=== PATIENT | female | born 1950 | race Caucasian/White ===

== ENCOUNTER → 2016-04-15 | Outpatient (CLI) | payer MEDICARE, MEDICAID | LOC: OD 12:16 | PROVIDERS: ATTEND Family Medicine | DX: M25.552 Pain in left hip (principal); M25.512 Pain in left shoulder ==

== ENCOUNTER → 2016-05-23 | Outpatient (CLI) | payer MEDICARE, MEDICAID | LOC: WI 09:36 | PROVIDERS: ATTEND Physician Assistant | DX: M81.0 Age-related osteoporosis without current pathological fracture (principal) | CPT/HCPCS: 77080 ==

== ENCOUNTER 2016-12-17 17:33 | Emergency (ER) | payer MEDICARE, MEDICAID ==
--- NOTE | 2016-12-17 18:33 | ER Document Report ---
ED General - General Mode of Arrival: Medic Information source: Patient TRAVEL OUTSIDE OF THE U.S. IN LAST 30 DAYS: No - HPI Similar symptoms previously: Yes Recently seen / treated by doctor: No <MAGGIE MURRELL - Last Filed: 12/17/16 19:29> <DANIEL PETERSON - Last Filed: 12/17/16 22:18> - General Chief Complaint: Facial Injury Stated Complaint: FALL Time Seen by Provider: 12/17/16 18:12 Notes: Patient is a 66-year-old female presenting to the emergency department via EMS for fall. Patient states that 1 of her neighbors contacted EMS and told them that she had fallen again. Patient states she does not know which neighbor contacted EMS. Patient states that the facial bruising was caused from her fall on Monday. Patient states that she has had hypotension and was 88/68 with EMS. Increased falls and weakness due to her hypotension. Patient states that she is being worked up for this at Dr. Lopez's office. Patient did have a history of hypertension and she has been taken off all of her medications for such. Patient also complains of some pain to her knees and ribs. Patient requests to get a shingles vaccination. PCP Dr. Lopez. (MAGGIE MURRELL) Review of the [place] control substance reporting system shows the patient used to be on oxycodone 10 mg 4 times daily. She has not filled a prescription for this medication now in the past 3-4 months. She is asking for a shingles vaccine because she has recently had an outbreak of shingles on her left upper back. Examination shows this to be a fairly new outbreak, she reports just noticing it yesterday. (DANIEL PETERSON) - Related Data Allergies/Adverse Reactions: Beta-Blockers (Beta-Adrenergic Bloc Allergy (Verified 07/25/13 12:39) Iodinated Contrast- Oral and IV Dye [IV Dye, Iodine Containing] Allergy ( Verified 07/25/13 12:39) Past Medical History - General Information source: Patient - Social History Smoking Status: Never Smoker Cigarette use (# per day): No Chew tobacco use (# tins/day): No Smoking Education Provided: No Frequency of alcohol use: None Drug Abuse: None Family History: None Patient has suicidal ideation: No Patient has homicidal ideation: No - Past Medical History Cardiac Medical History: Reports: Hx Coronary Artery Disease, Hx Hypercholesterolemia, Hx Hypertension Endocrine Medical History: Reports: Hx Diabetes Mellitus Type 2 Musculoskeltal Medical History: Reports Hx Gout Psychiatric Medical History: Reports: Hx Depression Past Surgical History: Reports: Hx Cardiac Catheterization, Hx Cardiac Surgery - stents - Immunizations Hx Diphtheria, Pertussis, Tetanus Vaccination: Yes <MAGGIE MURRELL - Last Filed: 12/17/16 19:29> Review of Systems - Review of Systems Constitutional: See HPI, Weakness EENT: No symptoms reported Cardiovascular: See HPI Respiratory: No symptoms reported Gastrointestinal: No symptoms reported Genitourinary: No symptoms reported Female Genitourinary: No symptoms reported Musculoskeletal: See HPI Skin: See HPI Hematologic/Lymphatic: No symptoms reported Neurological/Psychological: See HPI, Weakness -: Yes All other systems reviewed and negative <HANDYMAGGIE - Last Filed: 12/17/16 19:29> Physical Exam - Vital signs Interpretation: Hypotensive <MAGGIE MURRELL - Last Filed: 12/17/16 19:29> <DANIEL PETERSON - Last Filed: 12/17/16 22:18> - Vital signs Vitals: Temp Pulse Resp BP Pulse Ox 98.5 F 68 16 91/62 L 20 L 12/17/16 18:00 12/17/16 18:00 12/17/16 18:00 12/17/16 18:00 12/17/16 18:00 - Notes Notes: GENERAL: Alert, interacts well. No acute distress. HEAD: Normocephalic, old bruising to the right forehead and right jaw. Abrasions to the right zygomatic face. EYES: Appear normal. Pupils equal, round, and reactive to light. ENT: Moist mucus membranes, tongue midline. NECK: Full range of motion. Supple. Trachea midline. LUNGS: Clear to auscultation bilaterally, no wheezes, rales, or rhonchi. No respiratory distress. Tenderness to palpate over the right inferior-lateral ribs. HEART: Regular rate and rhythm. No murmurs, gallops, or rubs. ABDOMEN: Soft, non-tender. Non-distended. Normal bowel sounds. EXTREMITIES: Moves all 4 extremities spontaneously. Normal strength. Abrasions and contusions to the anterior knees bilaterally. No edema. NEUROLOGICAL: Alert and oriented x3. Normal speech. No focal neurological deficits. GCS 15. PSYCH: Normal affect, normal mood. SKIN: Warm, dry, normal turgor. Shingle-like vesicles and erythematous patches around the left T2 region. (MAGGIE MURRELL) Course - Laboratory Result Diagrams: 12/17/16 18:22 12/17/16 18:22 <MAGGIE MURRELL - Last Filed: 12/17/16 19:29> - Laboratory Result Diagrams: 12/17/16 18:22 12/17/16 18:22 - Diagnostic Test Radiology reviewed: Image reviewed, Reports reviewed - X-ray shows a mildly displaced transverse fracture of the right eighth rib anteriorly. CT scan of the head does not show any acute abnormality. <DANIEL PETERSON - Last Filed: 12/17/16 22:18> - Re-evaluation Re-evalutation: 12/17/16 22:18 Orthostatic vital signs show the patient's systolic pressure stays in the 90s the entire time and she does not get symptomatic. She was then allowed to walk around the department and remained quite steady on her feet, denied any symptoms at all and did not have a drop in blood pressure. Her son was called and he will come pick her up. (DANIEL PETERSON) - Vital Signs Vital signs: Temp Pulse Resp BP Pulse Ox 98.5 F 68 20 92/56 L 98 12/17/16 18:00 12/17/16 18:00 12/17/16 20:07 12/17/16 21:37 12/17/16 21:37 - Laboratory Laboratory results interpreted by me: 12/17/16 12/17/16 18:22 18:22 RBC 2.87 L Hgb 9.3 L Hct 27.4 L RDW 14.6 H Plt Count 113 L Monocytes % 13.4 H Chloride 110 H Creatinine 1.46 H Est GFR ( Amer) 43 L Est GFR (Non-Af Amer) 36 L Glucose 129 H Calcium 8.3 L Total Protein 5.5 L Albumin 3.3 L Discharge <MAGGIE MURRELL - Last Filed: 12/17/16 19:29> <DANIEL PETERSON - Last Filed: 12/17/16 22:18> - Discharge Clinical Impression: Fall Qualifiers: Encounter type: initial encounter Qualified Code(s): W19.XXXA - Unspecified fall, initial encounter Facial contusion Qualifiers: Encounter type: initial encounter Qualified Code(s): S00.83XA - Contusion of other part of head, initial encounter Closed rib fracture Qualifiers: Encounter type: initial encounter Rib fracture type: single rib Laterality: right Qualified Code(s): S22.31XA - Fracture of one rib, right side, initial encounter for closed fracture Shingles outbreak Qualifiers: Herpes zoster complications: without complications Qualified Code(s): B02.9 - Zoster without complications Hypotension Qualifiers: Hypotension type: unspecified hypotension type Qualified Code(s): I95.9 - Hypotension, unspecified Condition: Stable Disposition: HOME, SELF-CARE Additional Instructions: Your blood pressure has come up with IV fluids. Your examination shows that you have a recent outbreak of shingles on your left upper back. X-rays show you have a mildly displaced fracture of the right eighth rib. The CT scan of your head did not show any facial fractures or abnormalities of your brain. With rib fractures it is important to take big deep breath and cough regularly to keep the lungs inflated. Take the acyclovir(Zovirax) as prescribed for the shingles. Take the pain medications as needed. Drink plenty of fluids. Take fall precautions. Follow-up with your doctor Monday to review your problems with continued low blood pressure. Prescriptions: Acyclovir 800 mg PO Q6 #28 tablet Oxycodone HCl/Acetaminophen [Percocet 5-325 mg Tablet] 1 - 2 tab PO ASDIR PRN # 15 tablet PRN Reason: Referrals: TENISHA LOPEZ MD [Primary Care Provider] - 12/19/16 Scribe Attestation: 12/17/16 22:12 I personally performed the services described in the documentation, reviewed and edited the documentation which was dictated to the scribe in my presence, and it accurately records my words and actions. (DANIEL PETERSON) [employer] Documentation - Scribe Written by Dana:: Dana Kirkpatrick, 12/17/2016 1900 acting as scribe for :: Tam <MAGGIE MURRELL - Last Filed: 12/17/16 19:29>
[2016-12-17 18:44] LABS: ALANINE AMINOTRANSFERASE 39 U/L (9-52); ALBUMIN 3.3 g/dL (3.5-5.0); ALKALINE PHOSPHATASE 68 U/L (38-126); ANION GAP 7 (5-19); ASPARTATE AMINO TRANSFERASE 36 U/L (14-36); BILIRUBIN,DIRECT 0.4 mg/dL (0.0-0.4); BILIRUBIN,TOTAL 0.5 mg/dL (0.2-1.3); BLOOD UREA NITROGEN 19 mg/dL (7-20); CALCIUM 8.3 mg/dL (8.4-10.2); CARBON DIOXIDE 23 mmol/L (22-30); CHLORIDE 110 mmol/L (98-107); CREATININE RESULT 1.46 mg/dL (0.52-1.25); GLUCOSE 129 mg/dL (75-110); POTASSIUM 4.3 mmol/L (3.6-5.0); SODIUM 139.8 mmol/L (137-145); TOTAL PROTEIN 5.5 g/dL (6.3-8.2)
[2016-12-17 18:50] LABS: ABSOLUTE EOSINOPHILS # (AUTO) 0.1 10^3/uL (0.0-0.6); ABSOLUTE LYMPHOCYTES (AUTO) 0.8 10^3/uL (0.5-4.7); ABSOLUTE MONOCYTES (AUTO) 0.8 10^3/uL (0.1-1.4); BASOPHILS % (AUTO) 0.4 % (0-2); HEMATOCRIT 27.4 % (36.0-47.0); HEMOGLOBIN 9.3 g/dL (12.0-15.5); HGB HCT DIFFERENCE 0.5; LYMPHOCYTES % (AUTO) 14.2 % (13-45); MEAN CORPUSCULAR HEMOGLOBIN 32.4 pg (27.0-33.4); MEAN CORPUSCULAR HGB CONC 33.9 g/dL (32.0-36.0); MEAN CORPUSCULAR VOLUME 96 fl (80-97); MONOCYTES % (AUTO) 13.4 % (3-13); RED BLOOD COUNT 2.87 10^6/uL (3.72-5.28); RED CELL DISTRIBUTION WIDTH 14.6 % (11.5-14.0); WHITE BLOOD COUNT 5.7 10^3/uL (4.0-10.5)
--- NOTE | 2016-12-17 18:57 | RADIOLOGY REPORT (SQ) ---
EXAM DESCRIPTION: CT HEAD WITHOUT COMPLETED DATE/TIME: 12/17/2016 6:43 pm REASON FOR STUDY: Plavix, fall, hit Right face and forehead COMPARISON: None. TECHNIQUE: Axial images acquired through the brain without intravenous contrast. Images reviewed wi th bone, brain and subdural windows. Images stored on PACS. All CT scanners at this facility use dose modulation, iterative reconstruction, and/or weight based d osing when appropriate to reduce radiation dose to as low as reasonably achievable (ALARA). [facility]: Dose Right [facility]: CareDose [facility]: Dose Right [facility]: Teradose 4D [facility]: QXL [employer] RADIATION DOSE: Up-to-date CT equipment and radiation dose reduction techniques were employed. CTDIv ol: 64.6 mGy. DLP: 1163 mGy-cm. mGy. LIMITATIONS: None. FINDINGS: VENTRICLES: Normal size and contour. CEREBRUM: No masses. No hemorrhage. No midline shift. No evidence for acute infarction. Normal gra y/white matter differentiation. No areas of low density in the white matter. CEREBELLUM: No masses. No hemorrhage. No alteration of density. No evidence for acute infarction. EXTRAAXIAL SPACES: No fluid collections. No masses. ORBITS AND GLOBE: No intra- or extraconal masses. Normal contour of globe without masses. CALVARIUM: No fracture. PARANASAL SINUSES: No fluid or mucosal thickening. SOFT TISSUES: No mass or hematoma. OTHER: No other significant finding. IMPRESSION: NORMAL BRAIN CT WITHOUT CONTRAST. EVIDENCE OF ACUTE STROKE: NO. COMMENT: Quality ID # 436: Final reports with documentation of one or more dose reduction techniques (e.g., Automated exposure control, adjustment of the mA and/or kV according to patient size, use of iterative reconstruction technique) TECHNICAL DOCUMENTATION: JOB ID: [id number]- All Rights Reserved
--- NOTE | 2016-12-17 19:03 | RADIOLOGY REPORT (SQ) ---
EXAM DESCRIPTION: RIBS RIGHT W/PA CHEST COMPLETED DATE/TIME: 12/17/2016 6:50 pm REASON FOR STUDY: fall, right rib pain COMPARISON: None. TECHNIQUE: Frontal view of the chest and additional views of the right ribs acquired. NUMBER OF VIEWS: Three view. LIMITATIONS: None. FINDINGS: FRONTAL CXR: No pneumothorax. No pleural effusion. No atelectasis or infiltrates. RIBS: There is a mildly displaced transverse fracture of the right 8th rib anteriorly. OTHER: No other significant finding. IMPRESSION: Mildly displaced transverse fracture of the right 8th rib anteriorly. No pneumothorax. COMMENT: SITE OF TRAUMA/COMPLAINT MARKED/STAMP COMPLETED: YES. TECHNICAL DOCUMENTATION: JOB ID: [id number] [employer]- All Rights Reserved
[2016-12-17] MEDS ORDERED: HYDROCODONE/ACETAMINOPHEN 5-325 MG 6 TAB/DSPK PO PRN ×2 (19:24→22:13)
[2016-12-17] MEDS ORDERED: ACYCLOVIR 800 MG TABLET PO ONE (19:24)
[2016-12-17] MEDS ORDERED: OXYCODONE-ACETAMINOPHEN 5-325 MG TABLET PO ONE (19:24)
[2016-12-17] MEDS ORDERED: NORMAL SALINE 1000 ML 1,000 ML IV ONE (19:34)
[2016-12-17] MEDS ORDERED: ACYCLOVIR 800 MG TABLET ONE (20:59)
[2016-12-17 23:13] VITALS: BP 101/57
[2016-12-17 23:18] LABS: AMORPHOUS SEDIMENT,URINE TRACE /HPF; APPEARANCE,URINE SLIGHTLY-CLOUDY; BILIRUBIN,URINE NEGATIVE (NEGATIVE); GLUCOSE, URINE NEGATIVE (NEGATIVE); KETONES,URINE NEGATIVE (NEGATIVE); LEUKOCYTE ESTERASE,URINE MODERATE (NEGATIVE); NITRITE,URINE NEGATIVE (NEGATIVE); PROTEIN,URINE 30 mg/dL (NEGATIVE); URINE SPECIFIC GRAVITY 1.015; UROBILINOGEN,URINE NEGATIVE mg/dL (<2.0)
== END 2016-12-17 23:05 | disposition home or self-care (01) ==
LOC: ER 17:33
DX: S00.83XA Contusion of other part of head, initial encounter (principal); S22.31XA Fracture of one rib, right side, initial encounter for closed fracture; I10 Essential (primary) hypertension; B02.9 Zoster without complications; I95.9 Hypotension, unspecified; W19.XXXA Unspecified fall, initial encounter
CPT/HCPCS: 99284; 96360; 36415; 85025; 80053; 81001; 71101; 70450; A9270 ×3; J7030; J3490

== ENCOUNTER → 2017-02-27 | Outpatient (CLI) | payer MEDICARE, MEDICAID ==
[2017-02-27 09:40] LABS: APPEARANCE,URINE CLEAR; BILIRUBIN,URINE NEGATIVE (NEGATIVE); GLUCOSE, URINE NEGATIVE (NEGATIVE); KETONES,URINE NEGATIVE (NEGATIVE); LEUKOCYTE ESTERASE,URINE SMALL (NEGATIVE); NITRITE,URINE NEGATIVE (NEGATIVE); PROTEIN,URINE NEGATIVE (NEGATIVE); URINE SPECIFIC GRAVITY 1.008; UROBILINOGEN,URINE NEGATIVE mg/dL (<2.0)
[2017-02-27 09:48] LABS: ABSOLUTE EOSINOPHILS # (AUTO) 0.1 10^3/uL (0.0-0.6); ABSOLUTE LYMPHOCYTES (AUTO) 1.4 10^3/uL (0.5-4.7); ABSOLUTE MONOCYTES (AUTO) 0.5 10^3/uL (0.1-1.4); ABSOLUTE NEUT (AUTO) 6.8 10^3/uL (1.7-8.2); BASOPHILS % (AUTO) 0.4 % (0-2); EOSINOPHILS % (AUTO) 0.7 % (0-6); HEMOGLOBIN 8.3 g/dL (12.0-15.5); HGB HCT DIFFERENCE -0.1; LYMPHOCYTES % (AUTO) 15.5 % (13-45); MEAN CORPUSCULAR HEMOGLOBIN 32.1 pg (27.0-33.4); MEAN CORPUSCULAR HGB CONC 33.3 g/dL (32.0-36.0); MEAN CORPUSCULAR VOLUME 96 fl (80-97); MONOCYTES % (AUTO) 5.8 % (3-13); RED BLOOD COUNT 2.59 10^6/uL (3.72-5.28); RED CELL DISTRIBUTION WIDTH 14.4 % (11.5-14.0); SEGMENTED NEUTROPHILS % (AUTO) 77.6 % (42-78); WHITE BLOOD COUNT 8.8 10^3/uL (4.0-10.5)
[2017-02-27 10:15] LABS: ANION GAP 15 (5-19); BLOOD UREA NITROGEN 36 mg/dL (7-20); CALCIUM 8.3 mg/dL (8.4-10.2); CARBON DIOXIDE 17 mmol/L (22-30); CHLORIDE 110 mmol/L (98-107); GLUCOSE 167 mg/dL (75-110); PHOSPHORUS 3.2 mg/dL (2.5-4.5); POTASSIUM 4.5 mmol/L (3.6-5.0); SODIUM 142.4 mmol/L (137-145)
[2017-02-28 11:40] LABS: CREATININE URINE 33.9 mg/dL (Not Estab.); MICROALBUMIN URINE 9.9 ug/mL (Not Estab.)
== END ==
LOC: LAB 09:29
PROVIDERS: ATTEND Internal Medicine Nephrology
DX: N18.3 Chronic kidney disease, stage 3 (moderate) (principal); E11.9 Type 2 diabetes mellitus without complications; D64.9 Anemia, unspecified; N17.9 Acute kidney failure, unspecified
CPT/HCPCS: 36415; 80048; 81001; 82043; 82570; 82728; 83540; 83550; 83735; 83970; 84100; 85025

== ENCOUNTER → 2017-03-22 | Outpatient (CLI) | payer MEDICARE, MEDICAID ==
[2017-03-22 10:47] LABS: ABSOLUTE EOSINOPHILS # (AUTO) 0.2 10^3/uL (0.0-0.6); ABSOLUTE LYMPHOCYTES (AUTO) 1.2 10^3/uL (0.5-4.7); ABSOLUTE MONOCYTES (AUTO) 0.7 10^3/uL (0.1-1.4); ABSOLUTE NEUT (AUTO) 6.1 10^3/uL (1.7-8.2); BASOPHILS % (AUTO) 0.3 % (0-2); EOSINOPHILS % (AUTO) 2.1 % (0-6); HEMATOCRIT 24.7 % (36.0-47.0); HEMOGLOBIN 8.2 g/dL (12.0-15.5); LYMPHOCYTES % (AUTO) 14.7 % (13-45); MEAN CORPUSCULAR HEMOGLOBIN 32.7 pg (27.0-33.4); MEAN CORPUSCULAR HGB CONC 33.2 g/dL (32.0-36.0); MEAN CORPUSCULAR VOLUME 99 fl (80-97); MONOCYTES % (AUTO) 8.9 % (3-13); PLATELET COUNT 189 10^3/uL (150-450); RED CELL DISTRIBUTION WIDTH 14.8 % (11.5-14.0); TOTAL CELLS COUNTED % (AUTO) 100 %; WHITE BLOOD COUNT 8.3 10^3/uL (4.0-10.5)
[2017-03-22 11:05] LABS: ANION GAP 13 (5-19); BLOOD UREA NITROGEN 25 mg/dL (7-20); CALCIUM 9.4 mg/dL (8.4-10.2); CARBON DIOXIDE 22 mmol/L (22-30); CHLORIDE 108 mmol/L (98-107); GLUCOSE 93 mg/dL (75-110); MAGNESIUM 2.3 mg/dL (1.6-2.3); POTASSIUM 4.3 mmol/L (3.6-5.0)
== END ==
LOC: LAB 10:32
PROVIDERS: ATTEND Internal Medicine Nephrology
DX: N17.9 Acute kidney failure, unspecified (principal); D63.8 Anemia in other chronic diseases classified elsewhere; E21.3 Hyperparathyroidism, unspecified
CPT/HCPCS: 36415; 80048; 83735; 83970; 85025

== ENCOUNTER → 2017-07-17 | Outpatient (CLI) | payer MEDICARE, MEDICAID ==
[2017-07-17 14:31] LABS: ABSOLUTE BASOPHILS # (AUTO) 0.1 10^3/uL (0.0-0.2); ABSOLUTE EOSINOPHILS # (AUTO) 0.2 10^3/uL (0.0-0.6); ABSOLUTE LYMPHOCYTES (AUTO) 1.3 10^3/uL (0.5-4.7); ABSOLUTE MONOCYTES (AUTO) 0.5 10^3/uL (0.1-1.4); BASOPHILS % (AUTO) 0.9 % (0-2); EOSINOPHILS % (AUTO) 2.7 % (0-6); LYMPHOCYTES % (AUTO) 18.6 % (13-45); MEAN CORPUSCULAR HEMOGLOBIN 31.1 pg (27.0-33.4); MEAN CORPUSCULAR HGB CONC 33.2 g/dL (32.0-36.0); MEAN CORPUSCULAR VOLUME 94 fl (80-97); MONOCYTES % (AUTO) 6.9 % (3-13); PLATELET COUNT 205 10^3/uL (150-450); RED BLOOD COUNT 3.52 10^6/uL (3.72-5.28); RED CELL DISTRIBUTION WIDTH 15.2 % (11.5-14.0); SEGMENTED NEUTROPHILS % (AUTO) 70.9 % (42-78); TOTAL CELLS COUNTED % (AUTO) 100 %
[2017-07-17 14:49] LABS: ALBUMIN 4.2 g/dL (3.5-5.0); ANION GAP 15 (5-19); BLOOD UREA NITROGEN 35 mg/dL (7-20); CALCIUM 9.4 mg/dL (8.4-10.2); CARBON DIOXIDE 18 mmol/L (22-30); CHLORIDE 109 mmol/L (98-107); IRON(TIBC) 95.8 ug/dL (37-170); POTASSIUM 4.6 mmol/L (3.6-5.0); SODIUM 142.4 mmol/L (137-145)
[2017-07-17 15:29] LABS: GLUCOSE 37 mg/dL (75-110)
== END ==
LOC: OD 13:22
PROVIDERS: ATTEND Internal Medicine Nephrology
DX: N18.4 Chronic kidney disease, stage 4 (severe) (principal); E21.3 Hyperparathyroidism, unspecified; D63.8 Anemia in other chronic diseases classified elsewhere; E83.42 Hypomagnesemia
CPT/HCPCS: 36415; 80048; 82040; 82306; 82728; 83540; 83550; 83735; 83970; 84100; 85025

== ENCOUNTER → 2017-10-16 | Outpatient (CLI) | payer MEDICARE, MEDICAID ==
[2017-10-16 10:59] LABS: ABSOLUTE EOSINOPHILS # (AUTO) 0.2 10^3/uL (0.0-0.6); ABSOLUTE LYMPHOCYTES (AUTO) 1.5 10^3/uL (0.5-4.7); ABSOLUTE MONOCYTES (AUTO) 0.6 10^3/uL (0.1-1.4); ABSOLUTE NEUT (AUTO) 5.2 10^3/uL (1.7-8.2); BASOPHILS % (AUTO) 0.7 % (0-2); EOSINOPHILS % (AUTO) 2.3 % (0-6); HEMATOCRIT 31.3 % (36.0-47.0); HEMOGLOBIN 10.7 g/dL (12.0-15.5); MEAN CORPUSCULAR HEMOGLOBIN 32.2 pg (27.0-33.4); MEAN CORPUSCULAR HGB CONC 34.1 g/dL (32.0-36.0); MEAN CORPUSCULAR VOLUME 95 fl (80-97); MONOCYTES % (AUTO) 8.2 % (3-13); PLATELET COUNT 196 10^3/uL (150-450); RED BLOOD COUNT 3.31 10^6/uL (3.72-5.28); RED CELL DISTRIBUTION WIDTH 14.7 % (11.5-14.0); SEGMENTED NEUTROPHILS % (AUTO) 68.8 % (42-78); TOTAL CELLS COUNTED % (AUTO) 100 %; WHITE BLOOD COUNT 7.6 10^3/uL (4.0-10.5)
[2017-10-16 11:25] LABS: ANION GAP 10 (5-19); BLOOD UREA NITROGEN 24 mg/dL (7-20); CALCIUM 8.8 mg/dL (8.4-10.2); CARBON DIOXIDE 20 mmol/L (22-30); CHLORIDE 111 mmol/L (98-107); GLUCOSE 135 mg/dL (75-110); IRON(TIBC) 68.3 ug/dL (37-170); POTASSIUM 4.4 mmol/L (3.6-5.0); SODIUM 141.1 mmol/L (137-145)
== END ==
LOC: LAB 09:42
PROVIDERS: ATTEND Internal Medicine Nephrology
DX: E11.22 Type 2 diabetes mellitus with diabetic chronic kidney disease (principal); N18.4 Chronic kidney disease, stage 4 (severe); N25.81 Secondary hyperparathyroidism of renal origin; D63.8 Anemia in other chronic diseases classified elsewhere
CPT/HCPCS: 36415; 80048; 82728; 83540; 83550; 83970; 85025

== ENCOUNTER 2017-10-17 11:22 | Emergency (ER) | payer MEDICARE, OTHER, MEDICAID ==
[2017-10-17 11:56] LABS: ABSOLUTE BASOPHILS # (AUTO) 0.1 10^3/uL (0.0-0.2); ABSOLUTE EOSINOPHILS # (AUTO) 0.1 10^3/uL (0.0-0.6); ABSOLUTE LYMPHOCYTES (AUTO) 1.2 10^3/uL (0.5-4.7); ABSOLUTE MONOCYTES (AUTO) 0.5 10^3/uL (0.1-1.4); ABSOLUTE NEUT (AUTO) 5.5 10^3/uL (1.7-8.2); BASOPHILS % (AUTO) 0.7 % (0-2); EOSINOPHILS % (AUTO) 1.9 % (0-6); HEMOGLOBIN 10.5 g/dL (12.0-15.5); LYMPHOCYTES % (AUTO) 16.3 % (13-45); MEAN CORPUSCULAR HEMOGLOBIN 32.3 pg (27.0-33.4); MEAN CORPUSCULAR VOLUME 95 fl (80-97); MONOCYTES % (AUTO) 6.9 % (3-13); PLATELET COUNT 174 10^3/uL (150-450); RED BLOOD COUNT 3.26 10^6/uL (3.72-5.28); RED CELL DISTRIBUTION WIDTH 15.1 % (11.5-14.0); SEGMENTED NEUTROPHILS % (AUTO) 74.2 % (42-78); TOTAL CELLS COUNTED % (AUTO) 100 %; WHITE BLOOD COUNT 7.4 10^3/uL (4.0-10.5)
[2017-10-17 12:07] LABS: INTERNATIONAL RATION (INR) 0.96; PROTHROMBIN TIME 13.2 SEC (11.4-15.4)
--- NOTE | 2017-10-17 12:15 | RADIOLOGY REPORT (SQ) ---
EXAM DESCRIPTION: CT HEAD WITHOUT COMPLETED DATE/TIME: 10/17/2017 12:05 pm REASON FOR STUDY: fall COMPARISON: 12/17/2016. TECHNIQUE: Axial images acquired through the brain without intravenous contrast. Images reviewed wi th bone, brain and subdural windows. Additional sagittal and coronal reconstructions were generated. Images stored on PACS. All CT scanners at this facility use dose modulation, iterative reconstruction, and/or weight based d osing when appropriate to reduce radiation dose to as low as reasonably achievable (ALARA). [facility]: Dose Right [facility]: CareDose [facility]: Dose Right [facility]: Teradose 4D [facility]: [employer] RADIATION DOSE: CT Rad equipment meets quality standard of care and radiation dose reduction techniq ues were employed. CTDIvol: 53.2 mGy. DLP: 991 mGy-cm. mGy. LIMITATIONS: None. FINDINGS: VENTRICLES: Normal size and contour. CEREBRUM: No masses. No hemorrhage. No midline shift. No evidence for acute infarction. Normal gra y/white matter differentiation. No areas of low density in the white matter. CEREBELLUM: No masses. No hemorrhage. No alteration of density. No evidence for acute infarction. EXTRAAXIAL SPACES: No fluid collections. No masses. ORBITS AND GLOBE: No intra- or extraconal masses. Normal contour of globe without masses. CALVARIUM: No fracture. PARANASAL SINUSES: No fluid or mucosal thickening. SOFT TISSUES: No mass or hematoma. OTHER: No other significant finding. IMPRESSION: NORMAL BRAIN CT WITHOUT CONTRAST. EVIDENCE OF ACUTE STROKE: NO. COMMENT: Quality ID # 436: Final reports with documentation of one or more dose reduction techniques (e.g., Automated exposure control, adjustment of the mA and/or kV according to patient size, use of iterative reconstruction technique) TECHNICAL DOCUMENTATION: JOB ID: [id number] [employer]- All Rights Reserved Reading location - IP/workstation name: [email or web address]
--- NOTE | 2017-10-17 12:19 | RADIOLOGY REPORT (SQ) ---
EXAM DESCRIPTION: CT FACIAL AREA WITHOUT COMPLETED DATE/TIME: 10/17/2017 12:10 pm REASON FOR STUDY: fall COMPARISON: 12/24/2015. TECHNIQUE: Noncontrasted images through the facial bones and orbits windowed for bone and soft tissu e. Additional coronal and sagittal reconstructed images reviewed. All images stored on PACS. All CT scanners at this facility use dose modulation, iterative reconstruction, and/or weight based d osing when appropriate to reduce radiation dose to as low as reasonably achievable (ALARA). [facility]: Dose Right [facility]: CareDose [facility]: Dose Right [facility]: Teradose 4D [facility]: [employer] RADIATION DOSE: CT Rad equipment meets quality standard of care and radiation dose reduction techniq ues were employed. CTDIvol: 30.4 mGy. DLP: 557 mGy-cm. mGy. LIMITATIONS: None. FINDINGS: FACIAL BONES: No acute fracture or bone lesion. There is deformity of the nasal bone, sim ilar to the prior study. ORBITS: Intact. No fracture. Symmetric intact globes and retroorbital soft tissues. PARANASAL SINUSES: Clear. No significant mucosal thickening, mass or fluid. No nasal polyps. Maxill scott sinus outlets are patent. SOFT TISSUES: No mass or edema. INFERIOR BRAIN: Limited view. No acute findings. OTHER: No other significant finding. IMPRESSION: NO ACUTE FINDINGS. DEFORMITY OF THE NASAL BONE RELATED TO OLD FRACTURE. TECHNICAL DOCUMENTATION: JOB ID: [id number] Quality ID # [id number]: Final reports with documentation of one or more dose reduction techniques (e.g., Au tomated exposure control, adjustment of the mA and/or kV according to patient size, use of iterative reconstruction technique) 2010 [employer]- All Rights Reserved Reading location - IP/workstation name: [email or web address]
[2017-10-17 12:25] LABS: CREATINE KINASE MB 0.53 ng/mL (<4.55)
[2017-10-17 12:30] LABS: TROPONIN I < 0.012 ng/mL
--- NOTE | 2017-10-17 12:52 | ER Document Report ---
ED General - General Chief Complaint: Fall Stated Complaint: FALL, NO PAIN Time Seen by Provider: 10/17/17 11:27 Mode of Arrival: Medic Information source: Patient Notes: 67-year-old female resents after mechanical fall. Patient notes that she has multiple falls denies any weakness currently but states when she ambulates her legs get heavy intermittently. Patient states this is been having burning over the past 8 months. She denies any chest pain shortness breath difficulty breathing. Patient is on Plavix and aspirin therefore striking her face TRAVEL OUTSIDE OF THE [place] IN LAST 30 DAYS: No - HPI Onset: Just prior to arrival Onset/Duration: Sudden Quality of pain: Achy Severity: Mild Pain Level: 1 Associated symptoms: Other Exacerbated by: Movement, Walking Relieved by: Denies Similar symptoms previously: Yes Recently seen / treated by doctor: Yes - Related Data Allergies/Adverse Reactions: Beta-Blockers (Beta-Adrenergic Bloc Allergy (Verified 12/17/16 23:23) Iodinated Contrast- Oral and IV Dye [IV Dye, Iodine Containing] Allergy ( Verified 12/17/16 23:23) Past Medical History - Social History Smoking Status: Never Smoker Cigarette use (# per day): No Chew tobacco use (# tins/day): No Smoking Education Provided: No Family History: None Patient has suicidal ideation: No Patient has homicidal ideation: No - Past Medical History Cardiac Medical History: Reports: Hx Coronary Artery Disease, Hx Hypercholesterolemia, Hx Hypertension Endocrine Medical History: Reports: Hx Diabetes Mellitus Type 2 Renal/ Medical History: Denies: Hx Peritoneal Dialysis Musculoskeletal Medical History: Reports Hx Gout Psychiatric Medical History: Reports: Hx Depression Past Surgical History: Reports: Hx Cardiac Catheterization, Hx Cardiac Surgery - stents - Immunizations Hx Diphtheria, Pertussis, Tetanus Vaccination: Yes Review of Systems - Review of Systems Notes: REVIEW OF SYSTEMS: CONSTITUTIONAL : Denies fever, chills, or sweats. Denies recent illness. EENT: Denies eye, ear, throat, or mouth pain or symptoms. Denies nasal or sinus congestion or discharge. Denies throat, tongue, or mouth swelling or difficulty swallowing. CARDIOVASCULAR: Denies chest pain. Denies palpitations or racing or irregular heart beat. Denies ankle edema. RESPIRATORY: Denies cough, cold, or chest congestion. Denies shortness of breath, difficulty breathing, or wheezing. GASTROINTESTINAL: Denies abdominal pain or distention. Denies nausea, vomiting , or diarrhea. Denies blood in vomitus, stools, or per rectum. Denies black, tarry stools. Denies constipation. GENITOURINARY: Denies difficulty urinating, painful urination, burning, frequency, blood in urine, or discharge. FEMALE GENITOURINARY: Denies vaginal bleeding, heavy or abnormal periods, irregular periods. Denies vaginal discharge or odor. MUSCULOSKELETAL: Denies back or neck pain or stiffness. Denies joint pain or swelling. SKIN: Abrasions HEMATOLOGIC : Denies easy bruising or bleeding. LYMPHATIC: Denies swollen, enlarged glands. NEUROLOGICAL: Admits to fall PSYCHIATRIC: Denies anxiety or stress. Denies depression, suicidal ideation, or homicidal ideation. ALL OTHER SYSTEMS REVIEWED AND NEGATIVE. PHYSICAL EXAMINATION: GENERAL: Well-appearing, well-nourished and in no acute distress. HEAD: Left frontal hematoma EYES: Pupils equal round and reactive to light, extraocular movements intact, conjunctiva are normal. ENT: Nares patent, oropharynx clear without exudates. Moist mucous membranes. NECK: Normal range of motion, supple without lymphadenopathy LUNGS: Breath sounds clear to auscultation bilaterally and equal. No wheezes rales or rhonchi. HEART: Regular rate and rhythm without murmurs ABDOMEN: Soft, nontender, nondistended abdomen. No guarding, no rebound. No masses appreciated. Female : deferred Musculoskeletal: Normal range of motion, no pitting or edema. No cyanosis. NEUROLOGICAL: Cranial nerves grossly intact. Normal speech, normal gait. Normal sensory, motor exams PSYCH: Normal mood, normal affect. SKIN: Abrasion to nose abrasion to cheek left frontal hematoma Dictation was performed using [employer] voice recognition software Course - Re-evaluation Re-evalutation: 10/17/17 13:20 CT imaging notes no significant abnormality, patient overall looks well, she is in no significant distress she does have chronic kidney disease Patient stable for discharge After performing a Medical Screening Examination, I estimate there is LOW risk for INTRACRANIAL HEMORRHAGE, UNSTABLE SPINE FRACTURE, CENTRAL CORD SYNDROME, CAUDA EQUINA, THORACIC AORTIC DISSECTION, PNEUMOTHORAX, PERFORATED BOWEL, RUPTURED ABDOMINAL AORTIC ANEURYSM, ACUTE TENDON RUPTURE, COMPARTMENT SYNDROME, or OPEN FRACTURE, thus I consider the discharge disposition reasonable. Also, there is no evidence or peritonitis, sepsis, or toxicity. I have reevaluated this patient multiple times and no significant life threatening changes are noted. The patient and I have discussed the diagnosis and risks, and we agree with discharging home to follow-up with their primary doctor with the understanding that symptoms and presentations can change. We also discussed returning to the Emergency Department immediately if new or worsening symptoms occur. We have discussed the symptoms which are most concerning (e.g., bloody stool, fever, changing or worsening pain, vomiting) that necessitate immediate return. - Laboratory Result Diagrams: 10/17/17 11:42 10/17/17 11:42 Laboratory results interpreted by me: 10/17/17 10/17/17 11:42 11:42 RBC 3.26 L Hgb 10.5 L Hct 31.0 L RDW 15.1 H Chloride 113 H BUN 21 H Creatinine 1.66 H Est GFR ( Amer) 37 L Est GFR (Non-Af Amer) 31 L Glucose 140 H AST 100 H Total Protein 6.1 L Discharge - Discharge Clinical Impression: Fall Qualifiers: Encounter type: initial encounter Qualified Code(s): W19.XXXA - Unspecified fall, initial encounter Hematoma of frontal scalp Qualifiers: Encounter type: initial encounter Qualified Code(s): S00.03XA - Contusion of scalp, initial encounter Condition: Stable Disposition: HOME, SELF-CARE Instructions: Head Injury Precautions ([facility]) Referrals: TENISHA RIVAS MD [Primary Care Provider] - Follow up as needed
[2017-10-17 13:12] LABS: ALANINE AMINOTRANSFERASE 41 U/L (9-52); ALBUMIN 3.6 g/dL (3.5-5.0); ALKALINE PHOSPHATASE 65 U/L (38-126); ANION GAP 7 (5-19); ASPARTATE AMINO TRANSFERASE 100 U/L (14-36); BILIRUBIN,DIRECT 0.3 mg/dL (0.0-0.4); BILIRUBIN,TOTAL 0.4 mg/dL (0.2-1.3); BLOOD UREA NITROGEN 21 mg/dL (7-20); CALCIUM 8.7 mg/dL (8.4-10.2); CARBON DIOXIDE 23 mmol/L (22-30); CHLORIDE 113 mmol/L (98-107); GLUCOSE 140 mg/dL (75-110); POTASSIUM 4.4 mmol/L (3.6-5.0); SODIUM 143.3 mmol/L (137-145); TOTAL PROTEIN 6.1 g/dL (6.3-8.2)
[2017-10-17 13:31] VITALS: BP 107/71
--- NOTE | 2017-10-17 22:13 | EKG REPORT ---
SEVERITY:- OTHERWISE NORMAL ECG - SINUS RHYTHM BORDERLINE LEFT AXIS DEVIATION : Confirmed by: Rufina Wade 17-Oct-2017 22:12:34
== END 2017-10-17 13:46 | disposition home or self-care (01) ==
LOC: ER 11:22
DX: S00.31XA Abrasion of nose, initial encounter (principal); S00.81XA Abrasion of other part of head, initial encounter; S00.03XA Contusion of scalp, initial encounter; W19.XXXA Unspecified fall, initial encounter; Z91.81 History of falling; I25.10 Atherosclerotic heart disease of native coronary artery without angina pectoris; E78.00 Pure hypercholesterolemia, unspecified; I10 Essential (primary) hypertension; E11.9 Type 2 diabetes mellitus without complications
CPT/HCPCS: 36415; 70450; 70486; 80053; 82550; 82553; 84484; 85025; 85610; 93005; 93010; 99284

== ENCOUNTER → 2017-12-20 | Outpatient (CLI) | payer MEDICARE, MEDICAID ==
[2017-12-20 11:56] LABS: ABSOLUTE BASOPHILS # (AUTO) 0.1 10^3/uL (0.0-0.2); ABSOLUTE EOSINOPHILS # (AUTO) 0.2 10^3/uL (0.0-0.6); ABSOLUTE LYMPHOCYTES (AUTO) 1.4 10^3/uL (0.5-4.7); ABSOLUTE MONOCYTES (AUTO) 0.6 10^3/uL (0.1-1.4); ABSOLUTE NEUT (AUTO) 8.6 10^3/uL (1.7-8.2); BASOPHILS % (AUTO) 0.5 % (0-2); HEMATOCRIT 31.2 % (36.0-47.0); HEMOGLOBIN 10.4 g/dL (12.0-15.5); LYMPHOCYTES % (AUTO) 13.1 % (13-45); MEAN CORPUSCULAR HEMOGLOBIN 31.6 pg (27.0-33.4); MEAN CORPUSCULAR HGB CONC 33.5 g/dL (32.0-36.0); MEAN CORPUSCULAR VOLUME 94 fl (80-97); MONOCYTES % (AUTO) 5.4 % (3-13); PLATELET COUNT 267 10^3/uL (150-450); RED BLOOD COUNT 3.31 10^6/uL (3.72-5.28); RED CELL DISTRIBUTION WIDTH 15.7 % (11.5-14.0); TOTAL CELLS COUNTED % (AUTO) 100 %; WHITE BLOOD COUNT 10.9 10^3/uL (4.0-10.5)
[2017-12-20 12:18] LABS: ANION GAP 9 (5-19); BLOOD UREA NITROGEN 30 mg/dL (7-20); CALCIUM 9.1 mg/dL (8.4-10.2); CARBON DIOXIDE 26 mmol/L (22-30); CHLORIDE 107 mmol/L (98-107); GLUCOSE 105 mg/dL (75-110); IRON(TIBC) 72.5 ug/dL (37-170); POTASSIUM 3.6 mmol/L (3.6-5.0); SODIUM 141.7 mmol/L (137-145)
== END ==
LOC: LAB 11:19
PROVIDERS: ATTEND Internal Medicine Nephrology
DX: N18.4 Chronic kidney disease, stage 4 (severe) (principal); D63.8 Anemia in other chronic diseases classified elsewhere; N25.81 Secondary hyperparathyroidism of renal origin; E11.9 Type 2 diabetes mellitus without complications
CPT/HCPCS: 36415; 80048; 82728; 83540; 83550; 83970; 85025

== ENCOUNTER → 2018-03-28 | Outpatient (CLI) | payer MEDICARE, MEDICAID ==
[2018-03-28 11:24] LABS: ABSOLUTE BASOPHILS # (AUTO) 0.1 10^3/uL (0.0-0.2); ABSOLUTE EOSINOPHILS # (AUTO) 0.3 10^3/uL (0.0-0.6); ABSOLUTE LYMPHOCYTES (AUTO) 2.3 10^3/uL (0.5-4.7); ABSOLUTE MONOCYTES (AUTO) 0.6 10^3/uL (0.1-1.4); BASOPHILS % (AUTO) 0.7 % (0-2); EOSINOPHILS % (AUTO) 3.3 % (0-6); HEMATOCRIT 33.4 % (36.0-47.0); HEMOGLOBIN 11.4 g/dL (12.0-15.5); LYMPHOCYTES % (AUTO) 24.7 % (13-45); MEAN CORPUSCULAR HEMOGLOBIN 32.2 pg (27.0-33.4); MEAN CORPUSCULAR HGB CONC 34.2 g/dL (32.0-36.0); MEAN CORPUSCULAR VOLUME 94 fl (80-97); PLATELET COUNT 179 10^3/uL (150-450); RED BLOOD COUNT 3.55 10^6/uL (3.72-5.28); SEGMENTED NEUTROPHILS % (AUTO) 64.3 % (42-78); TOTAL CELLS COUNTED % (AUTO) 100 %; WHITE BLOOD COUNT 9.3 10^3/uL (4.0-10.5)
[2018-03-28 11:36] LABS: ANION GAP 12 (5-19); BLOOD UREA NITROGEN 30 mg/dL (7-20); CALCIUM 8.9 mg/dL (8.4-10.2); CARBON DIOXIDE 23 mmol/L (22-30); CHLORIDE 106 mmol/L (98-107); GLUCOSE 110 mg/dL (75-110); POTASSIUM 3.6 mmol/L (3.6-5.0); SODIUM 140.9 mmol/L (137-145)
== END ==
LOC: OD 10:53
PROVIDERS: ATTEND Internal Medicine Nephrology
DX: N18.4 Chronic kidney disease, stage 4 (severe) (principal); N25.81 Secondary hyperparathyroidism of renal origin; D63.8 Anemia in other chronic diseases classified elsewhere; E11.9 Type 2 diabetes mellitus without complications
CPT/HCPCS: 36415; 80048; 82728; 83540; 83550; 83970; 85025

== ENCOUNTER 2018-07-25 09:44 | Day surgery (SDC) | payer MEDICARE, MEDICAID ==
[~2018-07-25 09:44] MED LIST: KETOROLAC TROMETHAMINE 0.45% 4 DROP/0.4 ML DROPERETTE OS PRN
[2018-07-25] MEDS ORDERED: MIDAZOLAM 2 MG/2 ML INJ ONE ×2 (09:49→11:17)
[2018-07-25] MEDS: BESIFLOXACIN HCL 0.6% OPH SUSP 5 ML BOTTLE OS PRN ×4 (10:50→11:35)
[2018-07-25] MEDS: TROPICAMIDE 1% OPH SOLN 3 ML OS PRN ×3 (10:50→11:11)
[2018-07-25] MEDS: TETRACAINE HCL 0.5% OPH SOLN 0.6 ML DROPERETTE OS PRN ×5 (10:50→11:19)
[2018-07-25] MEDS: CYCLOPENTOLATE 0.2%/PHENYLEPHRINE 1% OPH SOLN 2 ML OS PRN ×3 (10:50→11:11)
[2018-07-25] MEDS ORDERED: FENTANYL CITRATE INJ/PF 100 MCG/2 ML AMPUL ONE (11:17)
[2018-07-25] MEDS: LIDOCAINE 1% INJ-PF (10 MG/ML) 30 ML SDV ONE ×2 (11:27)
[2018-07-25] MEDS: CHONDR SU A NA/HYALUR INTRAOC KIT (SURGICARE) ONE ×2 (11:27)
[2018-07-25] MEDS: EPINEPHRINE INJ/PF 1 MG/1 ML AMPULE ONE ×2 (11:27)
[2018-07-25] MEDS: TOBRAMYCIN SULFATE/DEXAMETH OPH OINTMENT 3.5 GM ONE ×2 (11:35)
== END 2018-07-25 12:29 | disposition home or self-care (01) ==
LOC: SC 09:44
PROVIDERS: ATTEND Ophthalmology
DX: H25.12 Age-related nuclear cataract, left eye (principal); I25.10 Atherosclerotic heart disease of native coronary artery without angina pectoris; E11.9 Type 2 diabetes mellitus without complications; I10 Essential (primary) hypertension; E78.00 Pure hypercholesterolemia, unspecified; E03.9 Hypothyroidism, unspecified; M32.9 Systemic lupus erythematosus, unspecified; Z79.899 Other long term (current) drug therapy; Z79.4 Long term (current) use of insulin; Z88.8 Allergy status to other drugs, medicaments and biological substances
CPT/HCPCS: 66984; 82962; V2632; J2250; J3490 ×3; A9270; J0171; J3010; 142

== ENCOUNTER 2018-08-08 09:59 | Day surgery (SDC) | payer MEDICARE, MEDICAID ==
[~2018-08-08 09:59] MED LIST changes: +CHONDR SU A NA/HYALUR INTRAOC KIT (SURGICARE) ONE; +EPINEPHRINE INJ/PF 1 MG/1 ML AMPULE ONE; +KETOROLAC TROMETHAMINE 0.45% 4 DROP/0.4 ML DROPERETTE OD PRN; -KETOROLAC TROMETHAMINE 0.45% 4 DROP/0.4 ML DROPERETTE OS PRN; +LIDOCAINE 1% INJ-PF (10 MG/ML) 30 ML SDV ONE; +TOBRAMYCIN SULFATE/DEXAMETH OPH OINTMENT 3.5 GM ONE
[2018-08-08] MEDS: CYCLOPENTOLATE 0.2%/PHENYLEPHRINE 1% OPH SOLN 2 ML OD PRN ×3 (11:03→11:23)
[2018-08-08] MEDS: BESIFLOXACIN HCL 0.6% OPH SUSP 5 ML BOTTLE OD PRN ×3 (11:03→11:49)
[2018-08-08] MEDS: TROPICAMIDE 1% OPH SOLN 3 ML OD PRN ×3 (11:03→11:23)
[2018-08-08] MEDS: TETRACAINE HCL 0.5% OPH SOLN 0.6 ML DROPERETTE OD PRN ×3 (11:04→11:35)
[2018-08-08] MEDS ORDERED: MIDAZOLAM 2 MG/2 ML INJ ONE (11:07)
== END 2018-08-08 12:47 | disposition home or self-care (01) ==
LOC: SC 09:59
PROVIDERS: ATTEND Ophthalmology
DX: H25.11 Age-related nuclear cataract, right eye (principal); Z98.41 Cataract extraction status, right eye; I25.10 Atherosclerotic heart disease of native coronary artery without angina pectoris; E11.9 Type 2 diabetes mellitus without complications; I10 Essential (primary) hypertension; E03.9 Hypothyroidism, unspecified; E78.00 Pure hypercholesterolemia, unspecified; Z79.899 Other long term (current) drug therapy; Z79.1 Long term (current) use of non-steroidal anti-inflammatories (NSAID)
CPT/HCPCS: 66984; 82962; V2632; J2250; J3490 ×3; A9270; J0171

== ENCOUNTER → 2018-09-06 | Outpatient (CLI) | payer MEDICARE, MEDICAID ==
[2018-09-06 10:10] LABS: ABSOLUTE BASOPHILS # (AUTO) 0.1 10^3/uL (0.0-0.2); ABSOLUTE EOSINOPHILS # (AUTO) 0.2 10^3/uL (0.0-0.6); ABSOLUTE LYMPHOCYTES (AUTO) 1.8 10^3/uL (0.5-4.7); ABSOLUTE MONOCYTES (AUTO) 0.6 10^3/uL (0.1-1.4); ABSOLUTE NEUT (AUTO) 5.2 10^3/uL (1.7-8.2); BASOPHILS % (AUTO) 0.6 % (0-2); HEMOGLOBIN 11.9 g/dL (12.0-15.5); LYMPHOCYTES % (AUTO) 23.3 % (13-45); MEAN CORPUSCULAR HEMOGLOBIN 31.6 pg (27.0-33.4); MEAN CORPUSCULAR VOLUME 96 fl (80-97); MONOCYTES % (AUTO) 7.9 % (3-13); PLATELET COUNT 173 10^3/uL (150-450); RED BLOOD COUNT 3.76 10^6/uL (3.72-5.28); RED CELL DISTRIBUTION WIDTH 14.8 % (11.5-14.0); SEGMENTED NEUTROPHILS % (AUTO) 66.2 % (42-78); TOTAL CELLS COUNTED % (AUTO) 100 %; WHITE BLOOD COUNT 7.8 10^3/uL (4.0-10.5)
[2018-09-06 10:30] LABS: ANION GAP 10 (5-19); BLOOD UREA NITROGEN 28 mg/dL (7-20); CALCIUM 8.7 mg/dL (8.4-10.2); CARBON DIOXIDE 23 mmol/L (22-30); CHLORIDE 109 mmol/L (98-107); GLUCOSE 130 mg/dL (75-110); PHOSPHORUS 2.3 mg/dL (2.5-4.5); POTASSIUM 3.5 mmol/L (3.6-5.0); SODIUM 142.2 mmol/L (137-145)
== END ==
LOC: LAB 09:40
PROVIDERS: ATTEND Internal Medicine Nephrology
DX: E11.22 Type 2 diabetes mellitus with diabetic chronic kidney disease (principal); N18.3 Chronic kidney disease, stage 3 (moderate); E55.9 Vitamin D deficiency, unspecified
CPT/HCPCS: 36415; 80069; 82306; 82728; 83540; 83550; 83970; 85025

== ENCOUNTER 2018-10-26 16:56 | Emergency (ER) | payer MEDICARE, MEDICAID ==
[2018-10-26 17:04] VITALS: BP 115/77
--- NOTE | 2018-10-26 17:44 | ER Document Report ---
Addendum entered and electronically signed by GREGG PONCE NP 10/26/18 18:23: Doctor's Note Notes: 10/26/18 18:21 This note is on the wrong patient. I have written the correct note on this patient. Original Note: ED Medical Screen (RME) - General Chief Complaint: Abnormal Lab Results Stated Complaint: ABNORMAL LABS Time Seen by Provider: 10/26/18 17:41 Primary Care Provider: TENISHA RIVAS MD [Primary Care Provider] - Follow up as needed Mode of Arrival: Ambulatory Information source: Patient Notes: 68-year-old male presented to ED for complaint of pain to the left bicep and shoulder. He states he had a DVT to the left elbow on the . He states they started him on Xarelto. He states the pain is no longer in his elbow but is now in his bicep and shoulder. I did speak with Dr. Beasley she recommended getting a Doppler of the upper arm. He states he has a follow-up appointment with his primary care on October 30. I have greeted and performed a rapid initial assessment of this patient. A comprehensive ED assessment and evaluation of the patient, analysis of test results and completion of medical decision making process will be conducted by an additional ED providers. Dictation of this chart was performed using voice recognition software; therefore, there may be some unintended grammatical errors. TRAVEL OUTSIDE OF THE [place] IN LAST 30 DAYS: No - Related Data Allergies/Adverse Reactions: Beta-Blockers (Beta-Adrenergic Bloc Allergy (Verified 10/26/18 17:02) Iodinated Contrast- Oral and IV Dye [IV Dye, Iodine Containing] Allergy (Verified 10/26/18 17:02) Past Medical History - Past Medical History Cardiac Medical History: Reports: Hx Coronary Artery Disease, Hx Heart Attack, Hx Hypercholesterolemia, Hx Hypertension Pulmonary Medical History: Reports: Hx Asthma Neurological Medical History: Denies: Hx Cerebrovascular Accident, Hx Seizures Endocrine Medical History: Reports: Hx Diabetes Mellitus Type 2 Renal/ Medical History: Denies: Hx Peritoneal Dialysis GI Medical History: Reports: Hx Hiatal Hernia, Hx Ulcer. Denies: Hx Hepatitis Musculoskeltal Medical History: Reports Hx Gout Psychiatric Medical History: Reports: Hx Depression Infectious Medical History: Denies: Hx Hepatitis Past Surgical History: Reports: Hx Cardiac Catheterization, Hx Cardiac Surgery - stents. Denies: Hx Mastectomy, Hx Open Heart Surgery, Hx Pacemaker - Immunizations Hx Diphtheria, Pertussis, Tetanus Vaccination: Yes Physical Exam - Vital signs Vitals: Temp Pulse Resp BP Pulse Ox 97.8 F 83 18 115/77 96 10/26/18 17:03 10/26/18 17:03 10/26/18 17:03 10/26/18 17:03 10/26/18 17:03 Course - Vital Signs Vital signs: Temp Pulse Resp BP Pulse Ox 97.8 F 83 18 115/77 96 10/26/18 17:03 10/26/18 17:03 10/26/18 17:03 10/26/18 17:03 10/26/18 17:03 Doctor's Discharge - Discharge Referrals: TENISHA RIVAS MD [Primary Care Provider] - Follow up as needed
--- NOTE | 2018-10-26 18:21 | ER Document Report ---
ED Medical Screen (RME) - General Chief Complaint: Abnormal Lab Results Stated Complaint: ABNORMAL LABS Time Seen by Provider: 10/26/18 17:41 Primary Care Provider: TENISHA RIVAS MD [Primary Care Provider] - Follow up as needed Mode of Arrival: Ambulatory Information source: Patient Notes: 68-year-old female presents to ED for complaint of abnormal labs. She states she saw Dr. Castorena who saw blood yesterday and then canceled her stent because of kidney failure. She states she has lupus she does not have kidney failure and she is tired of people telling her she has kidney failure. She states she is refused infusions by Dr. Mendoza and has refused dialysis back Dr. Mendoza. She states after she gets her labs she is going to go home because she is not waiting around for her results. She states that her doctor told her to come to the emergency room right away or she would be by morning from her kidney failure but she refuses day after she gets her blood drawn. I have greeted and performed a rapid initial assessment of this patient. A comprehensive ED assessment and evaluation of the patient, analysis of test results and completion of medical decision making process will be conducted by an additional ED providers. Dictation of this chart was performed using voice recognition software; therefore, there may be some unintended grammatical errors. TRAVEL OUTSIDE OF THE [place] IN LAST 30 DAYS: No - Related Data Allergies/Adverse Reactions: Beta-Blockers (Beta-Adrenergic Bloc Allergy (Verified 10/26/18 17:02) Iodinated Contrast- Oral and IV Dye [IV Dye, Iodine Containing] Allergy (Verified 10/26/18 17:02) Past Medical History - Past Medical History Cardiac Medical History: Reports: Hx Coronary Artery Disease, Hx Heart Attack, Hx Hypercholesterolemia, Hx Hypertension Pulmonary Medical History: Reports: Hx Asthma Neurological Medical History: Denies: Hx Cerebrovascular Accident, Hx Seizures Endocrine Medical History: Reports: Hx Diabetes Mellitus Type 2 Renal/ Medical History: Denies: Hx Peritoneal Dialysis GI Medical History: Reports: Hx Hiatal Hernia, Hx Ulcer. Denies: Hx Hepatitis Musculoskeltal Medical History: Reports Hx Gout Psychiatric Medical History: Reports: Hx Depression Infectious Medical History: Denies: Hx Hepatitis Past Surgical History: Reports: Hx Cardiac Catheterization, Hx Cardiac Surgery - stents. Denies: Hx Mastectomy, Hx Open Heart Surgery, Hx Pacemaker - Immunizations Hx Diphtheria, Pertussis, Tetanus Vaccination: Yes Physical Exam - Vital signs Vitals: Temp Pulse Resp BP Pulse Ox 97.8 F 83 18 115/77 96 10/26/18 17:03 10/26/18 17:03 10/26/18 17:03 10/26/18 17:03 10/26/18 17:03 Course - Vital Signs Vital signs: Temp Pulse Resp BP Pulse Ox 97.8 F 83 18 115/77 96 10/26/18 17:03 10/26/18 17:03 10/26/18 17:03 10/26/18 17:03 10/26/18 17:03 Doctor's Discharge - Discharge Referrals: TENISHA RIVAS MD [Primary Care Provider] - Follow up as needed
[2018-10-26 18:50] LABS: ABSOLUTE BASOPHILS # (AUTO) 0.1 10^3/uL (0.0-0.2); ABSOLUTE EOSINOPHILS # (AUTO) 0.2 10^3/uL (0.0-0.6); ABSOLUTE LYMPHOCYTES (AUTO) 1.8 10^3/uL (0.5-4.7); ABSOLUTE MONOCYTES (AUTO) 0.6 10^3/uL (0.1-1.4); ABSOLUTE NEUT (AUTO) 5.3 10^3/uL (1.7-8.2); BASOPHILS % (AUTO) 0.9 % (0-2); EOSINOPHILS % (AUTO) 2.5 % (0-6); HEMATOCRIT 40.4 % (36.0-47.0); HEMOGLOBIN 13.6 g/dL (12.0-15.5); LYMPHOCYTES % (AUTO) 22.6 % (13-45); MEAN CORPUSCULAR HEMOGLOBIN 32.3 pg (27.0-33.4); MEAN CORPUSCULAR HGB CONC 33.7 g/dL (32.0-36.0); MEAN CORPUSCULAR VOLUME 96 fl (80-97); MONOCYTES % (AUTO) 7.8 % (3-13); PLATELET COUNT 222 10^3/uL (150-450); RED BLOOD COUNT 4.21 10^6/uL (3.72-5.28); RED CELL DISTRIBUTION WIDTH 15.1 % (11.5-14.0); SEGMENTED NEUTROPHILS % (AUTO) 66.2 % (42-78); TOTAL CELLS COUNTED % (AUTO) 100 %
[2018-10-26 19:06] LABS: ALBUMIN 5.4 g/dL (3.5-5.0); ALKALINE PHOSPHATASE 89 U/L (38-126); ANION GAP 19 (5-19); ASPARTATE AMINO TRANSFERASE 48 U/L (14-36); BILIRUBIN,DIRECT 0.4 mg/dL (0.0-0.4); BILIRUBIN,TOTAL 0.9 mg/dL (0.2-1.3); BLOOD UREA NITROGEN 53 mg/dL (7-20); CALCIUM 9.5 mg/dL (8.4-10.2); CARBON DIOXIDE 17 mmol/L (22-30); CHLORIDE 99 mmol/L (98-107); CREATINE KINASE 179 U/L (30-135); GLUCOSE 142 mg/dL (75-110); POTASSIUM 4.1 mmol/L (3.6-5.0); TOTAL PROTEIN 8.4 g/dL (6.3-8.2)
== END 2018-10-27 05:23 | disposition left against medical advice (07) ==
LOC: ER 16:56
DX: N19 Unspecified kidney failure (principal); I10 Essential (primary) hypertension; I25.10 Atherosclerotic heart disease of native coronary artery without angina pectoris; I25.2 Old myocardial infarction; J45.909 Unspecified asthma, uncomplicated; E11.9 Type 2 diabetes mellitus without complications; Z95.5 Presence of coronary angioplasty implant and graft; Z88.8 Allergy status to other drugs, medicaments and biological substances; Z91.041 Radiographic dye allergy status; Z53.20 Procedure and treatment not carried out because of patient's decision for unspecified reasons
CPT/HCPCS: 36415; 80053; 82550; 85025; 99281

== ENCOUNTER → 2018-11-05 | Outpatient (CLI) | payer MEDICARE, MEDICAID ==
[2018-11-05 10:56] LABS: ABSOLUTE BASOPHILS # (AUTO) 0.1 10^3/uL (0.0-0.2); ABSOLUTE EOSINOPHILS # (AUTO) 0.2 10^3/uL (0.0-0.6); ABSOLUTE LYMPHOCYTES (AUTO) 2.1 10^3/uL (0.5-4.7); ABSOLUTE MONOCYTES (AUTO) 0.7 10^3/uL (0.1-1.4); ABSOLUTE NEUT (AUTO) 6.2 10^3/uL (1.7-8.2); BASOPHILS % (AUTO) 0.8 % (0-2); EOSINOPHILS % (AUTO) 2.5 % (0-6); HEMATOCRIT 33.9 % (36.0-47.0); HEMOGLOBIN 11.3 g/dL (12.0-15.5); LYMPHOCYTES % (AUTO) 22.8 % (13-45); MEAN CORPUSCULAR HGB CONC 33.4 g/dL (32.0-36.0); MEAN CORPUSCULAR VOLUME 96 fl (80-97); MONOCYTES % (AUTO) 7.7 % (3-13); PLATELET COUNT 194 10^3/uL (150-450); RED BLOOD COUNT 3.54 10^6/uL (3.72-5.28); RED CELL DISTRIBUTION WIDTH 15.2 % (11.5-14.0); SEGMENTED NEUTROPHILS % (AUTO) 66.2 % (42-78); TOTAL CELLS COUNTED % (AUTO) 100 %; WHITE BLOOD COUNT 9.4 10^3/uL (4.0-10.5)
[2018-11-05 11:12] LABS: ALBUMIN 4.4 g/dL (3.5-5.0); ANION GAP 10 (5-19); BLOOD UREA NITROGEN 35 mg/dL (7-20); CARBON DIOXIDE 26 mmol/L (22-30); CHLORIDE 102 mmol/L (98-107); GLUCOSE 105 mg/dL (75-110); IRON(TIBC) 117.8 ug/dL (37-170); PHOSPHORUS 4.3 mg/dL (2.5-4.5); POTASSIUM 4.9 mmol/L (3.6-5.0)
[2018-11-05 13:03] LABS: ANION GAP 10 (5-19); BLOOD UREA NITROGEN 36 mg/dL (7-20); CALCIUM 8.8 mg/dL (8.4-10.2); CARBON DIOXIDE 25 mmol/L (22-30); CHLORIDE 102 mmol/L (98-107); GLUCOSE 105 mg/dL (75-110); POTASSIUM 4.9 mmol/L (3.6-5.0)
== END ==
LOC: OD 10:10
PROVIDERS: ATTEND Internal Medicine Nephrology
DX: E11.22 Type 2 diabetes mellitus with diabetic chronic kidney disease (principal); N18.3 Chronic kidney disease, stage 3 (moderate); E55.9 Vitamin D deficiency, unspecified
CPT/HCPCS: 36415; 80048; 80069; 82306; 82728; 83540; 83550; 83970; 85025

== ENCOUNTER 2019-01-10 17:28 | Emergency (ER) | payer MEDICARE, MEDICAID ==
[2019-01-10 18:10] LABS: ABSOLUTE BASOPHILS # (AUTO) 0.1 10^3/uL (0.0-0.2); ABSOLUTE LYMPHOCYTES (AUTO) 1.2 10^3/uL (0.5-4.7); ABSOLUTE MONOCYTES (AUTO) 0.5 10^3/uL (0.1-1.4); ABSOLUTE NEUT (AUTO) 9.2 10^3/uL (1.7-8.2); BASOPHILS % (AUTO) 0.5 % (0-2); EOSINOPHILS % (AUTO) 0.3 % (0-6); HEMATOCRIT 34.4 % (36.0-47.0); HEMOGLOBIN 11.2 g/dL (12.0-15.5); MEAN CORPUSCULAR HEMOGLOBIN 31.5 pg (27.0-33.4); MEAN CORPUSCULAR HGB CONC 32.7 g/dL (32.0-36.0); MEAN CORPUSCULAR VOLUME 97 fl (80-97); MONOCYTES % (AUTO) 4.4 % (3-13); PLATELET COUNT 196 10^3/uL (150-450); RED BLOOD COUNT 3.57 10^6/uL (3.72-5.28); RED CELL DISTRIBUTION WIDTH 14.2 % (11.5-14.0); SEGMENTED NEUTROPHILS % (AUTO) 83.8 % (42-78); TOTAL CELLS COUNTED % (AUTO) 100 %
[2019-01-10 18:33] LABS: ALBUMIN 4.1 g/dL (3.5-5.0); ALKALINE PHOSPHATASE 70 U/L (38-126); ANION GAP 10 (5-19); ASPARTATE AMINO TRANSFERASE 40 U/L (14-36); BILIRUBIN,DIRECT 0.1 mg/dL (0.0-0.4); BILIRUBIN,TOTAL 0.3 mg/dL (0.2-1.3); BLOOD UREA NITROGEN 35 mg/dL (7-20); CALCIUM 9.1 mg/dL (8.4-10.2); CARBON DIOXIDE 24 mmol/L (22-30); CHLORIDE 103 mmol/L (98-107); GLUCOSE 172 mg/dL (75-110); POTASSIUM 5.2 mmol/L (3.6-5.0); TOTAL PROTEIN 6.7 g/dL (6.3-8.2)
[2019-01-10 18:34] LABS: ALCOHOL < 10 mg/dL (NONE DETECTED)
[2019-01-10] MEDS ORDERED: NORMAL SALINE 1000 ML 1,000 ML IV ONE (19:41)
--- NOTE | 2019-01-10 19:42 | ER Document Report ---
ED General - General Chief Complaint: Diarrhea Stated Complaint: ALTERED MENTED STATUS Time Seen by Provider: 01/10/19 19:27 Primary Care Provider: MUSA ZUNIGA MD [Primary Care Provider] - Follow up in 3-5 days Notes: Patient is a 68-year-old female that presents to the emergency department for chief complaint of generalized weakness, and altered mental status. Patient was brought to the emergency department by EMS, she was found to be hypoglycemic at 54 upon arrival to the home, and was lightly altered at the time, she is given oral glucagon, her glucose did come up and at this time on my evaluation she seems to be at her baseline, her son states that she seems to be at her normal mental baseline as well. She states she is felt more weak and had decreased appetite recently, although she continues to take her normal Lantus dosing of insulin as well as her sliding scale Humalog. She denies having any issues urinating, denies any dysuria, hematuria, lightheadedness, dizziness or syncope. Denies having any chest pain, shortness of breath or difficulty breathing. Denies any abdominal pain as well. At this time she is feeling better than she did earlier prior to receiving the oral glucagon. Past Medical History: Chronic kidney disease, diabetes mellitus, hypertension Past Surgical History: PCI with stenting Social History: Denies current tobacco, alcohol or drug use. Family History: Reviewed and noncontributory for presenting illness Allergies: Reviewed, see documented allergy list. REVIEW OF SYSTEMS: Other than noted above, the 12 point review of systems was reviewed with the patient and were negative, all pertinent findings are included in the HPI. PHYSICAL EXAMINATION: Vital signs reviewed, nursing noted reviewed. GENERAL: Elderly female, no acute distress HEAD: Atraumatic, normocephalic. EYES: Eyes appear normal, extraocular movements intact, sclera anicteric, conju nctiva are normal. ENT: nares patent, oropharynx clear without exudates. Moist mucous membranes. NECK: Normal range of motion, supple without lymphadenopathy LUNGS: Breath sounds clear to auscultation bilaterally and equal. No wheezes rales or rhonchi. HEART: Regular rate and rhythm without murmurs ABDOMEN: Soft, nontender, normoactive bowel sounds. No rebound, guarding, or rigidity. No masses appreciated. EXTREMITIES: Nontender, good range of motion, no pitting or edema. NEUROLOGICAL: No focal neurological deficits. Moves all extremities spontaneously Motor and sensory grossly intact on exam. PSYCH: Normal mood, normal affect. SKIN: Warm, Dry, normal turgor, no rashes or lesions noted on exposed skin TRAVEL OUTSIDE OF THE [place] IN LAST 30 DAYS: No - Related Data Allergies/Adverse Reactions: Beta-Blockers (Beta-Adrenergic Bloc Allergy (Verified 10/26/18 17:02) Iodinated Contrast Media [IV Dye, Iodine Containing] Allergy (Verified 10/26/18 17:02) Past Medical History - Social History Smoking Status: Former Smoker Family History: None Patient has suicidal ideation: No Patient has homicidal ideation: No - Past Medical History Cardiac Medical History: Reports: Hx Coronary Artery Disease, Hx Heart Attack, Hx Hypercholesterolemia, Hx Hypertension Pulmonary Medical History: Reports: Hx Asthma Neurological Medical History: Denies: Hx Cerebrovascular Accident, Hx Seizures Endocrine Medical History: Reports: Hx Diabetes Mellitus Type 2 Renal/ Medical History: Denies: Hx Peritoneal Dialysis GI Medical History: Reports: Hx Hiatal Hernia, Hx Ulcer. Denies: Hx Hepatitis Musculoskeletal Medical History: Reports Hx Gout Psychiatric Medical History: Reports: Hx Depression Infectious Medical History: Denies: Hx Hepatitis Past Surgical History: Reports: Hx Cardiac Catheterization, Hx Cardiac Surgery - stents. Denies: Hx Mastectomy, Hx Open Heart Surgery, Hx Pacemaker - Immunizations Hx Diphtheria, Pertussis, Tetanus Vaccination: Yes Physical Exam - Vital signs Vitals: Resp Pulse Ox 16 99 01/10/19 17:32 01/10/19 17:32 Course - Re-evaluation Re-evalutation: Patient seen and examined vital signs reviewed. Laboratory data and/or imaging were ordered as appropriate for the patient's presenting symptoms and complaint, with consideration of any critical or life threatening conditions that may be associated with their obtained history and exam as noted above. Patient was treated with IV fluids Results were reviewed when available and demonstrated baseline renal function, was demonstrated, with a creatinine of 1.8, last time was 2.0, does not seem to be any worsened. Her glucose remained higher. And she was feeling better after receiving IV fluids, her potassium was a little bit elevated at 5.2, but not significantly high, and she received fluids, do not think she needs any further treatment at this time. The patient was re-evaluated and was stable Evaluation was most consistent with hypoglycemia, I advised the patient decreasing her Lantus to 22 units daily, and to follow-up with her primary care physician to discuss further. Results were discussed with the patient at this point, after careful consideration I feel that that patient can be discharged from the emergency de partment, the patient was educated treatments and reasons to return to the emergency department based on their presumed diagnosis as noted above, they were advised to followup with a primary care physician in 2-3 days. Patient was agreeable to plan of care. *Note is created using voice recognition software and may contain spelling, syntax or grammatical errors. Laboratory 01/10/19 01/10/19 01/10/19 17:44 17:49 17:49 WBC 11.0 H RBC 3.57 L Hgb 11.2 L Hct 34.4 L MCV 97 MCH 31.5 MCHC 32.7 RDW 14.2 H Plt Count 196 Lymph % (Auto) 11.0 L Starke % (Auto) 4.4 Eos % (Auto) 0.3 Baso % (Auto) 0.5 Absolute Neuts (auto) 9.2 H Absolute Lymphs (auto) 1.2 Absolute Monos (auto) 0.5 Absolute Eos (auto) 0.0 Absolute Basos (auto) 0.1 Seg Neutrophils % 83.8 H Sodium 137.3 Potassium 5.2 H Chloride 103 Carbon Dioxide 24 Anion Gap 10 BUN 35 H Creatinine 1.80 H Est GFR ( Amer) 34 L Est GFR (MDRD) Non-Af 28 L Glucose 172 H POC Glucose 160 H Calcium 9.1 Magnesium 1.9 Total Bilirubin 0.3 Direct Bilirubin 0.1 Neonat Total Bilirubin Not Reportable Neonat Direct Bilirubin Not Reportable Neonat Indirect Bili Not Reportable AST 40 H ALT 35 Alkaline Phosphatase 70 Total Protein 6.7 Albumin 4.1 Urine Color Urine Appearance Urine pH Ur Specific [place] Urine Protein Urine Glucose (UA) Urine Ketones Urine Blood Urine Nitrite Urine Bilirubin Urine Urobilinogen Ur Leukocyte Esterase Urine WBC (Auto) Urine RBC (Auto) Urine Mucus (Auto) Urine Ascorbic Acid Urine Opiates Screen Urine Methadone Screen Ur Barbiturates Screen Ur Phencyclidine Scrn Ur Amphetamines Screen U Benzodiazepines Scrn Urine Cocaine Screen U Marijuana (THC) Screen Serum Alcohol < 10 01/10/19 01/10/19 19:38 19:38 WBC RBC Hgb Hct MCV MCH MCHC RDW Plt Count Lymph % (Auto) Starke % (Auto) Eos % (Auto) Baso % (Auto) Absolute Neuts (auto) Absolute Lymphs (auto) Absolute Monos (auto) Absolute Eos (auto) Absolute Basos (auto) Seg Neutrophils % Sodium Potassium Chloride Carbon Dioxide Anion Gap BUN Creatinine Est GFR ( Amer) Est GFR (MDRD) Non-Af Glucose POC Glucose Calcium Magnesium Total Bilirubin Direct Bilirubin Neonat Total Bilirubin Neonat Direct Bilirubin Neonat Indirect Bili AST ALT Alkaline Phosphatase Total Protein Albumin Urine Color ZANE Urine Appearance CLEAR Urine pH 5.0 Ur Specific [place] 1.019 Urine Protein NEGATIVE Urine Glucose (UA) NEGATIVE Urine Ketones NEGATIVE Urine Blood NEGATIVE Urine Nitrite NEGATIVE Urine Bilirubin NEGATIVE Urine Urobilinogen NEGATIVE Ur Leukocyte Esterase NEGATIVE Urine WBC (Auto) 1 Urine RBC (Auto) 1 Urine Mucus (Auto) RARE Urine Ascorbic Acid 40 H Urine Opiates Screen NEGATIVE Urine Methadone Screen NEGATIVE Ur Barbiturates Screen NEGATIVE Ur Phencyclidine Scrn NEGATIVE Ur Amphetamines Screen NEGATIVE U Benzodiazepines Scrn UNCONFIRMED POSITIVE Urine Cocaine Screen NEGATIVE U Marijuana (THC) Screen NEGATIVE Serum Alcohol - Vital Signs Vital signs: Temp Pulse Resp BP Pulse Ox 97.8 F 18 119/68 98 01/10/19 22:01 01/10/19 22:01 01/10/19 22:01 01/10/19 22:01 - Laboratory Result Diagrams: 01/10/19 17:49 01/10/19 17:49 Laboratory results interpreted by me: 01/10/19 01/10/19 01/10/19 17:44 17:49 17:49 WBC 11.0 H RBC 3.57 L Hgb 11.2 L Hct 34.4 L RDW 14.2 H Lymph % (Auto) 11.0 L Absolute Neuts (auto) 9.2 H Seg Neutrophils % 83.8 H Potassium 5.2 H BUN 35 H Creatinine 1.80 H Est GFR ( Amer) 34 L Est GFR (MDRD) Non-Af 28 L Glucose 172 H POC Glucose 160 H AST 40 H Urine Ascorbic Acid 01/10/19 19:38 WBC RBC Hgb Hct RDW Lymph % (Auto) Absolute Neuts (auto) Seg Neutrophils % Potassium BUN Creatinine Est GFR ( Amer) Est GFR (MDRD) Non-Af Glucose POC Glucose AST Urine Ascorbic Acid 40 H - EKG Interpretation by Me Additional EKG results interpreted by me: EKG demonstrates normal sinus rhythm with a ventricular rate of 72 bpm, left axis deviation, normal intervals, no evidence of acute ischemia on this EKG. Compared with prior EKG from 10/17/2017, without significant change. Discharge - Discharge Clinical Impression: Hypoglycemia Diarrhea Qualifiers: Diarrhea type: unspecified type Qualified Code(s): R19.7 - Diarrhea, unspecified Condition: Stable Disposition: HOME, SELF-CARE Instructions: Hypoglycemia ([facility]) Additional Instructions: I recommend that you decrease her Lantus dosing to 22 units, to have more of an appetite, please follow-up with your primary care physician or Dr. Zuniga, call for an appointment tomorrow. Referrals: MUSA ZUNIGA MD [Primary Care Provider] - Follow up in 3-5 days
[2019-01-10 20:16] LABS: APPEARANCE,URINE CLEAR; BILIRUBIN,URINE NEGATIVE (NEGATIVE); COLOR,URINE AMBER; GLUCOSE, URINE NEGATIVE (NEGATIVE); KETONES,URINE NEGATIVE (NEGATIVE); LEUKOCYTE ESTERASE,URINE NEGATIVE (NEGATIVE); NITRITE,URINE NEGATIVE (NEGATIVE); PROTEIN,URINE NEGATIVE (NEGATIVE); URINE SPECIFIC GRAVITY 1.019; UROBILINOGEN,URINE NEGATIVE mg/dL (<2.0)
--- NOTE | 2019-01-10 20:18 | EKG REPORT ---
SEVERITY:- NORMAL ECG - SINUS RHYTHM : Confirmed by: Moira Feliciano MD 10-Jan-2019 20:17:11
[2019-01-10 20:29] LABS: URINE AMPHETAMINES SCREEN NEGATIVE; URINE BARBITURATES SCREEN NEGATIVE; URINE BENZODIAZEPINES SCREEN UNCONFIRMED POSITIVE; URINE COCAINE SCREEN NEGATIVE; URINE MARIJUANA (THC) SCREEN NEGATIVE; URINE METHADONE SCREEN NEGATIVE; URINE PHENCYCLIDINE SCREEN NEGATIVE
[2019-01-10 22:12] VITALS: BP 119/68
== END 2019-01-10 22:12 | disposition home or self-care (01) ==
LOC: ER 17:28
DX: E11.649 Type 2 diabetes mellitus with hypoglycemia without coma (principal); R19.7 Diarrhea, unspecified; R41.82 Altered mental status, unspecified; R53.1 Weakness; E11.22 Type 2 diabetes mellitus with diabetic chronic kidney disease; I12.9 Hypertensive chronic kidney disease with stage 1 through stage 4 chronic kidney disease, or unspecified chronic kidney disease; N18.9 Chronic kidney disease, unspecified; I25.10 Atherosclerotic heart disease of native coronary artery without angina pectoris; I25.2 Old myocardial infarction; E78.00 Pure hypercholesterolemia, unspecified; Z79.4 Long term (current) use of insulin
CPT/HCPCS: 93005; 36415; 82962; 80307 ×2; 83735; 85025; 80053; 81001; 93010; J7030

== ENCOUNTER 2019-03-30 14:39 | Emergency (ER) | payer MEDICARE, MEDICAID ==
[2019-03-30] MEDS ORDERED: DEXTROSE 50%-WATER 25 GM/50 ML DISP.SYRIN IV ONE (14:51)
--- NOTE | 2019-03-30 15:28 | ER Document Report ---
ED General - General Chief Complaint: Altered Mental Status Stated Complaint: ALTERED MENTAL STATUS/LOC Time Seen by Provider: 03/30/19 14:58 Primary Care Provider: MUSA ZUNIGA MD [Primary Care Provider] - Follow up in 3-5 days Notes: 68-year-old female with history of diabetes on insulin presents with altered mental status. Patient was at the grocery store using her motorized wheelchair when she was found to be confused and diaphoretic. EMS reports initial BGL of 17. D10 25 g was given with improvement in blood glucose of 301. 500 cc of lactated Ringer's IV were also given. Patient became more responsive after the D10. Blood glucose was 104 upon arrival. Patient denies any chest pain, dyspnea, nausea/vomiting, abdominal pain, fever. TRAVEL OUTSIDE OF THE [place] IN LAST 30 DAYS: No - Related Data Allergies/Adverse Reactions: Beta-Blockers (Beta-Adrenergic Bloc Allergy (Verified 10/26/18 17:02) Iodinated Contrast Media [IV Dye, Iodine Containing] Allergy (Verified 10/26/18 17:02) Home Medications: Alprazolam, ASA, Azelastine, Calcitrol, Claritin, Fluticasone, Isosorbine, Levothyroxine, Lidocaine, Loperamide, Loratidine, Nitroglycerin, Denavir, Ranexa, Rosuvastatin, Sertraline, Vitamin D Past Medical History - Social History Smoking Status: Unknown if Ever Smoked Family History: None Patient has suicidal ideation: No Patient has homicidal ideation: No - Past Medical History Cardiac Medical History: Reports: Hx Coronary Artery Disease, Hx Heart Attack, Hx Hypercholesterolemia, Hx Hypertension Pulmonary Medical History: Reports: Hx Asthma Neurological Medical History: Denies: Hx Cerebrovascular Accident, Hx Seizures Endocrine Medical History: Reports: Hx Diabetes Mellitus Type 2 Renal/ Medical History: Reports: Hx End Stage Renal Disease. Denies: Hx Peritoneal Dialysis GI Medical History: Reports: Hx Hiatal Hernia, Hx Ulcer. Denies: Hx Hepatitis Musculoskeletal Medical History: Reports Hx Gout Psychiatric Medical History: Reports: Hx Depression Infectious Medical History: Denies: Hx Hepatitis Past Surgical History: Reports: Hx Cardiac Catheterization, Hx Cardiac Surgery - stents. Denies: Hx Mastectomy, Hx Open Heart Surgery, Hx Pacemaker - Immunizations Hx Diphtheria, Pertussis, Tetanus Vaccination: Yes Review of Systems - Review of Systems Notes: Constitutional: Negative for fever. HENT: Negative for sore throat. Eyes: Negative for visual changes. Cardiovascular: Negative for chest pain. Respiratory: Negative for shortness of breath. Gastrointestinal: Negative for abdominal pain, vomiting or diarrhea. Genitourinary: Negative for dysuria. Musculoskeletal: Negative for back pain. Skin: Negative for rash. Neurological: Negative for headaches, weakness or numbness. 10 point ROS negative except as marked above and in HPI. Physical Exam - Vital signs Vitals: Resp BP Pulse Ox 15 112/73 99 03/30/19 14:47 03/30/19 14:47 03/30/19 14:47 - Notes Notes: GENERAL: Well-appearing, well-nourished and in no acute distress. HEAD: Atraumatic, normocephalic. EYES: Pupils equal round and reactive to light, extraocular movements intact, sclera anicteric, conjunctiva are normal. NECK: Normal range of motion, supple without lymphadenopathy or JVD. LUNGS: Breath sounds clear to auscultation bilaterally and equal. No wheezes rales or rhonchi. HEART: Regular rate and rhythm without murmurs, rubs or gallops. ABDOMEN: Soft, nontender, normoactive bowel sounds. No guarding, no rebound. No masses appreciated. EXTREMITIES: Normal range of motion, no pitting or edema. No clubbing or cyanosis. NEUROLOGICAL: Cranial nerves II through XII grossly intact. Patient is arousable to verbal stimuli. PSYCH: Normal mood, normal affect. SKIN: Warm, Dry, normal turgor, no rashes or lesions noted. Course - Re-evaluation Re-evalutation: 03/30/19 68-year-old female presents with altered mental status and hypoglycemia. Patient has a history of diabetes on insulin. Patient was initially 17 and was given D10 25 g with improvement and BGL to 301 by EMS. Patient was also given 500 cc bolus of lactated Ringer's. Patient was 104 upon arrival to ER. Work-up initiated. Review of records reveals similar episode in December 2018 with a reassuring work-up. Patient is nontoxic, well-appearing. Patient is arousable to verbal stimuli at this time. Abdomen soft nontender. Lungs clear to auscultation bilaterally. Regular rate and rhythm. 03/30/19 15:44 Recheck of blood sugar - 65. D50 1 amp given by MALLORY. 03/30/19 16:[address] elevation and is unchanged from previous. 03/30/19 16:11 Blood sugar is 140 03/30/19 17:23 Blood sugar is now 81. Pt wants to go home. Discussed with attending, Dr. Bogdan Varela, who agrees with plan of care. Return precautions given as well as reminder to eat. All questions/concerns addressed prior to discharge. - Vital Signs Vital signs: Temp Pulse Resp BP Pulse Ox 97.1 F 14 119/69 100 03/30/19 15:18 03/30/19 17:01 03/30/19 17:01 03/30/19 17:01 - Laboratory Result Diagrams: 03/30/19 14:45 03/30/19 14:45 Laboratory results interpreted by me: 03/30/19 03/30/19 03/30/19 14:45 14:45 15:39 RBC 2.99 L Hgb 9.7 L Hct 29.2 L MCV 98 H RDW 14.7 H Chloride 111 H BUN 28 H Creatinine 1.83 H Est GFR ( Amer) 33 L Est GFR (MDRD) Non-Af 27 L Glucose 53 L POC Glucose 65 L Total Protein 6.0 L 03/30/19 16:08 RBC Hgb Hct MCV RDW Chloride BUN Creatinine Est GFR ( Amer) Est GFR (MDRD) Non-Af Glucose POC Glucose 140 H Total Protein Discharge - Discharge Clinical Impression: Hypoglycemia Condition: Stable Disposition: HOME, SELF-CARE Instructions: Hypoglycemia Diet ([facility]), Hypoglycemia ([facility]) Additional Instructions: Please follow-up with your primary care doctor in 2 to 3 days. Please make sure to eat. Your blood sugar was very low today. Return to ER for any worsening symptoms, including confusion, nausea/vomiting, abdominal pain, fever, chest pain, shortness of breath diarrhea constipation, or any other symptoms that are concerning to you. Referrals: MUSA ZUNIGA MD [Primary Care Provider] - Follow up in 3-5 days
[2019-03-30 15:38] LABS: ABSOLUTE EOSINOPHILS # (AUTO) 0.1 10^3/uL (0.0-0.6); ABSOLUTE MONOCYTES (AUTO) 0.6 10^3/uL (0.1-1.4); ABSOLUTE NEUT (AUTO) 5.4 10^3/uL (1.7-8.2); BASOPHILS % (AUTO) 0.4 % (0-2); EOSINOPHILS % (AUTO) 1.7 % (0-6); HEMATOCRIT 29.2 % (36.0-47.0); HEMOGLOBIN 9.7 g/dL (12.0-15.5); LYMPHOCYTES % (AUTO) 13.5 % (13-45); MEAN CORPUSCULAR HEMOGLOBIN 32.4 pg (27.0-33.4); MEAN CORPUSCULAR HGB CONC 33.1 g/dL (32.0-36.0); MEAN CORPUSCULAR VOLUME 98 fl (80-97); MONOCYTES % (AUTO) 7.9 % (3-13); PLATELET COUNT 153 10^3/uL (150-450); RED BLOOD COUNT 2.99 10^6/uL (3.72-5.28); RED CELL DISTRIBUTION WIDTH 14.7 % (11.5-14.0); SEGMENTED NEUTROPHILS % (AUTO) 76.5 % (42-78); TOTAL CELLS COUNTED % (AUTO) 100 %; WHITE BLOOD COUNT 7.1 10^3/uL (4.0-10.5)
[2019-03-30 15:49] LABS: ALBUMIN 3.6 g/dL (3.5-5.0); ALCOHOL < 10 mg/dL (NONE DETECTED); ALKALINE PHOSPHATASE 79 U/L (38-126); ANION GAP 9 (5-19); ASPARTATE AMINO TRANSFERASE 28 U/L (14-36); BILIRUBIN,DIRECT 0.2 mg/dL (0.0-0.4); BILIRUBIN,TOTAL 0.4 mg/dL (0.2-1.3); BLOOD UREA NITROGEN 28 mg/dL (7-20); CALCIUM 8.7 mg/dL (8.4-10.2); CARBON DIOXIDE 22 mmol/L (22-30); CHLORIDE 111 mmol/L (98-107); POTASSIUM 3.8 mmol/L (3.6-5.0)
[2019-03-30 15:50] LABS: GLUCOSE 53 mg/dL (75-110)
[2019-03-30 18:12] VITALS: BP 134/75
--- NOTE | 2019-03-31 20:44 | EKG REPORT ---
SEVERITY:- NORMAL ECG - SINUS RHYTHM : Confirmed by: Rufina Wade 31-Mar-2019 20:43:06
== END 2019-03-30 18:27 | disposition home or self-care (01) ==
LOC: ER 14:39
DX: E11.649 Type 2 diabetes mellitus with hypoglycemia without coma (principal); R41.82 Altered mental status, unspecified; R61 Generalized hyperhidrosis; Z79.4 Long term (current) use of insulin; Z79.899 Other long term (current) drug therapy; I25.10 Atherosclerotic heart disease of native coronary artery without angina pectoris; I25.2 Old myocardial infarction; I10 Essential (primary) hypertension; J45.909 Unspecified asthma, uncomplicated
CPT/HCPCS: 93005; 99285; 96374; 36415; 82962; 80307; 83735; 85025; 80053; 84484; 93010; J3490

== ENCOUNTER 2019-04-08 16:35 | Emergency (ER) | payer MEDICARE, MEDICAID ==
--- NOTE | 2019-04-08 17:46 | EKG REPORT ---
SEVERITY:- OTHERWISE NORMAL ECG - SINUS RHYTHM BORDERLINE LEFT AXIS DEVIATION : Confirmed by: Carlos Tim MD 08-Apr-2019 17:46:22
--- NOTE | 2019-04-08 17:54 | ER Document Report ---
ED Fall - General Chief Complaint: Fall Stated Complaint: HEAD PAIN Time Seen by Provider: 04/08/19 17:11 Primary Care Provider: MUSA ZUNIGA MD [ACTIVE STAFF] - Follow up as needed Mode of Arrival: Medic Information source: Patient Notes: 68-year-old woman presents to the emergency department with a history of a fall while in a shopping center parking lot. She uses a walker and apparently tipped forward falling onto the pavement hitting her head. She complains of pain in her head and pain in the neck. She denies loss of consciousness and denies any other associated injuries. TRAVEL OUTSIDE OF THE [place] IN LAST 30 DAYS: No - Related data Allergies/Adverse Reactions: Beta-Blockers (Beta-Adrenergic Bloc Allergy (Verified 10/26/18 17:02) Iodinated Contrast Media [IV Dye, Iodine Containing] Allergy (Verified 10/26/18 17:02) Home Medications: aspirin, insulin Past Medical History - Social History Smoking Status: Never Smoker Chew tobacco use (# tins/day): No Frequency of alcohol use: None Drug Abuse: None Family History: None Patient has suicidal ideation: No Patient has homicidal ideation: No - Past Medical History Cardiac Medical History: Reports: Hx Coronary Artery Disease, Hx Heart Attack, Hx Hypercholesterolemia, Hx Hypertension Pulmonary Medical History: Reports: Hx Asthma Neurological Medical History: Denies: Hx Cerebrovascular Accident, Hx Seizures Endocrine Medical History: Reports: Hx Diabetes Mellitus Type 2 Renal/ Medical History: Reports: Hx End Stage Renal Disease. Denies: Hx Peritoneal Dialysis GI Medical History: Reports: Hx Hiatal Hernia, Hx Ulcer. Denies: Hx Hepatitis Musculoskeletal Medical History: Reports Hx Gout Psychiatric Medical History: Reports: Hx Depression Infectious Medical History: Denies: Hx Hepatitis Past Surgical History: Reports: Hx Cardiac Catheterization, Hx Cardiac Surgery - stents. Denies: Hx Mastectomy, Hx Open Heart Surgery, Hx Pacemaker - Immunizations Hx Diphtheria, Pertussis, Tetanus Vaccination: Yes Review of Systems - Review of Systems Notes: Constitutional: Negative for fever. HENT: + Scalp injury, + scalp laceration Eyes: Negative for visual changes. Cardiovascular: Negative for chest pain. Respiratory: Negative for shortness of breath. Gastrointestinal: Negative for abdominal pain, vomiting or diarrhea. Genitourinary: Negative for dysuria. Musculoskeletal: Negative for back pain. Skin: Negative for rash. Neurological: Negative for headaches, weakness or numbness. 10 point ROS negative except as marked above and in HPI. Physical Exam - Vital signs Vitals: Pulse Ox 97 04/08/19 16:43 - Notes Notes: PHYSICAL EXAMINATION: Physical Exam: General: Well-nourished well-developed woman in no acute distress HEENT: Area of swelling in the left parieto-occipital region, superficial lacerations to the scalp, pupils equal round and reactive to light, MM moist,nares clear, Neck: + Tenderness in the cervical region, c-collar in place. Lungs: clear, no wheezing, no rales no rhonchi CVS: Regular rate and rhythm no murmur gallop or rub Abdomen: Soft active nontender, no masses, no hepatosplenomegaly Ext: No edema clubbing or cyanosis. Neuro: GCS 14, alert and responsive, moving all 4 extremities on command, cranial nerves intact. Skin: Intact no open lesions, no rash PSYCH: Normal mood, normal affect. Course - Re-evaluation Re-evalutation: 04/08/19 20:39 The patient had a CT scan of the head and neck performed, there is no acute findings on either study, the area of the injury to the scalp was repaired with Dermabond, a 1 cm laceration was noted superficial with mild active bleeding. 04/08/19 20:42 At the time of discharge the patient requested a dose of Imodium for diarrhea. She apparently has a chronic problem and is having diarrhea and the emergency department this time. 1 dose Imodium 4 mg is ordered. - Vital Signs Vital signs: Temp Pulse Resp BP Pulse Ox 97.9 F 77 15 126/82 H 96 04/08/19 16:45 04/08/19 16:44 04/08/19 19:01 04/08/19 19:01 04/08/19 19:01 - Laboratory Result Diagrams: 04/08/19 17:07 04/08/19 17:07 Laboratory results interpreted by me: 04/08/19 04/08/19 17:07 17:07 RBC 3.35 L Hgb 10.9 L Hct 32.3 L RDW 15.2 H Creatinine 1.49 H Est GFR ( Amer) 42 L Est GFR (MDRD) Non-Af 35 L Glucose 131 H - EKG Interpretation by Co EKG shows normal: Sinus rhythm - Rate of 75, no acute ST or T wave abnormalities noted. Procedures - Laceration/Wound Repair Head Time completed: 20:34 Wound length (cm): 1 Wound's Depth, Shape: Superficial Wound explored: Clean Wound Repaired With: Dermabond Layer Closure?: No Complications: No Discharge - Discharge Clinical Impression: Fall Contusion of scalp Qualifiers: Encounter type: initial encounter Qualified Code(s): S00.03XA - Contusion of scalp, initial encounter Laceration of occipital scalp Qualifiers: Encounter type: initial encounter Qualified Code(s): S01.01XA - Laceration without foreign body of scalp, initial encounter Condition: Good Disposition: HOME, SELF-CARE Instructions: Contusion ([facility]) Referrals: MUSA ZUNIGA MD [ACTIVE STAFF] - Follow up as needed
[2019-04-08 18:02] LABS: ABSOLUTE BASOPHILS # (AUTO) 0.1 10^3/uL (0.0-0.2); ABSOLUTE EOSINOPHILS # (AUTO) 0.2 10^3/uL (0.0-0.6); ABSOLUTE LYMPHOCYTES (AUTO) 1.8 10^3/uL (0.5-4.7); ABSOLUTE MONOCYTES (AUTO) 0.6 10^3/uL (0.1-1.4); ABSOLUTE NEUT (AUTO) 5.2 10^3/uL (1.7-8.2); BASOPHILS % (AUTO) 0.7 % (0-2); EOSINOPHILS % (AUTO) 2.9 % (0-6); HEMATOCRIT 32.3 % (36.0-47.0); HEMOGLOBIN 10.9 g/dL (12.0-15.5); LYMPHOCYTES % (AUTO) 22.4 % (13-45); MEAN CORPUSCULAR HEMOGLOBIN 32.4 pg (27.0-33.4); MEAN CORPUSCULAR HGB CONC 33.7 g/dL (32.0-36.0); MEAN CORPUSCULAR VOLUME 96 fl (80-97); MONOCYTES % (AUTO) 7.9 % (3-13); PLATELET COUNT 190 10^3/uL (150-450); RED BLOOD COUNT 3.35 10^6/uL (3.72-5.28); RED CELL DISTRIBUTION WIDTH 15.2 % (11.5-14.0); SEGMENTED NEUTROPHILS % (AUTO) 66.1 % (42-78); TOTAL CELLS COUNTED % (AUTO) 100 %; WHITE BLOOD COUNT 7.8 10^3/uL (4.0-10.5)
[2019-04-08 18:13] LABS: ANION GAP 8 (5-19); BLOOD UREA NITROGEN 19 mg/dL (7-20); CALCIUM 8.6 mg/dL (8.4-10.2); CARBON DIOXIDE 26 mmol/L (22-30); CHLORIDE 107 mmol/L (98-107); GLUCOSE 131 mg/dL (75-110); POTASSIUM 4.5 mmol/L (3.6-5.0)
--- NOTE | 2019-04-08 18:33 | RADIOLOGY REPORT (SQ) ---
EXAM DESCRIPTION: CT HEAD WITHOUT COMPLETED DATE/TIME: 04/08/2019 6:03 pm REASON FOR STUDY: head injury COMPARISON: 10/17/2017 TECHNIQUE: Axial images acquired through the brain without intravenous contrast. Images reviewed wi th bone, brain and subdural windows. Additional sagittal and coronal reconstructions were generated. Images stored on PACS. All CT scanners at this facility use dose modulation, iterative reconstruction, and/or weight based d osing when appropriate to reduce radiation dose to as low as reasonably achievable (ALARA). [facility]: Dose Right [facility]: CareDose [facility]: Dose Right [facility]: Teradose 4D [facility]: [employer]chemy [employer] RADIATION DOSE: mGy. LIMITATIONS: None. FINDINGS: VENTRICLES: Normal size and contour. CEREBRUM: No masses. No hemorrhage. No midline shift. No evidence for acute infarction. Normal gra y/white matter differentiation. No areas of low density in the white matter. CEREBELLUM: No masses. No hemorrhage. No alteration of density. No evidence for acute infarction. EXTRAAXIAL SPACES: No fluid collections. No masses. ORBITS AND GLOBE: No intra- or extraconal masses. Normal contour of globe without masses. CALVARIUM: No fracture. PARANASAL SINUSES: No fluid or mucosal thickening. SOFT TISSUES: Left posterior parietal scalp hematoma. OTHER: No other significant finding. IMPRESSION: Scalp hematoma. No acute intracranial imaging finding. EVIDENCE OF ACUTE STROKE: NO. COMMENT: Quality ID # [id number]: Final reports with documentation of one or more dose reduction techniques (e.g., Automated exposure control, adjustment of the mA and/or kV according to patient size, use of iterative reconstruction technique) TECHNICAL DOCUMENTATION: JOB ID: [id number] [employer]- All Rights Reserved Reading location - IP/workstation name: [email or web address]
--- NOTE | 2019-04-08 18:46 | RADIOLOGY REPORT (SQ) ---
EXAM DESCRIPTION: CT CERVICAL SPINE WITHOUT COMPLETED DATE/TIME: 04/08/2019 6:03 pm REASON FOR STUDY: fall COMPARISON: 05/07/2009 TECHNIQUE: Axial images acquired through the cervical spine without intravenous contrast. Images re viewed with lung, soft tissue and bone windows. Reconstructed coronal and sagittal MPR images review ed. Images stored on PACS. All CT scanners at this facility use dose modulation, iterative reconstruction, and/or weight based d osing when appropriate to reduce radiation dose to as low as reasonably achievable (ALARA). [facility]: Dose Right [facility]: CareDose [facility]: Dose Right [facility]: Teradose 4D [facility]: Smart Tasspass RADIATION DOSE: CT Rad equipment meets quality standard of care and radiation dose reduction techniq ues were employed. CTDIvol: 20.5 - 53.2 mGy. DLP: 1410 mGy-cm. mGy. LIMITATIONS: None. FINDINGS: ALIGNMENT: Anatomic. MINERALIZATION: Normal. VERTEBRAL BODIES: There is an oblique lucent line running through the anterior inferior corner of the C4 vertebra. The margins are corticated, suggesting this does not represent an acute fracture. Thi s is not seen on the prior study from 2009. DISCS: Disc spaces are narrowed from C3 to C7 with marginal osteophyte is most prominent at C3-4 and C4-5. FACETS, LATERAL MASSES, POSTERIOR ELEMENTS: No fractures. No dislocation. No acute findings. HARDWARE: None in the spine. VISUALIZED RIBS: No fractures. LUNG APICES AND SOFT TISSUES: No significant or acute findings. OTHER: No other significant finding. IMPRESSION: There is an oblique lucent line running through the anterior inferior corner of the C4 v ertebra seen the in the sagittal plane. This was not present in 2009. The margins appear corticated , suggesting that this does not represent an acute fracture. Correlate clinically. COMMENT: Pertinent findings on the imaging study reported as a CRITICAL RESULT to DIEGO DELGADO MD at18:40 on 04/08/2019. Category of Critical Result: Questionable cervical fracture, felt not to be acute. TECHNICAL DOCUMENTATION: JOB ID: [id number] Quality ID # [id number]: Final reports with documentation of one or more dose reduction techniques (e.g., Au tomated exposure control, adjustment of the mA and/or kV according to patient size, use of iterative reconstruction technique) 2010 [employer]- All Rights Reserved Reading location - IP/workstation name: [email or web address]
[2019-04-08] MEDS ORDERED: LOPERAMIDE HCL 2 MG CAPSULE PO ONE (20:37)
[2019-04-08 21:27] VITALS: BP 103/60
== END 2019-04-08 21:47 | disposition home or self-care (01) ==
LOC: ER 16:35
DX: S01.01XA Laceration without foreign body of scalp, initial encounter (principal); R51 Headache; M54.2 Cervicalgia; R19.7 Diarrhea, unspecified; W01.10XA Fall on same level from slipping, tripping and stumbling with subsequent striking against unspecified object, initial encounter; I25.10 Atherosclerotic heart disease of native coronary artery without angina pectoris; I25.2 Old myocardial infarction; E78.00 Pure hypercholesterolemia, unspecified; E11.22 Type 2 diabetes mellitus with diabetic chronic kidney disease; I12.0 Hypertensive chronic kidney disease with stage 5 chronic kidney disease or end stage renal disease; N18.6 End stage renal disease
CPT/HCPCS: 93005; 99284; 36415; 85025; 80048; 70450; 72125; 93010; 12001; A9270

== ENCOUNTER 2019-06-04 16:14 | Emergency (ER) | payer MEDICARE, MEDICAID ==
[2019-06-04 16:32] VITALS: BP 133/67
--- NOTE | 2019-06-04 16:36 | ER Document Report ---
ED Medical Screen (RME) - General Chief Complaint: Fall Stated Complaint: FALL - KNEE PAIN Time Seen by Provider: 06/04/19 16:32 Primary Care Provider: TENISHA RIVAS MD [Primary Care Provider] - Follow up as needed Mode of Arrival: Ambulatory Information source: Patient Notes: 68-year-old female presented to ED for complaint of fall this morning. She states that the escrow clerk came to the door and after that she needs something. She wanted to know why he came to the door and he told her it did not matter. She states that she had fallen this morning and he said that he was going to call 911 for the ambulance. She states she did fall on the floor on a carpeted floor with no padding. She does have pain and swelling to the right knee from her fall this morning. She is alert oriented respirations regular nonlabored speaking in full sentences. She does live at home alone with her cats. I have greeted and performed a rapid initial assessment of this patient. A comprehensive ED assessment and evaluation of the patient, analysis of test results and completion of medical decision making process will be conducted by an additional ED providers. TRAVEL OUTSIDE OF THE [place] IN LAST 30 DAYS: No - Related Data Allergies/Adverse Reactions: Beta-Blockers (Beta-Adrenergic Bloc Allergy (Verified 10/26/18 17:02) Iodinated Contrast Media [IV Dye, Iodine Containing] Allergy (Verified 10/26/18 17:02) Past Medical History - Past Medical History Cardiac Medical History: Reports: Hx Coronary Artery Disease, Hx Heart Attack, Hx Hypercholesterolemia, Hx Hypertension Pulmonary Medical History: Reports: Hx Asthma Neurological Medical History: Denies: Hx Cerebrovascular Accident, Hx Seizures Endocrine Medical History: Reports: Hx Diabetes Mellitus Type 2 Renal/ Medical History: Reports: Hx End Stage Renal Disease. Denies: Hx Peritoneal Dialysis GI Medical History: Reports: Hx Hiatal Hernia, Hx Ulcer. Denies: Hx Hepatitis Musculoskeltal Medical History: Reports Hx Gout Psychiatric Medical History: Reports: Hx Depression Infectious Medical History: Denies: Hx Hepatitis Past Surgical History: Reports: Hx Cardiac Catheterization, Hx Cardiac Surgery - stents. Denies: Hx Mastectomy, Hx Open Heart Surgery, Hx Pacemaker - Immunizations Hx Diphtheria, Pertussis, Tetanus Vaccination: Yes Physical Exam - Vital signs Vitals: Temp Pulse Resp BP Pulse Ox 98.1 F 90 18 133/67 H 98 06/04/19 16:28 06/04/19 16:28 06/04/19 16:28 06/04/19 16:28 06/04/19 16:28 Course - Vital Signs Vital signs: Temp Pulse Resp BP Pulse Ox 98.1 F 90 18 133/67 H 98 06/04/19 16:28 06/04/19 16:28 06/04/19 16:28 06/04/19 16:28 06/04/19 16:28 Doctor's Discharge - Discharge Referrals: TENISHA RIVAS MD [Primary Care Provider] - Follow up as needed
--- NOTE | 2019-06-04 17:07 | RADIOLOGY REPORT (SQ) ---
EXAM DESCRIPTION: KNEE LEFT 4 VIEW COMPLETED DATE/TIME: 06/04/2019 4:57 pm REASON FOR STUDY: Pain injury fall COMPARISON: None. NUMBER OF VIEWS: Four views. TECHNIQUE: AP, lateral, and both oblique radiographic images acquired of the left knee. LIMITATIONS: None. FINDINGS: MINERALIZATION: Normal. BONES: No acute fracture or dislocation. No worrisome bone lesions. JOINT: No effusion. SOFT TISSUES: No soft tissue swelling. No radio-opaque foreign body. OTHER: No other significant finding. IMPRESSION: NEGATIVE STUDY OF THE LEFT KNEE. NO RADIOGRAPHIC EVIDENCE OF ACUTE INJURY. TECHNICAL DOCUMENTATION: JOB ID: [id number] 2010 [employer]- All Rights Reserved Reading location - IP/workstation name: [email or web address]
--- NOTE | 2019-06-04 17:08 | RADIOLOGY REPORT (SQ) ---
EXAM DESCRIPTION: KNEE RIGHT 4 VIEWS COMPLETED DATE/TIME: 06/04/2019 4:57 pm REASON FOR STUDY: Pain injury fall COMPARISON: None. NUMBER OF VIEWS: Four views. TECHNIQUE: AP, lateral, and both oblique radiographic images acquired of the right knee. LIMITATIONS: None. FINDINGS: MINERALIZATION: Normal. BONES: Transverse minimally fracture of the patella. JOINT: No effusion. SOFT TISSUES: No soft tissue swelling. No radio-opaque foreign body. OTHER: No other significant finding. IMPRESSION: Minimally displaced patellar fracture. TECHNICAL DOCUMENTATION: JOB ID: [id number] 2010 [employer]- All Rights Reserved Reading location - IP/workstation name: [email or web address]
--- NOTE | 2019-06-04 19:15 | ER Document Report ---
ED Fall - General Mode of Arrival: Ambulatory Information source: Patient TRAVEL OUTSIDE OF THE [place] IN LAST 30 DAYS: No - HPI Occurred: Just prior to arrival Where: Home, Indoors Context: Tripped Associated symptoms: None Location of injury/pain: Knee Quality of pain: No pain Pain Level: Denies - General Chief Complaint: Fall Stated Complaint: FALL - KNEE PAIN Time Seen by Provider: 06/04/19 16:32 Primary Care Provider: TENISHA RIVAS MD [Primary Care Provider] - Follow up as needed MARCIO VENTURA MD [ACTIVE STAFF] - Follow up in 3-5 days Notes: 68-year-old female presented to ED for complaint of fall this morning. She states that the dynamite cartridge crimper came to the door and after that she needs something. She wanted to know why he came to the door and he told her it did not matter. She states that she had fallen this morning and he said that he was going to call 911 for the ambulance. She states she did fall on the floor on a carpeted floor with no padding. She does have pain and swelling to the right knee from her fall this morning. She is alert oriented respirations regular nonlabored speaking in full sentences. She does live at home alone with her cats. (GREGG PONCE) - Related data Allergies/Adverse Reactions: Beta-Blockers (Beta-Adrenergic Bloc Allergy (Verified 10/26/18 17:02) Iodinated Contrast Media [IV Dye, Iodine Containing] Allergy (Verified 10/26/18 17:02) Past Medical History - General Information source: Patient - Social History Smoking Status: Never Smoker Chew tobacco use (# tins/day): No Frequency of alcohol use: None Drug Abuse: None Lives with: Family Family History: None Patient has suicidal ideation: No Patient has homicidal ideation: No - Past Medical History Cardiac Medical History: Reports: Hx Coronary Artery Disease, Hx Heart Attack, Hx Hypercholesterolemia, Hx Hypertension Pulmonary Medical History: Reports: Hx Asthma Neurological Medical History: Reports: None Endocrine Medical History: Reports: Hx Diabetes Mellitus Type 2 Renal/ Medical History: Reports: Hx End Stage Renal Disease Malignancy Medical History: Reports: None GI Medical History: Reports: Hx Hiatal Hernia, Hx Ulcer Musculoskeletal Medical History: Reports Hx Gout Skin Medical History: Reports None Psychiatric Medical History: Reports: Hx Depression Traumatic Medical History: Reports: None Infectious Medical History: Reports: None Past Surgical History: Reports: Hx Cardiac Catheterization, Hx Cardiac Surgery - stents, Hx Tonsillectomy - Immunizations Hx Diphtheria, Pertussis, Tetanus Vaccination: Yes Review of Systems - Review of Systems Constitutional: No symptoms reported EENT: No symptoms reported Cardiovascular: No symptoms reported Respiratory: No symptoms reported Gastrointestinal: No symptoms reported Genitourinary: No symptoms reported Female Genitourinary: No symptoms reported Musculoskeletal: Joint pain - left knee Skin: No symptoms reported Hematologic/Lymphatic: No symptoms reported Neurological/Psychological: No symptoms reported -: Yes All other systems reviewed and negative Physical Exam - Vital signs Interpretation: Normal - General General appearance: Appears well, Alert - HEENT Head: Normocephalic, Atraumatic Eyes: Normal Pupils: PERRL - Respiratory Respiratory status: No respiratory distress Chest status: Nontender Breath sounds: Normal Chest palpation: Normal - Cardiovascular Rhythm: Regular Heart sounds: Normal auscultation Murmur: No - Abdominal Inspection: Normal Distension: No distension Bowel sounds: Normal Tenderness: Nontender Organomegaly: No organomegaly - Back Back: Normal, Nontender - Extremities General upper extremity: Normal inspection, Nontender, Normal color, Normal ROM, Normal temperature Hip: Normal, Nontender Thigh: Normal, Nontender Knee: Tender, Ecchymosis, Instability, Joint effusion, Pain with ROM, Patellar tendon intact, Tender joint line. No: Abrasion, Deformity, Dislocation, Drawer's test instability, Laxity with valgus stress, Laxity with varus stress, Popliteal fossa tender Calf: Normal, Nontender Ankle: Normal, Nontender Foot: Normal, Nontender - Neurological Neuro grossly intact: Yes Cognition: Normal Orientation: AAOx4 Franklin Coma Scale Eye Opening: Spontaneous Franklin Coma Scale Verbal: Oriented Yu Coma Scale Motor: Obeys Commands Yu Coma Scale Total: 15 Speech: Normal Motor strength normal: LUE, RUE, LLE, RLE Sensory: Normal - Psychological Associated symptoms: Normal affect, Normal mood - Skin Skin Temperature: Warm Skin Moisture: Dry Skin Color: Normal - Vital signs Vitals: Temp Pulse Resp BP Pulse Ox 98.1 F 90 18 133/67 H 98 06/04/19 16:28 06/04/19 16:28 06/04/19 16:28 06/04/19 16:28 06/04/19 16:28 Course - Diagnostic Test Radiology reviewed: Image reviewed, Reports reviewed - Re-evaluation Re-evalutation: 06/04/19 19:30 The patient was seen and evaluated by me with the midlevel provider. The patient has a fractured and slightly displaced patella from a fall. She was placed in a knee immobilizer. She already has a walker she uses to get around. Patient was told to follow up with Ortho and consider follow up with PT/OT. (NGUYEN,JAYLAN Pascual) - Vital Signs Vital signs: Temp Pulse Resp BP Pulse Ox 98.1 F 90 18 133/67 H 98 06/04/19 16:28 06/04/19 16:28 06/04/19 16:28 06/04/19 16:28 06/04/19 16:28 Procedures - Immobilization Left Knee Time completed: 19:22 Immobilizer type: Knee immobilizer Performed by: PCT Post-Proc Neuro Vasc Exam: Normal Alignment checked and good: Yes Discharge - Discharge Clinical Impression: Left patella fracture Qualifiers: Encounter type: initial encounter Fracture type: closed Fracture morphology: transverse Fracture alignment: displaced Qualified Code(s): S82.032A - Displaced transverse fracture of left patella, initial encounter for closed fracture Condition: Stable Disposition: HOME, SELF-CARE Additional Instructions: Fractured Patella You have broken the kneecap (patella). Mild fractures can be treated with splinting. Serious fractures (those that split the kneecap so the thigh muscle and kneecap tendon aren't connected) usually need surgery. The entire knee will swell and bulge with fluid. There may be a lot of bruising. The knee will be splinted. Apply ice packs, and elevate the leg. You shouldn't walk on the leg at first. After a couple of days, you can walk in the splint if it doesn't hurt. Call the doctor at once if there is severe swelling, increasing pain, num bness, or other alarming symptoms. Knee Immobilizing Splint The knee immobilizing splint will protect the injury while healing begins. This type of splint does not allow the knee to bend at all. No running or sports will be possible. If the splint allows painfree walking, it's giving adequate protection. If there is still significant pain, crutches may be needed as well. Don't do an ything that hurts. Adjusted the splint, if necessary. The stiffeners on the sides are attached with Velcro, so they can be easily moved to adjust for thigh and calf size. If you need help with these adjustments, come back. You will lose muscle strength in the thigh while using this splint. The doctor will advise you if it's safe to do isometric knee exercises while you use it. Acetaminophen Acetaminophen may be taken for pain relief or fever control. It's much safer than aspirin, offering a wider range of "safe" dosages. It is safe during . Some brand names are Tylenol, Panadol, Datril, Anacin 3, Tempra, and Liquiprin. Acetaminophen can be repeated every four hours. The following are maximum recommended dosages: WEIGHT Dose Drops Elixir Chewable(80mg) (LBS.) drprs=droppers tsp=teaspoon 6 40 mg .4 ml (1/2) 6-11 80 mg .8 ml (full) 1/2 tsp 1 tab 12-16 120 mg 1 1/2 drprs 3/4 tsp 1 1/2 tabs 17-23 160 mg 2 drprs 1 tsp 2 tabs 24-30 240 mg 3 drprs 1 1/2 tsp 3 tabs 30-35 320 mg 2 tsp 4 tabs 36-41 360 mg 2 1/4 tsp 4 1/2 tabs 42-47 400 mg 2 1/2 tsp 5 tabs 48-53 480 mg 3 tsp 6 tabs 54-59 520 mg 3 1/4 tsp 6 1/2 tabs 60-64 560 mg 3 1/2 tsp 7 tabs 65-70 600 mg 3 3/4 tsp 7 1/2 tabs 71-76 640 mg 4 tsp 8 tabs 77-82 720 mg 4 1/2 tsp 9 tabs 83-88 800 mg 5 tsp 10 tabs >89 pounds or adults 650 mg to 900 mg Acetaminophen can be repeated every four hours. Maximum daily dose not to exceed 4000 mg. These maximum recommended dosages are slightly higher than the dosages written on the product container, but these dosages are very safe and well below the toxic dosage for acetaminophen. Ice & Elevation Apply ice packs frequently against the painful area. Many different schedules are recommended, such as "20 minutes on, 20 minutes off" or "one hour ice, two hours rest." If you need to work, you may need to go longer between ice treatments. You should plan to have the area ice packed AT LEAST one-fourth of the time. The ice should be applied over the wrap, tape, or splint, or over a layer of cloth -- not directly against the skin. Some ice bags have a built-in cloth and can be put directly on the skin. Your injured part should be elevated as much as possible over the next 48 hours. Try to keep the injury above the level of the heart. Avoid use of the injured area. Elevation and rest will decrease the swelling. FOLLOW-UP CARE: If you have been referred to a physician for follow-up care, call the physicians office for an appointment as you were instructed or within the next two days. If you experience worsening or a significant change in your symptoms, notify the physician immediately or return to the Emergency Department at any time for re-evaluation. Forms: Elevated Blood Pressure Referrals: TENISHA RIVAS MD [Primary Care Provider] - Follow up as needed MARCIO VENTURA MD [ACTIVE STAFF] - Follow up in 3-5 days
== END 2019-06-04 19:39 | disposition home or self-care (01) ==
LOC: ER 16:14
DX: S82.032A Displaced transverse fracture of left patella, initial encounter for closed fracture (principal); W18.30XA Fall on same level, unspecified, initial encounter; Y92.009 Unspecified place in unspecified non-institutional (private) residence as the place of occurrence of the external cause; I25.10 Atherosclerotic heart disease of native coronary artery without angina pectoris; E78.00 Pure hypercholesterolemia, unspecified; E11.22 Type 2 diabetes mellitus with diabetic chronic kidney disease; I12.0 Hypertensive chronic kidney disease with stage 5 chronic kidney disease or end stage renal disease; N18.6 End stage renal disease; I25.2 Old myocardial infarction
CPT/HCPCS: 99283

== ENCOUNTER 2019-06-20 08:13 | Inpatient (IN) | payer MEDICARE, MEDICAID ==
--- NOTE | 2019-06-20 08:19 | ER Document Report ---
ED General - General Chief Complaint: Arm Pain Stated Complaint: FALL/ARM PAIN Time Seen by Provider: 06/20/19 08:17 Primary Care Provider: TENISHA RIVAS MD [Primary Care Provider] - Follow up as needed Mode of Arrival: Medic Information source: Patient, Emergency Med Personnel, [facility] Records TRAVEL OUTSIDE OF THE [place] IN LAST 30 DAYS: No - HPI Onset: This morning Onset/Duration: Sudden Quality of pain: Throbbing Severity: Moderate Pain Level: 3 Context: Patient is a 68-year-old female presenting to the emergency department chief complaint of right shoulder pain. Patient states that she was walking this morning and tripped in a hole in the ground falling on her right shoulder. Patient states that she did not have any chest pain palpitations shortness of breath or dizziness prior to the fall. Associated symptoms: None Exacerbated by: Movement, Deep breathing Relieved by: Denies Similar symptoms previously: No Recently seen / treated by doctor: No - Related Data Allergies/Adverse Reactions: Beta-Blockers (Beta-Adrenergic Bloc Allergy (Verified 06/20/19 09:57) Iodinated Contrast Media [IV Dye, Iodine Containing] Allergy (Verified 06/20/19 09:57) Past Medical History - General Information source: Patient, [facility] Records - Social History Smoking Status: Former Smoker Chew tobacco use (# tins/day): No Frequency of alcohol use: None Drug Abuse: None Lives with: Alone Family History: None Patient has suicidal ideation: No Patient has homicidal ideation: No - Past Medical History Cardiac Medical History: Reports: Hx Coronary Artery Disease, Hx Heart Attack, Hx Hypercholesterolemia, Hx Hypertension Pulmonary Medical History: Reports: Hx Asthma Neurological Medical History: Denies: Hx Cerebrovascular Accident, Hx Seizures Endocrine Medical History: Reports: Hx Diabetes Mellitus Type 2 Renal/ Medical History: Reports: Hx End Stage Renal Disease. Denies: Hx Peritoneal Dialysis GI Medical History: Reports: Hx Hiatal Hernia, Hx Ulcer. Denies: Hx Hepatitis Musculoskeletal Medical History: Reports Hx Gout Psychiatric Medical History: Reports: Hx Depression Infectious Medical History: Denies: Hx Hepatitis Past Surgical History: Reports: Hx Cardiac Catheterization, Hx Cardiac Surgery - stents, Hx Orthopedic Surgery, Hx Tonsillectomy. Denies: Hx Mastectomy, Hx Open Heart Surgery, Hx Pacemaker - Immunizations Hx Diphtheria, Pertussis, Tetanus Vaccination: Yes Review of Systems - Review of Systems Constitutional: No symptoms reported EENT: No symptoms reported Cardiovascular: No symptoms reported Respiratory: No symptoms reported Gastrointestinal: No symptoms reported Genitourinary: No symptoms reported Female Genitourinary: No symptoms reported Musculoskeletal: See HPI Skin: No symptoms reported Hematologic/Lymphatic: No symptoms reported Neurological/Psychological: No symptoms reported -: Yes All other systems reviewed and negative Physical Exam - Vital signs Vitals: Temp Pulse Resp BP Pulse Ox 98.0 F 76 18 132/68 H 100 06/20/19 08:19 06/20/19 08:19 06/20/19 08:19 06/20/19 08:19 06/20/19 08:19 - Notes Notes: PHYSICAL EXAMINATION: GENERAL: Well-appearing, well-nourished and in no acute distress. HEAD: Atraumatic, normocephalic. EYES: Pupils equal round and reactive to light, extraocular movements intact, sclera anicteric, conjunctiva are normal. ENT: nares patent, oropharynx clear without exudates. Moist mucous membranes. NECK: Normal range of motion, supple without lymphadenopathy, no appreciable JVD LUNGS: Lungs clear to auscultation bilaterally and equal. No wheezes rales or rhonchi. HEART: Regular rate and rhythm without murmurs ABDOMEN: Soft, nontender, normal bowel sounds. No guarding, no rebound. No masses appreciated. EXTREMITIES: Active full range of motion with the exception of decreased range of motion to the right upper extremity secondary to pain, no pitting or edema. No cyanosis. 2+ pulses x4 NEUROLOGICAL: No focal neurological deficits. Moves all extremities spontaneously and on command. SKIN: Warm, Dry, and intact. Normal turgor, no rashes or lesions noted. Course - Re-evaluation Re-evalutation: 06/20/19 08:58 After initial examination of the patient's shoulder x-ray it is apparent that the patient has multi-fractures to the right upper extremity with distal fragment and a spiral component. IV access will be obtained admission/preop lab work has been ordered as well as audible chest x-ray and EKG. I have consulted orthopedics Dr. Betts said that he would evaluate the patient's films and call me back. 06/20/19 09:49 Laboratory studies have been reviewed no significant new findings at this point in time. Radiologic results have been reviewed by me. Currently waiting on orthopedics to evaluate the patient and determine treatment/management. 06/20/19 10:12 Dr. Betts, orthopedics is at bedside. 06/20/19 10:37 Patient has been seen by orthopedics who agrees to admit the patient for further evaluation treatment and management as needed. Patient did receive morphine 4 mg IV and Zofran 4 mg IV for pain and nausea management while in the emergency department. Patient is remained stable and on a bale sewer. - Vital Signs Vital signs: Temp Pulse Resp BP Pulse Ox 98.0 F 76 18 132/68 H 100 06/20/19 08:19 06/20/19 08:19 06/20/19 08:19 06/20/19 08:19 06/20/19 08:19 - Laboratory Result Diagrams: 06/20/19 09:01 06/20/19 09:01 Laboratory results interpreted by me: 06/20/19 06/20/19 09:01 09:01 WBC 11.0 H RBC 3.41 L Hgb 11.0 L Hct 32.6 L RDW 15.1 H Absolute Neuts (auto) 8.5 H BUN 37 H Creatinine 2.19 H Est GFR ( Amer) 27 L Est GFR (MDRD) Non-Af 22 L Glucose 223 H - Diagnostic Test Radiology reviewed: Image reviewed, Reports reviewed - EKG Interpretation by Me EKG shows normal: Sinus rhythm Rate: Normal Rhythm: NSR When compared to previous EKG there are: No significant change Discharge - Discharge Clinical Impression: Accidental fall Qualifiers: Encounter type: initial encounter Qualified Code(s): W19.XXXA - Unspecified fall, initial encounter Humerus fracture Qualifiers: Encounter type: initial encounter Humerus Location: shaft Fracture morphology: other fracture Laterality: right Condition: Stable Disposition: ADMITTED INPATIENT Admitting Provider: Alpesh Unit Admitted: Medical Floor Referrals: TENISHA RIVAS MD [Primary Care Provider] - Follow up as needed
[2019-06-20] MEDS ORDERED: ONDANSETRON HCL INJ/PF 4 MG/2 ML SDV IV ONE (09:16)
[2019-06-20] MEDS ORDERED: MORPHINE SULFATE 10 MG/ML INJ IV ONE (09:16)
[2019-06-20 09:20] LABS: ABSOLUTE EOSINOPHILS # (AUTO) 0.2 10^3/uL (0.0-0.6); ABSOLUTE LYMPHOCYTES (AUTO) 1.6 10^3/uL (0.5-4.7); ABSOLUTE MONOCYTES (AUTO) 0.6 10^3/uL (0.1-1.4); ABSOLUTE NEUT (AUTO) 8.5 10^3/uL (1.7-8.2); BASOPHILS % (AUTO) 0.4 % (0-2); EOSINOPHILS % (AUTO) 1.5 % (0-6); HEMATOCRIT 32.6 % (36.0-47.0); LYMPHOCYTES % (AUTO) 14.7 % (13-45); MEAN CORPUSCULAR HEMOGLOBIN 32.2 pg (27.0-33.4); MEAN CORPUSCULAR HGB CONC 33.7 g/dL (32.0-36.0); MEAN CORPUSCULAR VOLUME 96 fl (80-97); MONOCYTES % (AUTO) 5.8 % (3-13); PLATELET COUNT 166 10^3/uL (150-450); RED BLOOD COUNT 3.41 10^6/uL (3.72-5.28); RED CELL DISTRIBUTION WIDTH 15.1 % (11.5-14.0); SEGMENTED NEUTROPHILS % (AUTO) 77.6 % (42-78); TOTAL CELLS COUNTED % (AUTO) 100 %
--- NOTE | 2019-06-20 09:22 | RADIOLOGY REPORT (SQ) ---
EXAM DESCRIPTION: ELBOW RIGHT AP/LAT IMAGES COMPLETED DATE/TIME: 06/20/2019 8:53 am REASON FOR STUDY: Fall, bone pain COMPARISON: Right shoulder two views NUMBER OF VIEWS: One view. TECHNIQUE: Oblique radiographic image acquired of the right elbow. LIMITATIONS: Patient has an acute spiral fracture right proximal humeral diaphysis. Nonstandard rad iographic positioning. FINDINGS: Patient has an acute spiral fracture right proximal humeral diaphysis. Nonstandard radiog raphic positioning. Normal bone density. No gross acute fracture or malalignment. Elbow joint effu rian could not be excluded. IMPRESSION: Very limited single oblique view of the right elbow, no gross fracture or malalignment TECHNICAL DOCUMENTATION: JOB ID: [id number] 2010 [employer]- All Rights Reserved Reading location - IP/workstation name: [id number]
--- NOTE | 2019-06-20 09:24 | RADIOLOGY REPORT (SQ) ---
EXAM DESCRIPTION: SHOULDER RIGHT 2 OR MORE VIEWS IMAGES COMPLETED DATE/TIME: 06/20/2019 8:53 am REASON FOR STUDY: Fall, bone pain COMPARISON: None. NUMBER OF VIEWS: Two views. TECHNIQUE: AP and Y-view images acquired of the right shoulder. LIMITATIONS: None. FINDINGS: MINERALIZATION: Osteopenic BONES: Acute spiral fracture proximal right humeral diaphysis with valgus angulation JOINTS: No glenohumeral dislocation. Acromioclavicular joint intact VISUALIZED LUNGS AND RIBS: No pneumothorax. No acute rib fracture. Old healed right 4th and 5th ant erior rib fractures, old healed posterior right 7th rib fracture SOFT TISSUES: No radiopaque foreign body. OTHER: No other significant finding. IMPRESSION: Acute spiral fracture proximal right humeral diaphysis with mild valgus angulation TECHNICAL DOCUMENTATION: JOB ID: [id number] 2010 [employer]- All Rights Reserved Reading location - IP/workstation name: [id number]
[2019-06-20 09:35] LABS: ALBUMIN 4.1 g/dL (3.5-5.0); ALKALINE PHOSPHATASE 100 U/L (38-126); ANION GAP 10 (5-19); ASPARTATE AMINO TRANSFERASE 21 U/L (14-36); BILIRUBIN,DIRECT 0.3 mg/dL (0.0-0.4); BILIRUBIN,TOTAL 0.3 mg/dL (0.2-1.3); BLOOD UREA NITROGEN 37 mg/dL (7-20); CALCIUM 9.1 mg/dL (8.4-10.2); CARBON DIOXIDE 23 mmol/L (22-30); CHLORIDE 106 mmol/L (98-107); GLUCOSE 223 mg/dL (75-110); POTASSIUM 4.5 mmol/L (3.6-5.0); TOTAL PROTEIN 6.9 g/dL (6.3-8.2)
--- NOTE | 2019-06-20 10:03 | RADIOLOGY REPORT (SQ) ---
EXAM DESCRIPTION: CHEST SINGLE VIEW IMAGES COMPLETED DATE/TIME: 06/20/2019 9:38 am REASON FOR STUDY: pre op COMPARISON: AP chest 07/25/2013 EXAM PARAMETERS: NUMBER OF VIEWS: One view. TECHNIQUE: Single frontal radiographic view of the chest acquired. RADIATION DOSE: NA LIMITATIONS: None. FINDINGS: LUNGS AND PLEURA: No opacities, masses or pneumothorax. No pleural effusion. MEDIASTINUM AND HILAR STRUCTURES: No masses. Contour normal. HEART AND VASCULAR STRUCTURES: Heart normal in size. Normal vasculature. BONES: Acute spiral fracture right proximal humeral diaphysis HARDWARE: None in the chest. OTHER: No other significant finding. IMPRESSION: Right proximal humerus fracture. No acute cardiopulmonary changes TECHNICAL DOCUMENTATION: JOB ID: [id number] 2010 [employer]- All Rights Reserved Reading location - IP/workstation name: [id number]
[2019-06-20] MEDS ORDERED: MAGNESIUM HYDROXIDE SUSP 30 ML UDCUP PO PRN (10:37)
[2019-06-20] MEDS ORDERED: ONDANSETRON 4 MG TAB.RAPDIS PO PRN (10:49)
[2019-06-20 11:20] LABS: INTERNATIONAL RATION (INR) 0.97; PROTHROMBIN TIME 12.9 SEC (11.4-15.4)
--- NOTE | 2019-06-20 11:21 | PDOC H&P ---
History of Present Illness Admission Date/PCP: TENISHA RIVAS MD History of Present Illness: TATO ROBLES is a 68 year old female with a recent history of a right patella fracture that was minimally displaced and seen in my office last week. Because it was minimally displaced and she had only mild pain, we treated her in a knee immobilizer and allowed her to return home weightbearing as tolerated as long as the knee was straight. However she has had some history of frequent falls and had a subsequent fall at home. She lives at home alone and fell on her right shoulder sustaining pain and debility and presented to the emergency department. The emergency department she is found to have a comminuted humeral shaft fracture. I had a long conversation with the patient regarding benefits and risks of different treatment options and the patient will likely need admission for rehab versus potential surgical management. She reports no changes in her knee and that she was wearing her knee immobilizer when she fell and did not land on her knee. She denies syncopal symptoms prior to the fall but does have a history of altered mental status, syncopal symptoms, heart disease and kidney disease as well as poorly controlled blood sugar with resulting altered mental status. Pain in the right shoulder is severe at this time worse with any motion improved with rest and pain medication. It is 8 out of 10 aching in nature. She denies distal paresthesia to the right hand denies loss of motor function. She denies head injury or current headache, denies loss of consciousness. Past Medical History Cardiac Medical History: Reports: Coronary Artery Disease, Myocardial Infarction, Hyperlipidema, Hypertension Pulmonary Medical History: Reports: Asthma Neurological Medical History: Denies: Seizures Endocrine Medical History: Reports: Diabetes Mellitus Type 2 Renal/ Medical History: Reports: End Stage Renal Disease GI Medical History: Reports: Hiatal Hernia Denies: Hepatitis Musculoskeltal Medical History: Reports: Gout Psychiatric Medical History: Reports: Depression Hematology: Reports: Anemia Denies: Sickle Cell Disease Past Surgical History Past Surgical History: Reports: Cardiac Catheterization, Orthopedic Surgery, Tonsillectomy Denies: Amputation, Mastectomy, Pacemaker Social History Lives with: Alone Smoking Status: Never Smoker Family History Family History: None Parental Family History Reviewed: No Children Family History Reviewed: NA Sibling(s) Family History Reviewed.: NA Medication/Allergy Home Medications: Aspirin [Aspirin EC] 81 mg PO DAILY 07/25/13 Colchicine [Colchicine 0.6 mg Tablet] 0.6 mg PO BID PRN 07/25/13 Insulin Glargine,Hum.rec.anlog [Lantus Insulin 100 Unit/1 ml 10 ml] unit SUBCUT QHS PRN 07/25/13 Levothyroxine Sodium [Synthroid] 75 mcg PO DAILY 07/25/13 Loratadine [Claritin 10 mg Tablet] 10 mg PO DAILY 07/25/13 Rosuvastatin Calcium [Crestor 20 mg Tablet] 20 mg PO DAILY 07/25/13 Alprazolam [Xanax] 2 mg PO DAILY 07/19/18 Insulin Glargine,Hum.rec.anlog [Lantus Insulin 100 Unit/1 ml 10 ml] 0 unit SUBCUT DAILY 07/19/18 Isosorbide Mononitrate [Imdur 30 mg Tablet.er] 30 mg PO DAILY 07/19/18 Mometasone Furoate [Nasonex] 1 spray NS Q12 07/19/18 Ranolazine [Ranexa] 1,000 mg PO BID 07/19/18 Sertraline HCl [Zoloft] 100 mg PO BID 07/19/18 Allergies/Adverse Reactions: Beta-Blockers (Beta-Adrenergic Bloc Allergy (Verified 06/20/19 09:57) Iodinated Contrast Media [IV Dye, Iodine Containing] Allergy (Verified 06/20/19 09:57) Review of Systems Review of Systems: Constitutional: ABSENT: anorexia, chills, night sweats Cardiovascular: ABSENT: chest pain Respiratory: ABSENT: dyspnea Gastrointestinal: ABSENT: vomiting Genitourinary: ABSENT: dysuria Integumentary: ABSENT: rash Neurological: ABSENT: confusion, memory loss, numbness Psychiatric: ABSENT: hallucinations Hematologic/Lymphatic: ABSENT: easy bleeding All negative as above aside from that reported in the HPI Physical Exam Vital Signs: Temp Pulse Resp BP Pulse Ox 98.0 F 76 18 132/68 H 100 06/20/19 08:19 06/20/19 08:19 06/20/19 08:19 06/20/19 08:19 06/20/19 08:19 Intake & Output 06/19/19 06/20/19 06/21/19 06:59 06:59 06:59 Weight 69.3 kg Physical Exam: General appearance: PRESENT: no acute distress, cooperative, well-nourished Head exam: PRESENT: atraumatic, normocephalic Eye exam: PRESENT: EOMI Ear exam: PRESENT: normal external ear exam Mouth exam: PRESENT: neck supple Neck exam: ABSENT: tracheal deviation Respiratory exam: PRESENT: symmetrical, unlabored. ABSENT: accessory muscle use, wheezes Pulses: PRESENT: normal radial pulses, normal dorsalis pedis pulse Vascular exam: PRESENT: normal capillary refill GI/Abdominal exam: ABSENT: distended, firm Extremities exam: PRESENT: full ROM of bilateral shoulders, elbows wrists, knees, hips and ankles without pain Musculoskeletal exam: PRESENT: full ROM, normal inspection of all 4 extremities aside from that noted below. Neurological exam: PRESENT: alert, awake, oriented to person, oriented to place, oriented to time Psychiatric exam: PRESENT: appropriate affect. ABSENT: agitated Focused psych exam: ABSENT: catatonic Skin exam: PRESENT: intact. ABSENT: dry All as above aside from that noted in the HPI and the following: upper extremity sensation grossly intact to radial median and ulnar nerve. upper extremity motor function grossly intact to radian median ulnar nerve AIN and PIN Pulses 2+, capillary refill less than 2 seconds There is no palpable pain in the elbow or wrist, there is pain in the right shoulder. There is swelling present in the right shoulder. She is currently in a sling and swath. Compartments soft skin intact Right lower extremity Currently extended in bed. Some mild tenderness palpation of the right patella. Right lower extremity is grossly neurovascularly intact. Compartments are soft. Skin is intact. Limited range of motion of the knee due to functional restriction because of fracture. Full range of motion of the right ankle Results Laboratory Results: 06/20/19 09:01 06/20/19 09:01 06/20/19 06/20/19 09:01 09:01 WBC 11.0 H RBC 3.41 L Hgb 11.0 L Hct 32.6 L MCV 96 MCH 32.2 MCHC 33.7 RDW 15.1 H Plt Count 166 Seg Neutrophils % 77.6 Sodium 139.3 Potassium 4.5 Chloride 106 Carbon Dioxide 23 Anion Gap 10 BUN 37 H Creatinine 2.19 H Est GFR ( Amer) 27 L Glucose 223 H Calcium 9.1 Total Bilirubin 0.3 AST 21 Alkaline Phosphatase 100 Total Protein 6.9 Albumin 4.1 Impressions: Elbow X-Ray 06/20/19 00:00 IMPRESSION: Very limited single oblique view of the right elbow, no gross fracture or malalignment Shoulder X-Ray 06/20/19 00:00 IMPRESSION: Acute spiral fracture proximal right humeral diaphysis with mild valgus angulation Chest X-Ray 06/20/19 08:55 IMPRESSION: Right proximal humerus fracture. No acute cardiopulmonary changes Assessment & Plan - Diagnosis (1) Fracture of humeral shaft, right, closed Is this a current diagnosis for this admission?: Yes Plan: I had a long conversation with the patient regards to the risks and benefits of surgery. Surgery is not required for a fracture pattern that she has, but will allow her to use her upper extremity more rapidly and potentially allow her to rehab her knee quicker as well. She is in considerable amount of pain at this time and is requesting surgery. She will need cardiac and medical clearance prior to surgery. There is some potential that she may be able to avoid surgical management by having a physical therapy and Occupational Therapy evaluation to see how functional she may be with nonoperative management and a short potential rehab stay. Prior to surgical management she will be nonweightbearing right upper extremity, weightbearing as tolerated right lower extremity while fully extended. I will have a further discussion with her tomorrow after admission and giving her some time to consider the options. Additionally she has requested that I contact her son for further decision making. She is n.p.o. at midnight tonight Hold all chemical DVT prophylaxis at midnight tonight Potential open reduction internal fixation tomorrow (2) Patellar sleeve fracture of right knee Is this a current diagnosis for this admission?: Yes Plan: Right knee x-ray pending If there is any further fracture displacement she may need operative intervention of the right patella as well I will have a further discussion with her about open reduction internal fixation for the right patella pending x-ray and discussion with her son. Knee immobilizer on when out of bed at all times. No flexion of the knee at all times, weightbearing as tolerated in knee immobilizer
--- NOTE | 2019-06-20 11:42 | RADIOLOGY REPORT (SQ) ---
EXAM DESCRIPTION: KNEE RIGHT 3 VIEWS IMAGES COMPLETED DATE/TIME: 06/20/2019 11:26 am REASON FOR STUDY: patella fracture COMPARISON: 06/04/2019 NUMBER OF VIEWS: Three views. TECHNIQUE: AP, lateral, and sunrise patella radiographic images acquired of the right knee. LIMITATIONS: None. FINDINGS: MINERALIZATION: Normal. BONES: A subacute transverse fracture through the patella is present. Distraction of patellar fragm ents is similar compared to 06/04/2019. No bony bridging callus is seen. JOINT: Suprapatellar knee joint effusion is smaller than on 06/04/2019. Chondrocalcinosis is present. SOFT TISSUES: No soft tissue swelling. No radio-opaque foreign body. OTHER: No other significant finding. IMPRESSION: SUBACUTE TRANSVERSE FRACTURE OF THE PATELLA. MINIMAL STABLE DISTRACTION OF PATELLAR FRA GMENTS. NO GROSS BONY BRIDGING CALLUS TECHNICAL DOCUMENTATION: JOB ID: [id number] 2010 [employer]- All Rights Reserved Reading location - IP/workstation name: [id number]
--- NOTE | 2019-06-20 12:16 | PDOC CONSULTATION ---
Consultation Consult Date: 06/20/19 Attending physician:: BEATRIS RUCKER JR Provider Consulted: CHIRAG CAAL Consult reason:: Preop History of Present Illness Admission Date/PCP: 06/20/19 10:48 TENISHA RIVAS MD Patient complains of: No cardiac complaints. History of Present Illness: TATO ROBLES is a 68 year old female with history of coronary artery disease status post stenting to the RCA and the left circumflex in 2011 and another stent to the left circumflex in 2012, PCI to the LAD on 06/21/16 with atherectomy of the mid LAD and balloon angioplasty of ostium of D2 with implantation of a CORRY, chronic stable angina, allergic to beta blockers, hypertension, hyperlipidemia, peripheral vascular disease with moderate carotid artery disease who is consulted to our service for preoperative evaluation. The patient had been doing well from the cardiovascular standpoint since her last evaluation in my office in September 2018. She specifically denies chest pain, shortness of breath, OCHOA, PND, lower extremity edema, palpitations, syncope and presyncope. She specifically denies recurrence of angina on her current medical management. Unfortunately she fell and broke her right arm and need surgery. Physical exam on 06/20/2019: GENERAL: Pleasant and conversational. Oriented x3 with normal mood. Not in acute distress. Well groomed and well developed. HEENT: Normocephalic, atraumatic. Pupils equal. Sclerae anicteric. Oropharynx moist. NECK: No JVD. No carotid bruits. LUNGS: Clear to auscultation bilaterally. Normal respiratory effort without the use of accessory muscles or intercostal retractions. CARDIOVASCULAR: Regular rate and rhythm, normal S1 and S2 without murmurs, rubs, or gallops. PMI not displaced. ABDOMEN: No masses or tenderness to palpation. No bruit. No splenomegaly or hepatomegaly. No abdominal aorta bruit noted. EXTREMITIES: No edema, no cyanosis, no clubbing. +2 pulses femoral and pedal pulses bilaterally. SKIN: No lesions or rashes. MUSCULOSKELETAL: No chest tenderness to palpation. NEUROLOGIC: Nonfocal. No gross sensory or motor deficits bilateral upper or lower extremities. Cardiac studies: PCI on 06/21/16: -90% calcific mid LAD bifurcation lesion--> orbital atherectomy followed by stenting with a 2.5 mm x 18 mm Xience CORRY. -Residual 60-70% ostial D2 felt to be secondary to spasm and to be treated medically at this time. -Proximal 40% eccentric calcified proximal LAD stenoses to be treated medically. [facility] on 06/02/16: -Left main: Widely patent. -LAD: Significant calcification proximally with luminal irregularities. Eccentric 50-60% lesion at the bifurcation of the diagonal vessel--> hemodynamically significant by FFR. -D1: Large vessel, widely patent. -Left circumflex: Large vessel then noted in the mid vessel at the bifurcation of the OM which have minimal in-stent restenosis. -OM: Large vessel. What patent. -RCA: Diffusely stented proximal to me vessel with mild in-stent restenosis. 40- 50% ostial stenosis--> hemodynamically insignificant by FFR. The stent in the ongoing vessel is widely patent. -LV gram: EF greater than 55%, no MR, no aortic stenosis. EKG on 03/23/16: Normal sinus rhythm, normal EKG. Lexiscan nuclear stress test on 07/04/13: -No evidence of scar/myocardial infarction by scintigraphy. -No induced myocardial ischemia by scintigraphy. -LVEF 61%. Echocardiogram on 03/27/15: -The left ventricle is normal in size. -Ejection fraction 60-65%. -Left ventricular wall motion is normal. -Trace TR. Past Medical History Cardiac Medical History: Reports: Coronary Artery Disease, Myocardial Infarction, Hyperlipidema, Hypertension Pulmonary Medical History: Reports: Asthma Neurological Medical History: Denies: Seizures Endocrine Medical History: Reports: Diabetes Mellitus Type 2 Renal/ Medical History: Reports: End Stage Renal Disease GI Medical History: Reports: Hiatal Hernia Denies: Hepatitis Musculoskeltal Medical History: Reports: Gout Psychiatric Medical History: Reports: Depression Hematology: Reports: Anemia Denies: Sickle Cell Disease Past Surgical History Past Surgical History: Reports: Cardiac Catheterization, Orthopedic Surgery, Tonsillectomy Denies: Amputation, Mastectomy, Pacemaker Social History Lives with: Alone Smoking Status: Never Smoker Family History Family History: None Parental Family History Reviewed: Yes Children Family History Reviewed: Yes Sibling(s) Family History Reviewed.: Yes Medication/Allergy Home Medications: Aspirin [Aspirin EC] 81 mg PO DAILY 07/25/13 Colchicine [Colchicine 0.6 mg Tablet] 0.6 mg PO BID PRN 07/25/13 Insulin Glargine,Hum.rec.anlog [Lantus Insulin 100 Unit/1 ml 10 ml] unit SUBCUT QHS PRN 07/25/13 Levothyroxine Sodium [Synthroid] 75 mcg PO DAILY 07/25/13 Loratadine [Claritin 10 mg Tablet] 10 mg PO DAILY 07/25/13 Rosuvastatin Calcium [Crestor 20 mg Tablet] 20 mg PO DAILY 07/25/13 Alprazolam [Xanax] 2 mg PO DAILY 07/19/18 Insulin Glargine,Hum.rec.anlog [Lantus Insulin 100 Unit/1 ml 10 ml] 0 unit SUBCUT DAILY 07/19/18 Isosorbide Mononitrate [Imdur 30 mg Tablet.er] 30 mg PO DAILY 07/19/18 Mometasone Furoate [Nasonex] 1 spray NS Q12 07/19/18 Ranolazine [Ranexa] 1,000 mg PO BID 07/19/18 Sertraline HCl [Zoloft] 100 mg PO BID 07/19/18 Allergies/Adverse Reactions: Beta-Blockers (Beta-Adrenergic Bloc Allergy (Verified 06/20/19 09:57) Iodinated Contrast Media [IV Dye, Iodine Containing] Allergy (Verified 06/20/19 09:57) Physical Exam Vital Signs: Temp Pulse Resp BP Pulse Ox 98.0 F 76 14 123/67 100 06/20/19 08:19 06/20/19 08:19 06/20/19 11:01 06/20/19 11:00 06/20/19 11:01 Intake & Output 06/19/19 06/20/19 06/21/19 06:59 06:59 06:59 Weight 69.3 kg Results Laboratory Results: 06/20/19 09:01 06/20/19 09:01 06/20/19 06/20/19 09:01 09:01 WBC 11.0 H RBC 3.41 L Hgb 11.0 L Hct 32.6 L MCV 96 MCH 32.2 MCHC 33.7 RDW 15.1 H Plt Count 166 Seg Neutrophils % 77.6 Sodium 139.3 Potassium 4.5 Chloride 106 Carbon Dioxide 23 Anion Gap 10 BUN 37 H Creatinine 2.19 H Est GFR ( Amer) 27 L Glucose 223 H Calcium 9.1 Total Bilirubin 0.3 AST 21 Alkaline Phosphatase 100 Total Protein 6.9 Albumin 4.1 Impressions: Elbow X-Ray 06/20/19 00:00 IMPRESSION: Very limited single oblique view of the right elbow, no gross fracture or malalignment Knee X-Ray 06/20/19 00:00 IMPRESSION: SUBACUTE TRANSVERSE FRACTURE OF THE PATELLA. MINIMAL STABLE DISTRACTION OF PATELLAR FRAGMENTS. NO GROSS BONY BRIDGING CALLUS Shoulder X-Ray 06/20/19 00:00 IMPRESSION: Acute spiral fracture proximal right humeral diaphysis with mild valgus angulation Chest X-Ray 06/20/19 08:55 IMPRESSION: Right proximal humerus fracture. No acute cardiopulmonary changes Assessment & Plan - Diagnosis (1) Preop cardiovascular exam Is this a current diagnosis for this admission?: Yes Plan: The patient is currently hemodynamically stable and has not had any ischemic complaints since her last evaluation in my office in September 2018. She is on GDM T except for a beta-kevin due to perceived side effects. Her cardiovascular exam is normal today as well as her vital signs. At this point she is cardiovascularly optimized prior to this necessary surgery therefore no further invasive work-up is indicated however we will update her echocardiogram prior to surgery. Recommendations: -Continue with current medical management. -May hold aspirin as needed prior to surgery. -Echocardiogram today to assess LV systolic function. -We will continue to follow-up with you. -Feel free to contact me directly at [phone] with questions or concerns. (2) Coronary artery disease Qualifiers: Associated angina: with stable angina Is this a current diagnosis for this admission?: Yes Plan: The patient has an extensive cardiovascular history as described above however she has remained asymptomatic and free of heart failure as well as ischemic symptoms on GDMT. Recommendations: -Continue with current medical management. -Echocardiogram. -We will continue to follow-up with you. (3) Chronic kidney disease Qualifiers: Chronic kidney disease stage: unspecified stage Qualified Code(s): N18.9 - Chronic kidney disease, unspecified Is this a current diagnosis for this admission?: Yes Plan: Her creatinine in the emergency room today appears to be slightly above her baseline when compared to prior measurements in my office however it is improved when compared to her last BMP in October 2018. Recommendations: -We will defer further management to primary team.
[2019-06-20] MEDS: ACETAMINOPHEN 325 MG TABLET PO SCH ×3 (12:23→23:59)
[2019-06-20] MEDS: OXYCODONE HCL IR 5 MG TABLET PO PRN (12:28)
[2019-06-20] MEDS ORDERED: NITROGLYCERIN 0.4 MG/TAB 25 TAB/BOTTLE SL PRN (13:28)
[2019-06-20] MEDS ORDERED: TRAMADOL HCL 50 MG TABLET PO PRN (13:28)
[2019-06-20] MEDS ORDERED: SIMETHICONE PO PRN (13:28)
[2019-06-20] MEDS ORDERED: LOPERAMIDE HCL PO PRN (13:28)
[2019-06-20] MEDS ORDERED: [UNRECOGNIZED DRUG - OTHER] PO PRN (13:28)
[2019-06-20] MEDS ORDERED: CEFAZOLIN SODIUM 2 GM in DEXTROSE 5%-WATER 100 ML IV SCH (14:00)
[2019-06-20] MEDS: HEPARIN SOD (PORCINE) 5,000 UNIT/ML 1 ML VIAL SUBCUT SCH ×2 (14:04→21:28)
--- NOTE | 2019-06-20 14:41 | XCELERA REPORT ---
[address] [address] Transthoracic Echocardiogram Report Name: TATO ROBLES Age: 68 yrs Gender: Female : 1950 Patient Status: Inpatient Patient Location: [place] [address]^A Study Date: 06/20/2019 12:24 PM Height: 64 in Weight: 152 lb BSA: 1.7 m2 Procedure: A complete two-dimensional transthoracic echocardiogram was performed (2D, M-mode, spectral and color flow Doppler). Study Quality: Technically suboptimal. Reason For Study: Preop, CAD Ordering Physician: CHIRAG CASTORENA Performed By: Lavonne Boyce Interpretation Summary The left ventricle is normal in size, thickness and function. Left ventricular systolic function is normal. LV EF is 60%. Doppler measurements suggest normal left ventricular diastolic function. No gross regional wall motion abnormalities. There is no thrombus. Mild MAC without stenosis. Trace to mild TR. Small, hemodynamically insignificant anterior and apical pericardial effusion. No prior studies for comparison. MMode/2D Measurements & Calculations RVDd: 2.2 cm LVIDd: 4.6 cm FS: 29.5 % Ao root diam: 2.4 cm IVSd: 1.1 cm LVIDs: 3.2 cm EDV(Teich): 96.3 ml Ao root area: 4.5 cm2 LVPWd: 0.83 cm ESV(Teich): 41.8 ml EF(Teich): 56.6 % Doppler Measurements & Calculations MV E max anselmo: MV dec slope: Ao V2 max: LV V1 max P.9 cm/sec 360.7 cm/sec2 127.9 cm/sec 5.0 mmHg MV A max anselmo: MV dec time: 0.25 secAo max PG: LV V1 max: 111.1 cm/sec 6.5 mmHg 111.7 cm/sec MV E/A: 0.83 PA V2 max: TR max anselmo: 84.0 cm/sec 222.1 cm/sec PA max P.8 mmHg TR max P.8 mmHg Left Ventricle The left ventricle is normal in size, thickness and function. Left ventricular systolic function is normal. LV EF is 60%. Doppler measurements suggest normal left ventricular diastolic function. No gross regional wall motion abnormalities. There is no thrombus. Right Ventricle The right ventricle is normal in size, thickness and function. The right ventricular systolic function is normal. Atria The right atrium is normal. The left atrial size is normal. The interatrial septum is intact with no evidence for an atrial septal defect. Mitral Valve Calcified mitral apparatus. There is no mitral valve stenosis. There is no mitral regurgitation noted. Aortic Valve The aortic valve is not well visualized secondary to technical limitations. There is no aortic valve stenosis. No aortic regurgitation is present. Tricuspid Valve The tricuspid is normal in structure and function. There is a trace to mild amount of tricuspid regurgitation. Pulmonic Valve The pulmonic valve is not well visualized. Effusions Small, hemodynamically insignificant anterior and apical pericardial effusion. : CHIRAG CASTORENA, Chirag
--- NOTE | 2019-06-20 16:14 | PDOC CONSULTATION ---
Consultation Consult Date: 06/20/19 Attending physician:: BEATRIS RUCKER JR Provider Consulted: TENISHA RIVAS Consult reason:: PreoperativeMedical clearance History of Present Illness Admission Date/PCP: 06/20/19 10:48 TENISHA RIVAS MD Patient complains of: Fall right shoulder pain and humerus fracture History of Present Illness: TATO ROBLES is a 68 year old female This is a 68-year-old female not since more than a year in office with a history of the type 2 diabetes with the last A1c was 6.1 in office more than a year back history of the hypertensionHistory of the hyperlipidemia history of the frequent fall history of the coronary artery disease status post stent placement history of the depressions anxiety disorder and a history of the significant arthritis currently see her Dr. Echeverria and multiple other comorbidity Came to the e mergency department with a complaint of right shoulder pain status post fall from mechanical trip and patient was found to be right humerus fracture. Patient is admitting for the orthopedic surgery Patient is having no chest pain no short of breath no dizziness no syncopal episodes Patient is currently see a Dr. Castorena cardiology regularly and also see Dr. Griffin nephrologyCan usually get the medications from them and also see a psych Patient seen by the junior paralegal and stable echocardiogram and cleared for the surgery Patient's chest x-ray is all stable patient's creatinine is at baseline Patient is currently on a Lovenox for the DVT prophylaxis Patient is currently have a pain control through the orthopedic surgery Review the office records last seen in May 2018 A1c was 6.1 other blood work was all stable Reviewed the patient's medications Past Medical History Cardiac Medical History: Reports: Coronary Artery Disease, Myocardial Infarcti on, Hyperlipidema, Hypertension Pulmonary Medical History: Reports: Asthma Neurological Medical History: Denies: Seizures Endocrine Medical History: Reports: Diabetes Mellitus Type 2 Renal/ Medical History: Reports: Chronic Kidney Disease GI Medical History: Reports: Hiatal Hernia Denies: Hepatitis Musculoskeltal Medical History: Reports: Gout Psychiatric Medical History: Reports: Depression Hematology: Reports: Anemia Denies: Sickle Cell Disease Past Surgical History Past Surgical History: Reports: Cardiac Catheterization, Hysterectomy, Orthopedic Surgery, Tonsillectomy Denies: Amputation, Mastectomy, Pacemaker Social History Information Source: Patient Lives with: Alone Smoking Status: Former Smoker Electronic Cigarette use?: No Last Time Smoked: 01/19/1972 Frequency of Alcohol Use: None Hx Recreational Drug Use: No Hx Prescription Drug Abuse: No Family History Family History: Reviewed & Not Pertinent Parental Family History Reviewed: Yes Children Family History Reviewed: Yes Sibling(s) Family History Reviewed.: Yes Medication/Allergy Home Medications: Aspirin [Aspirin EC] 81 mg PO DAILY 07/25/13 Loratadine [Claritin 10 mg Tablet] 10 mg PO DAILY 07/25/13 Rosuvastatin Calcium [Crestor 20 mg Tablet] 20 mg PO DAILY 07/25/13 Alprazolam [Xanax] 2 mg PO TID 07/19/18 Isosorbide Mononitrate [Imdur 30 mg Tablet.er] 30 mg PO DAILY 07/19/18 Ranolazine [Ranexa] 1,000 mg PO BID 07/19/18 Sertraline HCl [Zoloft] 200 mg PO DAILY 07/19/18 Biotin 10,000 mcg PO DAILY 06/20/19 Calcitriol [Rocaltrol] 0.25 mcg PO MOWEFR@1000 06/20/19 Magnesium Oxide [Mag-Ox 400 mg Tablet] 400 mg PO DAILY 06/20/19 Nitroglycerin [Nitrostat 0.4 mg (1/150 Gr) Tabs 25/Bottle] 1 tab SL Q5MP PRN 06/20/19 Tramadol HCl [Ultram 50 mg Tablet] 50 mg PO Q4HP PRN 06/20/19 Allergies/Adverse Reactions: Beta-Blockers (Beta-Adrenergic Bloc Allergy (Verified 06/20/19 09:57) Iodinated Contrast Media [IV Dye, Iodine Containing] Allergy (Verified 06/20/19 09:57) Review of Systems Constitutional: ABSENT: chills, fever(s), headache(s), weight gain, weight loss Eyes: ABSENT: visual disturbances Ears: ABSENT: hearing changes Cardiovascular: ABSENT: chest pain, dyspnea on exertion, edema, orthropnea, palpitations Respiratory: ABSENT: cough, hemoptysis Gastrointestinal: ABSENT: abdominal pain, constipation, diarrhea, hematemesis, hematochezia, nausea, vomiting Genitourinary: ABSENT: dysuria, hematuria Musculoskeletal: ABSENT: joint swelling Integumentary: ABSENT: rash, wounds Neurological: ABSENT: abnormal gait, abnormal speech, confusion, dizziness, focal weakness, syncope Psychiatric: ABSENT: anxiety, depression, homidical ideation, suicidal ideation Endocrine: ABSENT: cold intolerance, heat intolerance, menstrual abnormalities, polydipsia, polyuria Hematologic/Lymphatic: ABSENT: easy bleeding, easy bruising, lymphadenopathy Physical Exam Vital Signs: Temp Pulse Resp BP Pulse Ox 98.0 F 76 9 L 108/75 100 06/20/19 08:19 06/20/19 08:19 06/20/19 13:03 06/20/19 13:03 06/20/19 13:03 Intake & Output 06/19/19 06/20/19 06/21/19 06:59 06:59 06:59 Weight 69.3 kg General appearance: PRESENT: no acute distress, well-developed, well-nourished Head exam: PRESENT: atraumatic, normocephalic Eye exam: PRESENT: conjunctiva pink, EOMI, PERRLA. ABSENT: scleral icterus Ear exam: PRESENT: normal external ear exam Mouth exam: PRESENT: moist, tongue midline Neck exam: PRESENT: full ROM. ABSENT: carotid bruit, JVD, lymphadenopathy, thyromegaly Respiratory exam: PRESENT: clear to auscultation lars Cardiovascular exam: PRESENT: RRR. ABSENT: diastolic murmur, rubs, systolic murmur Pulses: PRESENT: normal dorsalis pedis pul, +2 pedal pulses bilateral Vascular exam: PRESENT: normal capillary refill GI/Abdominal exam: PRESENT: normal bowel sounds, soft. ABSENT: distended, guarding, mass, organolmegaly, rebound, tenderness Rectal exam: PRESENT: deferred Extremities exam: ABSENT: pedal edema Additional comments: Right lower extremity immobilization is present Neurological exam: PRESENT: alert, awake, oriented to person, oriented to place, oriented to time, oriented to situation. ABSENT: motor sensory deficit Psychiatric exam: PRESENT: appropriate affect, normal mood. ABSENT: homicidal ideation, suicidal ideation Skin exam: PRESENT: dry, intact, warm. ABSENT: cyanosis, rash Results Laboratory Results: 06/20/19 09:01 06/20/19 09:01 06/20/19 06/20/19 09:01 09:01 WBC 11.0 H RBC 3.41 L Hgb 11.0 L Hct 32.6 L MCV 96 MCH 32.2 MCHC 33.7 RDW 15.1 H Plt Count 166 Seg Neutrophils % 77.6 Sodium 139.3 Potassium 4.5 Chloride 106 Carbon Dioxide 23 Anion Gap 10 BUN 37 H Creatinine 2.19 H Est GFR ( Amer) 27 L Glucose 223 H Calcium 9.1 Total Bilirubin 0.3 AST 21 Alkaline Phosphatase 100 Total Protein 6.9 Albumin 4.1 Impressions: Elbow X-Ray 06/20/19 00:00 IMPRESSION: Very limited single oblique view of the right elbow, no gross fracture or malalignment Knee X-Ray 06/20/19 00:00 IMPRESSION: SUBACUTE TRANSVERSE FRACTURE OF THE PATELLA. MINIMAL STABLE DISTRACTION OF PATELLAR FRAGMENTS. NO GROSS BONY BRIDGING CALLUS Shoulder X-Ray 06/20/19 00:00 IMPRESSION: Acute spiral fracture proximal right humeral diaphysis with mild valgus angulation Chest X-Ray 06/20/19 08:55 IMPRESSION: Right proximal humerus fracture. No acute cardiopulmonary changes Assessment & Plan - Diagnosis (1) Accidental fall Qualifiers: Encounter type: initial encounter Qualified Code(s): W19.XXXA - Unspecified fall, initial encounter Is this a current diagnosis for this admission?: Yes Plan: Currently follow with the orthopedic (2) Hypertension Qualifiers: Hypertension type: essential hypertension Qualified Code(s): I10 - Essential (primary) hypertension Is this a current diagnosis for this admission?: Yes Plan: Currently all stable (3) Lupus Is this a current diagnosis for this admission?: Yes Plan: Patient is currently see Dr. Echeverria does not require any medications (4) Chronic kidney disease Qualifiers: Chronic kidney disease stage: stage 3 (moderate) Qualified Code(s): N18.3 - Chronic kidney disease, stage 3 (moderate) Is this a current diagnosis for this admission?: Yes Plan: Patient is currently see Dr. ayala Currently all stable (5) Coronary artery disease Qualifiers: Associated angina: with stable angina Is this a current diagnosis for this admission?: Yes Plan: Since seen by Dr. Castorena (6) Diabetes Qualifiers: Diabetes mellitus type: type 2 Chronic kidney disease stage: stage 3 (moderate) Is this a current diagnosis for this admission?: Yes Plan: We will check the patient hemoglobin A1c per sliding scale with [facility] protocol (7) Fracture of humeral shaft, right, closed Qualifiers: Encounter type: initial encounter Is this a current diagnosis for this admission?: Yes Plan: Patient is currently medically stable for the surgery (8) Patellar sleeve fracture of right knee Is this a current diagnosis for this admission?: Yes - Time Time Spent: 30 to 50 Minutes Medications reviewed and adjusted accordingly: Yes Anticipated discharge: SNF Within: Other - Inpatient Certification Based on my medical assessment, after consideration of the patient's comorbidities, presenting symptoms, or acuity I expect that the services needed warrant INPATIENT care.: Yes I certify that my determination is in accordance with my understanding of [employer] 's requirements for reasonable and necessary INPATIENT services [42 CFR 412.3e].: Yes Medical Necessity: Failure to Improve With Outpatient Therapy, Significant Comorbidiites Make Outpatient Treatment Too Risky, Need Close Monitoring Due to Risk of Patient Decompensation, Need for Pain Control Post Hospital Care: D/C Mail Technician Documentation - Plan Summary Plan Summary: Patient is currently medically stable for the surgery Continues a sliding scale with [facility] protocol Consult the nephrology with a significant chronic kidney disease Continues to monitor the patient Continues to DVT prophylaxis per the surgey Patient have a frequent history of the fall Fall precautions
[2019-06-20 16:30] LABS: APPEARANCE,URINE CLEAR; BILIRUBIN,URINE NEGATIVE (NEGATIVE); COLOR,URINE YELLOW; GLUCOSE, URINE >=500 mg/dL (NEGATIVE); KETONES,URINE NEGATIVE (NEGATIVE); LEUKOCYTE ESTERASE,URINE SMALL (NEGATIVE); NITRITE,URINE NEGATIVE (NEGATIVE); PROTEIN,URINE NEGATIVE (NEGATIVE); URINE SPECIFIC GRAVITY 1.018; UROBILINOGEN,URINE NEGATIVE mg/dL (<2.0)
[2019-06-20] MEDS ORDERED: GLUCAGON,HUMAN RECOMB 1 MG INJ IM PRN (16:30)
[2019-06-20] MEDS ORDERED: DEXTROSE 50%-WATER SYRINGE 12.5 GM/25 ML DOSE IV PRN (16:30)
[2019-06-20] MEDS ORDERED: DEXTROSE 40% GEL 15 GM TUBE X 2 PO PRN (16:30)
[2019-06-20] MEDS ORDERED: DEXTROSE 40% GEL 15 GM TUBE PO PRN (16:30)
[2019-06-20] MEDS ORDERED: DEXTROSE 50%-WATER SYRINGE 25 GM/50 ML DOSE IV PRN (16:30)
[2019-06-20] MEDS ORDERED: ALPRAZOLAM 0.5 MG TABLET PO PRN (17:10)
[2019-06-20] MEDS ORDERED: NORMAL SALINE 1000 ML 1,000 ML IV ONE (17:20)
--- NOTE | 2019-06-20 17:44 | PDOC CONSULTATION ---
Consultation Consult Date: 06/20/19 Provider Consulted: MUSA ZUNIGA Consult reason:: CKD monitoring peioperatively History of Present Illness Admission Date/PCP: 06/20/19 10:48 TENISHA LOPEZ MD History of Present Illness: TATO ROBELS is a 68 year old lady known to me with history of chronic kidney disease stage III-IV, diabetes mellitus type 2, hypertension and coronary artery disease who was admitted today after a fall. Patient states that last June 03 she fell and sustained of patellar sleeve fracture of the right knee, minimally displaced and was placed on knee immobilizer. Unfortunately this morning she fell again in a hole in her lawn. She said something she knew something is wrong because she started having pain in her right shoulder and she cannot move it. She continues to have pain in her right knee. She denies any other complaints. She does have chronic diarrhea intermittently. She denies any nausea nor vomiting. She denies any fever, cough no recent travel. On admission today she had a BUN of 37 with creatinine of 2.19. Her baseline creatinine ranges anywhere between 1.5-1.8. Her urinalysis is negative for protein or blood but has glucosuria. Past Medical History Cardiac Medical History: Reports: CHF-Systolic, Coronary Artery Disease, Hyperlipidemia, Myocardial Infarction, Other - Orthostatic hypotension Pulmonary Medical History: Reports: Asthma Neurological Medical History: Reports: Ischemic CVA Endocrine Medical History: Reports: Diabetes Mellitus Type 2, Hypothyroidism Renal/ Medical History: Reports: Chronic Kidney Disease Stage III, Nephrolithiasis GI Medical History: Reports: Diverticulitis, Hiatal Hernia, Other - Chronic intermittent diarrhea Musculoskeltal Medical History: Reports: Arthritis, Gout, Systemic Lupus Erythematosus Psychiatric Medical History: Reports: Depression, General Anxiety Disorder Hematology Medical History: Reports Anemia of Chronic Kidney Disease Past Surgical History Past Surgical History: Reports: Cardiac Catheterization, Hysterectomy, Orthopedic Surgery - ORIF left ankle in 2005, Tonsillectomy Social History Information Source: Patient Lives with: Alone Smoking Status: Former Smoker Electronic Cigarette use?: No Last Time Smoked: 01/19/1972 Frequency of Alcohol Use: None Hx Recreational Drug Use: No Hx Prescription Drug Abuse: No Family History Family History: CAD - Father, CVA - Mother, DM - Mother, Hypertension - Mother Parental Family History Reviewed: Yes Children Family History Reviewed: Yes Sibling(s) Family History Reviewed.: Yes Medication/Allergy Home Medications: Aspirin [Aspirin EC] 81 mg PO DAILY 07/25/13 Loratadine [Claritin 10 mg Tablet] 10 mg PO DAILY 07/25/13 Rosuvastatin Calcium [Crestor 20 mg Tablet] 20 mg PO DAILY 07/25/13 Alprazolam [Xanax] 2 mg PO TID 07/19/18 Isosorbide Mononitrate [Imdur 30 mg Tablet.er] 30 mg PO DAILY 07/19/18 Ranolazine [Ranexa] 1,000 mg PO BID 07/19/18 Sertraline HCl [Zoloft] 200 mg PO DAILY 07/19/18 Biotin 10,000 mcg PO DAILY 06/20/19 Calcitriol [Rocaltrol] 0.25 mcg PO MOWEFR@1000 06/20/19 Magnesium Oxide [Mag-Ox 400 mg Tablet] 400 mg PO DAILY 06/20/19 Nitroglycerin [Nitrostat 0.4 mg (1/150 Gr) Tabs 25/Bottle] 1 tab SL Q5MP PRN 06/20/19 Tramadol HCl [Ultram 50 mg Tablet] 50 mg PO Q4HP PRN 06/20/19 Allergies/Adverse Reactions: Beta-Blockers (Beta-Adrenergic Bloc Allergy (Verified 06/20/19 09:57) Iodinated Contrast Media [IV Dye, Iodine Containing] Allergy (Verified 06/20/19 09:57) Review of Systems All systems: reviewed and no additional remarkable complaints except as stated Review of Systems: Constitutional: ABSENT: chills, fatigue, fever(s), headache(s), weight gain, weight loss Eyes: ABSENT: visual disturbances Ears: ABSENT: hearing changes Cardiovascular: ABSENT: chest pain, dyspnea on exertion, edema, orthropnea, palpitations Respiratory: ABSENT: cough, dyspnea, hemoptysis Gastrointestinal: ABSENT: abdominal pain, constipation, hematemesis, hematochezia, nausea, vomiting; reports chronic intermittent diarrhea Genitourinary: ABSENT: dysuria, hematuria Musculoskeletal: ABSENT: joint swelling; positive right shoulder and right knee pain Integumentary: ABSENT: rash, wounds Neurological: ABSENT: abnormal gait, abnormal speech, confusion, dizziness, focal weakness, numbness, syncope Psychiatric: ABSENT: anxiety, depression Endocrine: ABSENT: cold intolerance, heat intolerance, polydipsia, polyuria Hematologic/Lymphatic: ABSENT: easy bleeding, easy bruising, lymphadenopathy Physical Exam Vital Signs: Temp Pulse Resp BP Pulse Ox 98.2 F 75 20 103/66 100 06/20/19 14:46 06/20/19 14:46 06/20/19 14:46 06/20/19 14:46 06/20/19 14:46 Intake & Output 06/19/19 06/20/19 06/21/19 06:59 06:59 06:59 Weight 69.3 kg Exam: General appearance: No acute distress, cooperative, well-developed, well- nourished Head exam: PRESENT: atraumatic, normocephalic Eye exam: PRESENT: Conjunctiva Trosky, EOMI, PERRLA. ABSENT: conjunctival injection, scleral icterus Mouth exam: PRESENT: moist, neck supple, tongue midline Neck exam: PRESENT: full ROM. ABSENT: carotid bruit, JVD, lymphadenopathy, thyromegaly Respiratory exam: PRESENT: clear to auscultation bilaterally. ABSENT: rales, rhonchi, stridor, wheezes Cardiovascular exam: PRESENT: RRR, +S1, +S2. ABSENT: systolic murmur Pulses: PRESENT: normal radial pulses, normal dorsalis pedis pulses GI/Abdominal exam: PRESENT: normal bowel sounds, soft. ABSENT: guarding, mass, tenderness Rectal exam: Deferred Extremities exam: PRESENT: full ROM. ABSENT: calf tenderness, pedal edema Musculoskeletal: PRESENT: Right shoulder immobilized with a sling. Right knee with knee immobilizer. ABSENT: deformity Neurological exam: PRESENT: alert, Awake, Oriented to person, Oriented to place, Oriented to time, reflexes normal, CN II-XII grossly intact. ABSENT: motor sen denys deficit Psychiatric exam: PRESENT: appropriate affect, normal mood. ABSENT: homicidal ideation, suicidal ideation Skin exam: PRESENT: intact, dry, warm. ABSENT: rash Results Laboratory Results: 06/20/19 09:01 06/20/19 09:01 06/20/19 06/20/19 06/20/19 09:01 09:01 15:45 WBC 11.0 H RBC 3.41 L Hgb 11.0 L Hct 32.6 L MCV 96 MCH 32.2 MCHC 33.7 RDW 15.1 H Plt Count 166 Seg Neutrophils % 77.6 Sodium 139.3 Potassium 4.5 Chloride 106 Carbon Dioxide 23 Anion Gap 10 BUN 37 H Creatinine 2.19 H Est GFR ( Amer) 27 L Glucose 223 H Calcium 9.1 Total Bilirubin 0.3 AST 21 Alkaline Phosphatase 100 Total Protein 6.9 Albumin 4.1 Urine Color YELLOW Urine Appearance CLEAR Urine pH 5.0 Ur Specific [place] 1.018 Urine Protein NEGATIVE Urine Glucose (UA) >=500 H Urine Ketones NEGATIVE Urine Blood NEGATIVE Urine Nitrite NEGATIVE Ur Leukocyte Esterase SMALL H Urine WBC (Auto) 8 Urine RBC (Auto) 1 Impressions: Elbow X-Ray 06/20/19 00:00 IMPRESSION: Very limited single oblique view of the right elbow, no gross fracture or malalignment Knee X-Ray 06/20/19 00:00 IMPRESSION: SUBACUTE TRANSVERSE FRACTURE OF THE PATELLA. MINIMAL STABLE DISTRACTION OF PATELLAR FRAGMENTS. NO GROSS BONY BRIDGING CALLUS Shoulder X-Ray 06/20/19 00:00 IMPRESSION: Acute spiral fracture proximal right humeral diaphysis with mild valgus angulation Chest X-Ray 06/20/19 08:55 IMPRESSION: Right proximal humerus fracture. No acute cardiopulmonary changes Assessment & Plan - Diagnosis (1) Chronic kidney disease, stage 3 Is this a current diagnosis for this admission?: Yes Plan: Patient's baseline creatinine ranges anywhere between 1.5-1.8 and a steady state. Current creatinine is mildly elevated than baseline. He could be due to acute pre-renal factors. To optimize patient's condition prior to possible surgery, I will give the patient gentle IV fluid hydration with 1 L of normal saline at 75 mL /hour. Monitor kidney function postoperatively. Maintain euvolemia and normotension. Patient does have a tendency for orthostatic hypotension and needs to be monitored. Avoid nephrotoxic medications. Adjust any medications including antibiotics accordingly per kidney function. I will decrease the cefazolin to q12 hours. Needs to be careful with pain medications to avoid overmedicating in a patient with chronic kidney disease. (2) Fracture of humeral shaft, right, closed Qualifiers: Encounter type: initial encounter Is this a current diagnosis for this admission?: Yes (3) Patellar sleeve fracture of right knee Is this a current diagnosis for this admission?: Yes (4) Anemia in chronic kidney disease (CKD) Is this a current diagnosis for this admission?: Yes Plan: Mild. Monitor for now. (5) Coronary artery disease Qualifiers: Associated angina: with stable angina Is this a current diagnosis for this admission?: Yes Plan: Cardiology has been consulted. (6) Diabetes Qualifiers: Diabetes mellitus type: type 2 Chronic kidney disease stage: stage 3 (moderate) Is this a current diagnosis for this admission?: Yes Plan: Defer to Dr. Lopez. - Notes Notes: Thank you very much for this consultation. After today, Dr. Adams will be in nephrology service. - Time Time Spent: 50 to 70 Minutes
[2019-06-20] MEDS ORDERED: ALPRAZOLAM 0.5 MG TABLET PO SCH (18:00)
[2019-06-20] MEDS ORDERED: (PENDING PHARMACY ID) (Ranolazine [Ranexa] 1,000 MG) PO SCH (18:00)
[2019-06-20] MEDS: RANOLAZINE 500 MG TAB.SR.12H PO SCH (18:06)
[2019-06-20] MEDS: CEFAZOLIN SODIUM 2 GM in DEXTROSE 5%-WATER 100 ML IV SCH (18:34)
[2019-06-20] MEDS: ATORVASTATIN CALCIUM 40 MG TABLET PO SCH (21:23)
[2019-06-20] MEDS: ZOLPIDEM TARTRATE 5 MG TABLET PO SCH (21:23)
[2019-06-20] MEDS: INSULIN LISPRO 100 UNIT/ML 3 ML VIAL SUBCUT SCH ×2 (21:26→23:59)
[2019-06-21 05:06] LABS: ABSOLUTE EOSINOPHILS # (AUTO) 0.1 10^3/uL (0.0-0.6); ABSOLUTE LYMPHOCYTES (AUTO) 1.3 10^3/uL (0.5-4.7); ABSOLUTE MONOCYTES (AUTO) 0.7 10^3/uL (0.1-1.4); ABSOLUTE NEUT (AUTO) 5.3 10^3/uL (1.7-8.2); BASOPHILS % (AUTO) 0.5 % (0-2); EOSINOPHILS % (AUTO) 1.9 % (0-6); HEMOGLOBIN 10.8 g/dL (12.0-15.5); LYMPHOCYTES % (AUTO) 17.8 % (13-45); MEAN CORPUSCULAR HEMOGLOBIN 32.2 pg (27.0-33.4); MEAN CORPUSCULAR HGB CONC 33.8 g/dL (32.0-36.0); MEAN CORPUSCULAR VOLUME 96 fl (80-97); MONOCYTES % (AUTO) 8.7 % (3-13); PLATELET COUNT 172 10^3/uL (150-450); RED BLOOD COUNT 3.35 10^6/uL (3.72-5.28); RED CELL DISTRIBUTION WIDTH 14.7 % (11.5-14.0); SEGMENTED NEUTROPHILS % (AUTO) 71.1 % (42-78); TOTAL CELLS COUNTED % (AUTO) 100 %; WHITE BLOOD COUNT 7.5 10^3/uL (4.0-10.5)
[2019-06-21 05:20] LABS: ANION GAP 9 (5-19); BLOOD UREA NITROGEN 25 mg/dL (7-20); CALCIUM 8.7 mg/dL (8.4-10.2); CARBON DIOXIDE 21 mmol/L (22-30); CHLORIDE 107 mmol/L (98-107); GLUCOSE 171 mg/dL (75-110); POTASSIUM 4.7 mmol/L (3.6-5.0)
[2019-06-21] MEDS: CEFAZOLIN SODIUM 2 GM in DEXTROSE 5%-WATER 100 ML IV SCH (05:52)
[2019-06-21] MEDS: HEPARIN SOD (PORCINE) 5,000 UNIT/ML 1 ML VIAL SUBCUT SCH ×3 (05:55→21:25)
[2019-06-21] MEDS: PANTOPRAZOLE SODIUM 20 MG TABLET.DR PO SCH (05:56)
[2019-06-21] MEDS: ACETAMINOPHEN 325 MG TABLET PO SCH ×3 (05:57→17:35)
[2019-06-21] MEDS: INSULIN LISPRO 100 UNIT/ML 3 ML VIAL SUBCUT SCH ×3 (06:42→17:35)
[2019-06-21] MEDS: MORPHINE SULFATE 10 MG/ML INJ IV PRN (06:47)
--- NOTE | 2019-06-21 08:48 | PDOC PROGRESS REPORT ---
Subjective Progress Note for:: 06/21/19 Subjective:: TATO ROBLES is a 68 year old female with history of coronary artery disease status post stenting to the RCA and the left circumflex in 2011 and another s tent to the left circumflex in 2012, PCI to the LAD on 06/21/16 with atherectomy of the mid LAD and balloon angioplasty of ostium of D2 with implantation of a CORRY, chronic stable angina, allergic to beta blockers, hypertension, hyperlipidemia, peripheral vascular disease with moderate carotid artery disease who is consulted to our service for preoperative evaluation. The patient had been doing well from the cardiovascular standpoint since her last evaluation in my office in September 2018. She specifically denies chest pain, shortness of breath, OCHOA, PND, lower extremity edema, palpitations, syncope and presyncope. She specifically denies recurrence of angina on her current medical management. Unfortunately she fell and broke her right arm and need surgery. 06/21/2019: The patient is found sitting at the bedside without any cardiovascular complaints. She is actually cheerful and awaiting orthopedic surgery. She specifically denies chest pain, shortness of breath, OCHOA, PND, lower extremity edema, palpitations, syncope and presyncope. Physical exam on 06/21/2019: GENERAL: Pleasant and conversational. Oriented x3 with normal mood. Not in acute distress. Well groomed and well developed. HEENT: Normocephalic, atraumatic. Pupils equal. Sclerae anicteric. Oropharynx moist. NECK: No JVD. No carotid bruits. LUNGS: Clear to auscultation bilaterally. Normal respiratory effort without the use of accessory muscles or intercostal retractions. CARDIOVASCULAR: Regular rate and rhythm, normal S1 and S2 without murmurs, rubs, or gallops. PMI not displaced. EXTREMITIES: No edema, no cyanosis, no clubbing. +2 pulses femoral and pedal pulses bilaterally. SKIN: No lesions or rashes. MUSCULOSKELETAL: No chest tenderness to palpation. NEUROLOGIC: Nonfocal. No gross sensory or motor deficits bilateral upper or lower extremities. Cardiac studies: PCI on 06/21/16: -90% calcific mid LAD bifurcation lesion--> orbital atherectomy followed by stenting with a 2.5 mm x 18 mm Xience CORRY. -Residual 60-70% ostial D2 felt to be secondary to spasm and to be treated m edically at this time. -Proximal 40% eccentric calcified proximal LAD stenoses to be treated medically. [facility] [place] on 06/02/16: -Left main: Widely patent. -LAD: Significant calcification proximally with luminal irregularities. Eccentric 50-60% lesion at the bifurcation of the diagonal vessel--> hemodynami maddie significant by FFR. -D1: Large vessel, widely patent. -Left circumflex: Large vessel then noted in the mid vessel at the bifurcation of the OM which have minimal in-stent restenosis. -OM: Large vessel. What patent. -RCA: Diffusely stented proximal to me vessel with mild in-stent restenosis. 40- 50% ostial stenosis--> hemodynamically insignificant by FFR. The stent in the ongoing vessel is widely patent. -LV gram: EF greater than 55%, no MR, no aortic stenosis. EKG on 03/23/16: Normal sinus rhythm, normal EKG. Lexiscan nuclear stress test on 07/04/13: -No evidence of scar/myocardial infarction by scintigraphy. -No induced myocardial ischemia by scintigraphy. -LVEF 61%. Echocardiogram on 03/27/15: -The left ventricle is normal in size. -Ejection fraction 60-65%. -Left ventricular wall motion is normal. -Trace TR. Reason For Visit: RIGHT HUMERAL SHAFT FRACTURE Physical Exam Vital Signs: Temp Pulse Resp BP Pulse Ox 97.9 F 80 18 96/64 L 100 06/20/19 23:06 06/20/19 23:06 06/20/19 23:06 06/20/19 23:06 06/20/19 23:06 Intake & Output 06/20/19 06/21/19 06/22/19 06:59 06:59 06:59 Intake Total 520 Output Total 1100 Balance -580 Weight 69.3 kg Results Laboratory Results: 06/21/19 04:46 06/21/19 04:46 06/20/19 06/20/19 06/20/19 09:01 09:01 15:45 WBC 11.0 H RBC 3.41 L Hgb 11.0 L Hct 32.6 L MCV 96 MCH 32.2 MCHC 33.7 RDW 15.1 H Plt Count 166 Seg Neutrophils % 77.6 Sodium 139.3 Potassium 4.5 Chloride 106 Carbon Dioxide 23 Anion Gap 10 BUN 37 H Creatinine 2.19 H Est GFR ( Amer) 27 L Glucose 223 H Calcium 9.1 Total Bilirubin 0.3 AST 21 Alkaline Phosphatase 100 Total Protein 6.9 Albumin 4.1 Urine Color YELLOW Urine Appearance CLEAR Urine pH 5.0 Ur Specific [place] 1.018 Urine Protein NEGATIVE Urine Glucose (UA) >=500 H Urine Ketones NEGATIVE Urine Blood NEGATIVE Urine Nitrite NEGATIVE Ur Leukocyte Esterase SMALL H Urine WBC (Auto) 8 Urine RBC (Auto) 1 06/21/19 06/21/19 04:46 04:46 WBC 7.5 RBC 3.35 L Hgb 10.8 L Hct 32.0 L MCV 96 MCH 32.2 MCHC 33.8 RDW 14.7 H Plt Count 172 Seg Neutrophils % 71.1 Sodium 137.2 Potassium 4.7 Chloride 107 Carbon Dioxide 21 L Anion Gap 9 BUN 25 H Creatinine 1.76 H Est GFR ( Amer) 35 L Glucose 171 H Calcium 8.7 Total Bilirubin AST Alkaline Phosphatase Total Protein Albumin Urine Color Urine Appearance Urine pH Ur Specific [place] Urine Protein Urine Glucose (UA) Urine Ketones Urine Blood Urine Nitrite Ur Leukocyte Esterase Urine WBC (Auto) Urine RBC (Auto) Impressions: Elbow X-Ray 06/20/19 00:00 IMPRESSION: Very limited single oblique view of the right elbow, no gross fracture or malalignment Knee X-Ray 06/20/19 00:00 IMPRESSION: SUBACUTE TRANSVERSE FRACTURE OF THE PATELLA. MINIMAL STABLE DISTRACTION OF PATELLAR FRAGMENTS. NO GROSS BONY BRIDGING CALLUS Shoulder X-Ray 06/20/19 00:00 IMPRESSION: Acute spiral fracture proximal right humeral diaphysis with mild valgus angulation Chest X-Ray 06/20/19 08:55 IMPRESSION: Right proximal humerus fracture. No acute cardiopulmonary changes 06/21/19 04:46 06/21/19 04:46 MCV 96 fl (80-97) 06/21/19 04:46 MCH 32.2 pg (27.0-33.4) 06/21/19 04:46 MCHC 33.8 g/dL (32.0-36.0) 06/21/19 04:46 RDW 14.7 % (11.5-14.0) H 06/21/19 04:46 Seg Neutrophils % 71.1 % (42-78) 06/21/19 04:46 Chloride 107 mmol/L (98-107) 06/21/19 04:46 Carbon Dioxide 21 mmol/L (22-30) L 06/21/19 04:46 Anion Gap 9 (5-19) 06/21/19 04:46 Est GFR ( Amer) 35 (>60) L 06/21/19 04:46 Glucose 171 mg/dL (75-110) H 06/21/19 04:46 Calcium 8.7 mg/dL (8.4-10.2) 06/21/19 04:46 Total Bilirubin 0.3 mg/dL (0.2-1.3) 06/20/19 09:01 AST 21 U/L (14-36) 06/20/19 09:01 Alkaline Phosphatase 100 U/L (38-126) 06/20/19 09:01 Total Protein 6.9 g/dL (6.3-8.2) 06/20/19 09:01 Albumin 4.1 g/dL (3.5-5.0) 06/20/19 09:01 Urine Color YELLOW 06/20/19 15:45 Urine Appearance CLEAR 06/20/19 15:45 Urine pH 5.0 (5.0-9.0) 06/20/19 15:45 Ur Specific [place] 1.018 06/20/19 15:45 Urine Protein NEGATIVE mg/dL (NEGATIVE) 06/20/19 15:45 Urine Glucose (UA) >=500 mg/dL (NEGATIVE) H 06/20/19 15:45 Urine Ketones NEGATIVE mg/dL (NEGATIVE) 06/20/19 15:45 Urine Blood NEGATIVE (NEGATIVE) 06/20/19 15:45 Urine Nitrite NEGATIVE (NEGATIVE) 06/20/19 15:45 Ur Leukocyte Esterase SMALL (NEGATIVE) H 06/20/19 15:45 Urine WBC (Auto) 8 /HPF 06/20/19 15:45 Urine RBC (Auto) 1 /HPF 06/20/19 15:45 Current Medication List Generic Name Dose Route Start Last Admin Trade Name Freq PRN Reason Stop Dose Admin Acetaminophen 650 mg 06/20/19 12:00 06/21/19 05:57 Tylenol 325 Mg Tablet PO 07/20/19 11:59 Not Given Q6 DILSHAD Alprazolam 1 mg 06/20/19 17:10 Xanax 0.5 Mg Tablet PO 06/27/19 17:09 Q8HP PRN ANXIETY Aspirin 81 mg 06/21/19 10:00 Ecotrin 81 Mg Ec Tablet PO 07/21/19 09:59 DAILY [facility] Atorvastatin Calcium 40 mg 06/20/19 22:00 06/20/19 21:23 Lipitor 40 Mg Tablet PO 07/20/19 21:59 40 mg QHS [facility] Administration Calcitriol 0.25 mcg 06/21/19 10:00 Rocaltrol 0.25 Mcg Capsule PO 07/21/19 09:59 MOWEFR@1000 [facility] Dextrose 12.5 gm 06/20/19 16:30 Dextrose Inj 50% Syringe (25 Gm/50 Ml) IV 07/20/19 16:29 PRN PRN FOR BG 50-69 IN ALERT PATIENT Protocol Dextrose 25 gm 06/20/19 16:30 Dextrose Inj 50% Syringe (25 Gm/50 Ml) IV 07/20/19 16:29 PRN PRN Protocol Docusate Sodium 100 mg 06/21/19 10:00 Colace 100 Mg Capsule PO 07/21/19 09:59 DAILY [facility] Glucagon 1 mg 06/20/19 16:30 Glucagen Inj 1 Mg Vial IM 07/20/19 16:29 PRN PRN EVALUATE FOR BG < 70 Protocol Glucose 15 gm 06/20/19 16:30 Glutose 40% Gel 15 Gm Tube PO 07/20/19 16:29 PRN PRN FOR BG 50-69 IN ALERT PATIENT Protocol Glucose 30 gm 06/20/19 16:30 Glutose 40% Gel 15 Gm Tube PO 07/20/19 16:29 PRN PRN FOR BG < 50 IN ALERT PATIENT Protocol Heparin Sodium (Porcine) 5,000 unit 06/20/19 14:00 06/21/19 05:55 Heparin Inj 5,000 Units/Ml 1 Ml Vial SUBCUT 07/20/19 13:59 Not Given Q8 [facility] Insulin Human Lispro 0 - 12 unit 06/20/19 22:00 06/21/19 06:42 Humalog Insulin 100 Unit/1 Ml 3 Ml Vial SUBCUT 07/20/19 21:59 4 unit Q6 [facility] Administration Protocol Isosorbide Mononitrate 30 mg 06/21/19 10:00 Imdur 30 Mg Tablet.Er PO 07/21/19 09:59 DAILY [facility] Loratadine 10 mg 06/21/19 10:00 Claritin 10 Mg Tablet PO 07/21/19 09:59 DAILY [facility] Magnesium Hydroxide 30 ml 06/20/19 10:37 Milk Of Magnesia 30 Ml Udcup PO 07/20/19 10:36 HSP PRN FOR CONSTIPATION Magnesium Oxide 400 mg 06/21/19 10:00 Mag-Ox 400 Mg Tablet PO 07/21/19 09:59 DAILY [facility] Morphine Sulfate 2 mg 06/20/19 10:37 06/21/19 06:47 Morphine 10 Mg/Ml Inj IV 06/27/19 10:36 2 mg Q4HP PRN Administration PAIN SCALE OF 5 Nitroglycerin 1 tab 06/20/19 13:28 Nitrostat 0.4 Mg (1/150 Gr) Tabs 25/Bottle SL 07/20/19 13:27 Q5MP PRN PER PROTOCOL Ondansetron HCl 4 mg 06/20/19 10:49 Zofran Odt 4 Mg Tablet PO 07/20/19 10:48 Q4HP PRN FOR NAUSEA/VOMITING Oxycodone HCl 5 mg 06/20/19 11:22 06/20/19 12:28 Oxy-Ir 5 Mg Tablet PO 06/27/19 11:21 5 mg Q6HP PRN Administration PAIN SCALE OF 3 Pantoprazole Sodium 20 mg 06/21/19 06:00 06/21/19 05:[address] Tablet PO 07/21/19 05:59 Not Given Q6AM [facility] Patient Own Medication 10,000 mcg 06/21/19 10:00 Biotin [Biotin] PO 07/21/19 09:59 .DAILY [facility] Patient Own Medication 1 each 06/20/19 13:28 Loperamide Hcl/Simethicone [Imodium Multi-Symptom Rel Cplt] PO ASDIR PRN FOR CONSTIPATION Ranolazine 1,000 mg 06/20/19 18:00 06/20/19 18:06 Ranexa 500 Mg Tab.Sr PO 07/20/19 17:59 1,000 mg BID DILSHAD Administration Sertraline HCl 200 mg 06/21/19 10:00 Zoloft 50 Mg Tablet PO 07/21/19 09:59 DAILY [facility] Sodium Chloride 2.5 ml 06/20/19 14:00 06/21/19 05:57 Saline Flush 2.5 Ml Monoject Prefil Syrin IV 07/20/19 13:59 Not Given Q8 DILSHAD Tramadol HCl 50 mg 06/20/19 13:28 Ultram 50 Mg Tablet PO 06/27/19 13:27 Q4HP PRN FOR PAIN SCALE 1-2 Zolpidem Tartrate 5 mg 06/20/19 22:00 06/20/19 21:23 Ambien 5 Mg Tablet PO 06/27/19 21:59 5 mg QHS D[facility] Administration Discontinued Medications Generic Name Dose Route Start Last Admin Trade Name Freq PRN Reason Stop Dose Admin Alprazolam 2 mg 06/20/19 18:00 Xanax 0.5 Mg Tablet PO 06/27/19 17:59 TID DILSHAD Cefazolin Sodium 2 gm/ 100 mls @ 100 mls/hr 06/20/19 14:00 06/20/19 15:05 Dextrose IV 06/21/19 06:59 Infused Q8 [facility] Infusion Sodium Chloride 1,000 mls @ 75 mls/hr 06/20/19 17:20 06/20/19 18:05 Nacl 0.9% 1000 Ml Iv Soln IV 06/21/19 06:39 75 mls/hr X 1 BAG ONE Administration Cefazolin Sodium 2 gm/ 100 mls @ 100 mls/hr 06/20/19 19:00 06/21/19 05:52 Dextrose IV 06/21/19 06:59 100 ml/hr Q12A DILSHAD 100 mls/hr Administration Morphine Sulfate 4 mg 06/20/19 09:16 06/20/19 09:21 Morphine 10 Mg/Ml Inj IV 06/20/19 09:17 4 mg NOW ONE Administration Ondansetron HCl 4 mg 06/20/19 09:16 06/20/19 09:21 Zofran Inj/Pf 4 Mg/2 Ml Sdv IV 06/20/19 09:17 4 mg NOW ONE Administration Assessment & Plan - Diagnosis (1) Preop cardiovascular exam Is this a current diagnosis for this admission?: Yes Plan: The patient continues to be hemodynamically stable and ischemic symptoms since her last evaluation in my office in September 2018 and since admission. She is on GDMT except for a beta-kevin due to perceived side effects. Her cardiovascular exam is normal today as well as her vital signs. At this point she is cardiovascularly optimized prior to this necessary surgery therefore no further invasive work-up is indicated her echocardiogram on 06/20/2019 demonstrated a normal ejection fraction among other findings. Recommendations: -Continue with current medical management. -May hold aspirin as needed prior to surgery. -May resume current cardiac medications after surgery. -We will sign off the case for now. -Feel free to contact me directly at [phone] with questions or concerns. (2) Coronary artery disease Qualifiers: Associated angina: with stable angina Is this a current diagnosis for this admission?: Yes Plan: The patient has an extensive cardiovascular history as described above however she has remained asymptomatic and free of heart failure as well as ischemic symp toms on GDMT. Her blood pressure is on the low side likely secondary to her n.p.o. status. Recommendations: -Continue with current medical management. -Resume outpatient cardiovascular medications as soon as feasible post surgery. -We will sign off the case for now, please call me directly at [phone] with any questions or concerns. (3) Chronic kidney disease Qualifiers: Chronic kidney disease stage: stage 3 (moderate) Qualified Code(s): N18.3 - Chronic kidney disease, stage 3 (moderate) Is this a current diagnosis for this admission?: Yes Plan: Her renal function is improved. She is now followed by the nephrology team. Recommendations: -We will defer further management to nephrology team.
[2019-06-21] MEDS ORDERED: BUPIVACAINE HCL 0.5 % INJ/PF 30 ML SDV ONE ×2 (09:36→09:44)
--- NOTE | 2019-06-21 09:54 | PDOC PROGRESS REPORT ---
Subjective Progress Note for:: 06/21/19 Subjective:: Patient is doing well. Currently pain is relatively well controlled. No new signs or symptoms. No right upper extremity numbness or paresthesia. Reason For Visit: RIGHT HUMERAL SHAFT FRACTURE Physical Exam Vital Signs: Temp Pulse Resp BP Pulse Ox 97.9 F 80 18 96/64 L 100 06/20/19 23:06 06/20/19 23:06 06/20/19 23:06 06/20/19 23:06 06/20/19 23:06 Intake & Output 06/20/19 06/21/19 06/22/19 06:59 06:59 06:59 Intake Total 520 Output Total 1100 Balance -580 Weight 69.3 kg Physical Exam: General appearance: PRESENT: no acute distress, cooperative, well-nourished Head exam: PRESENT: atraumatic, normocephalic Eye exam: PRESENT: EOMI Ear exam: PRESENT: normal external ear exam Mouth exam: PRESENT: neck supple Neck exam: ABSENT: tracheal deviation Respiratory exam: PRESENT: symmetrical, unlabored. ABSENT: accessory muscle use, wheezes Pulses: PRESENT: normal radial pulses, normal dorsalis pedis pulse Vascular exam: PRESENT: normal capillary refill GI/Abdominal exam: ABSENT: distended, firm Neurological exam: PRESENT: alert, awake, oriented to person, oriented to place, oriented to time Psychiatric exam: PRESENT: appropriate affect. ABSENT: agitated Focused psych exam: ABSENT: catatonic Skin exam: PRESENT: intact. ABSENT: dry All as above aside from that noted in the HPI and the following: Right upper extremity is swollen, ecchymotic, painful to any range of motion or palpation. Sensation is grossly intact to axillary radial median ulnar nerve, motor function is grossly intact distally Currently in a sling Right lower extremity, neurovascular intact, currently in a knee immobilizer. Results Laboratory Results: 06/21/19 04:46 06/21/19 04:46 06/20/19 06/21/19 06/21/19 15:45 04:46 04:46 WBC 7.5 RBC 3.35 L Hgb 10.8 L Hct 32.0 L MCV 96 MCH 32.2 MCHC 33.8 RDW 14.7 H Plt Count 172 Seg Neutrophils % 71.1 Sodium 137.2 Potassium 4.7 Chloride 107 Carbon Dioxide 21 L Anion Gap 9 BUN 25 H Creatinine 1.76 H Est GFR ( Amer) 35 L Glucose 171 H Calcium 8.7 Urine Color YELLOW Urine Appearance CLEAR Urine pH 5.0 Ur Specific [place] 1.018 Urine Protein NEGATIVE Urine Glucose (UA) >=500 H Urine Ketones NEGATIVE Urine Blood NEGATIVE Urine Nitrite NEGATIVE Ur Leukocyte Esterase SMALL H Urine WBC (Auto) 8 Urine RBC (Auto) 1 Impressions: Elbow X-Ray 06/20/19 00:00 IMPRESSION: Very limited single oblique view of the right elbow, no gross fracture or malalignment Knee X-Ray 06/20/19 00:00 IMPRESSION: SUBACUTE TRANSVERSE FRACTURE OF THE PATELLA. MINIMAL STABLE DISTRACTION OF PATELLAR FRAGMENTS. NO GROSS BONY BRIDGING CALLUS Shoulder X-Ray 06/20/19 00:00 IMPRESSION: Acute spiral fracture proximal right humeral diaphysis with mild valgus angulation Chest X-Ray 06/20/19 08:55 IMPRESSION: Right proximal humerus fracture. No acute cardiopulmonary changes Assessment & Plan - Diagnosis (1) Fracture of humeral shaft, right, closed Qualifiers: Encounter type: initial encounter Is this a current diagnosis for this admission?: Yes Plan: After further discussion with the patient, her son, and consideration of both risks and benefits of surgery, including taking into account her bone stock and the technical difficulty for an ORIF of the proximal humerus, we have decided to proceed with nonoperative management We will place the patient in a sling and swath Regular diet The patient will likely need discharge to a rehab facility or a SNF for inpatient management until she is able to safely return home Case management consult Non-weight bearing RUE Continue current pain control (2) Diabetes Qualifiers: Diabetes mellitus type: type 2 Chronic kidney disease stage: stage 3 (moderate) Is this a current diagnosis for this admission?: Yes (4) Coronary artery disease Qualifiers: Associated angina: with stable angina Is this a current diagnosis for this admission?: Yes (5) Chronic kidney disease Qualifiers: Chronic kidney disease stage: stage 3 (moderate) Qualified Code(s): N18.3 - Chronic kidney disease, stage 3 (moderate) Is this a current diagnosis for this admission?: Yes (6) Right patella fracture Is this a current diagnosis for this admission?: Yes Plan: Keep in KI at all times aside from knee strait in bed or for personal hygiene May bear weight while in KI Will need 2 week follow up for further XR - Time Time Spent with patient: 15-24 minutes
[2019-06-21] MEDS ORDERED: (PENDING PHARMACY ID) (Sertraline Hcl [Zoloft] 200 MG) PO SCH (10:00)
[2019-06-21] MEDS ORDERED: (PENDING PHARMACY ID) (Rosuvastatin Calcium [Crestor 20 Mg Tablet] 20 MG) PO SCH (10:00)
[2019-06-21] MEDS ORDERED: BIOTIN 10000 MCG PO SCH (10:00)
[2019-06-21] MEDS: DOCUSATE SODIUM 100 MG CAPSULE PO SCH (10:14)
[2019-06-21] MEDS: MAGNESIUM OXIDE 400 MG TABLET PO SCH (10:14)
[2019-06-21] MEDS: RANOLAZINE 500 MG TAB.SR.12H PO SCH ×2 (10:14→17:38)
[2019-06-21] MEDS: ASPIRIN 81 MG TABLET, ENT COATED PO SCH (10:14)
--- NOTE | 2019-06-21 10:14 | PDOC PROGRESS REPORT ---
Subjective Progress Note for:: 06/21/19 Subjective:: Patient is currently doing well Denied any chest pain no short of breath Patient still have a pain on her right humerus fracture site scheduled for the surgery per orthopedic today Seen by the nephrology giving IV fluid currently better Reason For Visit: RIGHT HUMERAL SHAFT FRACTURE Physical Exam Vital Signs: Temp Pulse Resp BP Pulse Ox 97.9 F 80 18 96/64 L 100 06/20/19 23:06 06/20/19 23:06 06/20/19 23:06 06/20/19 23:06 06/20/19 23:06 Intake & Output 06/20/19 06/21/19 06/22/19 06:59 06:59 06:59 Intake Total 520 Output Total 1100 Balance -580 Weight 69.3 kg General appearance: PRESENT: no acute distress, well-developed, well-nourished Head exam: PRESENT: atraumatic, normocephalic Eye exam: PRESENT: conjunctiva pink, EOMI, PERRLA. ABSENT: scleral icterus Ear exam: PRESENT: normal external ear exam Mouth exam: PRESENT: moist, tongue midline Neck exam: PRESENT: full ROM. ABSENT: carotid bruit, JVD, lymphadenopathy, thyromegaly Respiratory exam: PRESENT: clear to auscultation lars Cardiovascular exam: PRESENT: RRR. ABSENT: diastolic murmur, rubs, systolic murmur Pulses: PRESENT: normal dorsalis pedis pul, +2 pedal pulses bilateral Vascular exam: PRESENT: normal capillary refill GI/Abdominal exam: PRESENT: normal bowel sounds, soft. ABSENT: distended, guarding, mass, organolmegaly, rebound, tenderness Rectal exam: PRESENT: deferred Extremities exam: ABSENT: pedal edema Additional comments: Right lower extremity immobilizers Musculoskeletal exam: PRESENT: ambulatory Neurological exam: PRESENT: alert, awake, oriented to person, oriented to place, oriented to time, oriented to situation, CN II-XII grossly intact. ABSENT: motor sensory deficit Psychiatric exam: PRESENT: appropriate affect, normal mood. ABSENT: homicidal ideation, suicidal ideation Skin exam: PRESENT: dry, intact, warm. ABSENT: cyanosis, rash Results Laboratory Results: 06/21/19 04:46 06/21/19 04:46 06/20/19 06/21/19 06/21/19 15:45 04:46 04:46 WBC 7.5 RBC 3.35 L Hgb 10.8 L Hct 32.0 L MCV 96 MCH 32.2 MCHC 33.8 RDW 14.7 H Plt Count 172 Seg Neutrophils % 71.1 Sodium 137.2 Potassium 4.7 Chloride 107 Carbon Dioxide 21 L Anion Gap 9 BUN 25 H Creatinine 1.76 H Est GFR ( Amer) 35 L Glucose 171 H Calcium 8.7 Urine Color YELLOW Urine Appearance CLEAR Urine pH 5.0 Ur Specific [place] 1.018 Urine Protein NEGATIVE Urine Glucose (UA) >=500 H Urine Ketones NEGATIVE Urine Blood NEGATIVE Urine Nitrite NEGATIVE Ur Leukocyte Esterase SMALL H Urine WBC (Auto) 8 Urine RBC (Auto) 1 Impressions: Elbow X-Ray 06/20/19 00:00 IMPRESSION: Very limited single oblique view of the right elbow, no gross fracture or malalignment Knee X-Ray 06/20/19 00:00 IMPRESSION: SUBACUTE TRANSVERSE FRACTURE OF THE PATELLA. MINIMAL STABLE DISTRACTION OF PATELLAR FRAGMENTS. NO GROSS BONY BRIDGING CALLUS Shoulder X-Ray 06/20/19 00:00 IMPRESSION: Acute spiral fracture proximal right humeral diaphysis with mild valgus angulation Chest X-Ray 06/20/19 08:55 IMPRESSION: Right proximal humerus fracture. No acute cardiopulmonary changes Assessment & Plan - Diagnosis (1) Accidental fall Qualifiers: Encounter type: initial encounter Qualified Code(s): W19.XXXA - Unspecified fall, initial encounter Is this a current diagnosis for this admission?: Yes (2) Hypertension Qualifiers: Hypertension type: essential hypertension Qualified Code(s): I10 - Essential (primary) hypertension Is this a current diagnosis for this admission?: Yes (3) Lupus Is this a current diagnosis for this admission?: Yes (4) Chronic kidney disease Qualifiers: Chronic kidney disease stage: stage 3 (moderate) Qualified Code(s): N18.3 - Chronic kidney disease, stage 3 (moderate) Is this a current diagnosis for this admission?: Yes (5) Coronary artery disease Qualifiers: Associated angina: with stable angina Is this a current diagnosis for this admission?: Yes (6) Diabetes Qualifiers: Diabetes mellitus type: type 2 Chronic kidney disease stage: stage 3 (moderate) Is this a current diagnosis for this admission?: Yes (7) Fracture of humeral shaft, right, closed Qualifiers: Encounter type: initial encounter Is this a current diagnosis for this admission?: Yes - Time Time Spent with patient: 25-34 minutes Level of Care: TELE Medications reviewed and adjusted accordingly: Yes Anticipated discharge: SNF Within: Other - Plan Summary Plan Summary: Patient is currently stable Continues the current medications Fall precautions
[2019-06-21] MEDS: ISOSORBIDE MONONITRATE 30 MG TAB.ER.24H PO SCH (10:15)
[2019-06-21] MEDS: SERTRALINE HCL 50 MG TABLET PO SCH (10:15)
[2019-06-21] MEDS: LORATADINE 10 MG TABLET PO SCH (10:15)
[2019-06-21] MEDS: CALCITRIOL 0.25 MCG CAPSULE PO SCH (10:19)
[2019-06-21] MEDS: OXYCODONE HCL IR 5 MG TABLET PO PRN (10:33)
[2019-06-21] MEDS ORDERED: TRAMADOL HCL 50 MG TABLET PO PRN (14:04)
--- NOTE | 2019-06-21 16:51 | EKG REPORT ---
SEVERITY:- NORMAL ECG - SINUS RHYTHM : Confirmed by: Rufina Waed 21-Jun-2019 16:50:45
[2019-06-21] MEDS: ATORVASTATIN CALCIUM 40 MG TABLET PO SCH (21:25)
[2019-06-21] MEDS: ZOLPIDEM TARTRATE 5 MG TABLET PO SCH (21:25)
[2019-06-22] MEDS: ACETAMINOPHEN 325 MG TABLET PO SCH ×4 (02:39→19:28)
[2019-06-22] MEDS: INSULIN LISPRO 100 UNIT/ML 3 ML VIAL SUBCUT SCH ×4 (02:40→19:20)
[2019-06-22] MEDS: OXYCODONE HCL IR 5 MG TABLET PO PRN ×2 (03:59→10:22)
[2019-06-22] MEDS: HEPARIN SOD (PORCINE) 5,000 UNIT/ML 1 ML VIAL SUBCUT SCH ×3 (06:35→22:00)
[2019-06-22] MEDS: PANTOPRAZOLE SODIUM 20 MG TABLET.DR PO SCH (06:36)
[2019-06-22] MEDS: RANOLAZINE 500 MG TAB.SR.12H PO SCH ×2 (10:22→19:28)
[2019-06-22] MEDS: SERTRALINE HCL 50 MG TABLET PO SCH (10:22)
[2019-06-22] MEDS: DOCUSATE SODIUM 100 MG CAPSULE PO SCH (10:22)
[2019-06-22] MEDS: ISOSORBIDE MONONITRATE 30 MG TAB.ER.24H PO SCH (10:23)
[2019-06-22] MEDS: MAGNESIUM OXIDE 400 MG TABLET PO SCH (10:23)
[2019-06-22] MEDS: ASPIRIN 81 MG TABLET, ENT COATED PO SCH (10:23)
[2019-06-22] MEDS: LORATADINE 10 MG TABLET PO SCH (10:23)
[2019-06-22] MEDS: MORPHINE SULFATE 10 MG/ML INJ IV PRN (13:03)
--- NOTE | 2019-06-22 13:55 | PDOC PROGRESS REPORT ---
Subjective Progress Note for:: 06/22/19 Subjective:: Patient is doing well this morning. Pain is well controlled. She has no new complaints, feels comfortable for the most part. Nursing staff does report that she was somewhat confused this morning. Reason For Visit: RIGHT HUMERAL SHAFT FRACTURE Physical Exam Vital Signs: Temp Pulse Resp BP Pulse Ox 97.5 F 79 18 98/48 L 95 06/22/19 09:04 06/22/19 09:04 06/22/19 09:04 06/22/19 09:04 06/22/19 09:04 Intake & Output 06/21/19 06/22/19 06/23/19 06:59 06:59 06:59 Intake Total 520 340 Output Total 1100 0 Balance -580 340 Weight 69.3 kg 69.8 kg Physical Exam: General appearance: PRESENT: no acute distress, cooperative, well-nourished Head exam: PRESENT: atraumatic, normocephalic Eye exam: PRESENT: EOMI Ear exam: PRESENT: normal external ear exam Mouth exam: PRESENT: neck supple Neck exam: ABSENT: tracheal deviation Respiratory exam: PRESENT: symmetrical, unlabored. ABSENT: accessory muscle use, wheezes Pulses: PRESENT: normal radial pulses, normal dorsalis pedis pulse Vascular exam: PRESENT: normal capillary refill GI/Abdominal exam: ABSENT: distended, firm Neurological exam: PRESENT: alert, awake, oriented to person, oriented to place, oriented to time Psychiatric exam: PRESENT: appropriate affect. ABSENT: agitated Focused psych exam: ABSENT: catatonic Skin exam: PRESENT: intact. ABSENT: dry All as above aside from that noted in the HPI and the following: Right upper extremity is swollen, ecchymotic, painful to any range of motion or palpation. Sensation is grossly intact to axillary radial median ulnar nerve, motor function is grossly intact distally Currently in a sling Right lower extremity, neurovascular intact, currently in a knee immobilizer. Results Laboratory Results: 06/21/19 04:46 06/21/19 04:46 Impressions: Elbow X-Ray 06/20/19 00:00 IMPRESSION: Very limited single oblique view of the right elbow, no gross fracture or malalignment Knee X-Ray 06/20/19 00:00 IMPRESSION: SUBACUTE TRANSVERSE FRACTURE OF THE PATELLA. MINIMAL STABLE DISTRACTION OF PATELLAR FRAGMENTS. NO GROSS BONY BRIDGING CALLUS Shoulder X-Ray 06/20/19 00:00 IMPRESSION: Acute spiral fracture proximal right humeral diaphysis with mild valgus angulation Chest X-Ray 06/20/19 08:55 IMPRESSION: Right proximal humerus fracture. No acute cardiopulmonary changes Assessment & Plan - Diagnosis (1) Fracture of humeral shaft, right, closed Qualifiers: Encounter type: initial encounter Is this a current diagnosis for this admission?: Yes Plan: Plans remain the same. We will treat humeral shaft fracture and patella fracture nonoperatively. -Plan for discharge when facility is available. (2) Diabetes Qualifiers: Diabetes mellitus type: type 2 Chronic kidney disease stage: stage 3 (moderate) Is this a current diagnosis for this admission?: Yes (4) Coronary artery disease Qualifiers: Associated angina: with stable angina Is this a current diagnosis for this admission?: Yes (5) Chronic kidney disease Qualifiers: Chronic kidney disease stage: stage 3 (moderate) Qualified Code(s): N18.3 - Chronic kidney disease, stage 3 (moderate) Is this a current diagnosis for this admission?: Yes (6) Right patella fracture Is this a current diagnosis for this admission?: Yes - Time Time Spent with patient: Less than 15 minutes
[2019-06-22] MEDS ORDERED: HALOPERIDOL LACTATE INJ 5 MG/1 ML VIAL ONE (19:41)
[2019-06-22] MEDS ORDERED: HALOPERIDOL LACTATE INJ 5 MG/1 ML VIAL IV ONE (20:00)
[2019-06-22] MEDS: ZOLPIDEM TARTRATE 5 MG TABLET PO SCH (22:00)
[2019-06-22] MEDS: ATORVASTATIN CALCIUM 40 MG TABLET PO SCH (22:00)
[2019-06-23] MEDS: INSULIN LISPRO 100 UNIT/ML 3 ML VIAL SUBCUT SCH ×5 (03:05→23:59)
[2019-06-23] MEDS: ACETAMINOPHEN 325 MG TABLET PO SCH ×5 (06:18→23:47)
[2019-06-23] MEDS: HEPARIN SOD (PORCINE) 5,000 UNIT/ML 1 ML VIAL SUBCUT SCH ×3 (06:18→21:59)
[2019-06-23] MEDS: PANTOPRAZOLE SODIUM 20 MG TABLET.DR PO SCH (06:35)
[2019-06-23] MEDS: OXYCODONE HCL IR 5 MG TABLET PO PRN ×2 (08:11→17:30)
--- NOTE | 2019-06-23 09:19 | PDOC PROGRESS REPORT ---
Subjective Progress Note for:: 06/23/19 Subjective:: The patient is still doing well this morning. Nursing staff explains that she is sometimes altered. I had multiple discussions with her son says that this may be her baseline however it is difficult to tell if this is acute on chronic. She has been somewhat noncompliant in regards to her brace and has not been responding appropriately uniformly according to nursing report. For me this morning she is responding appropriately. Reason For Visit: RIGHT HUMERAL SHAFT FRACTURE Physical Exam Vital Signs: Temp Pulse Resp BP Pulse Ox 97.9 F 67 20 98/39 L 92 06/23/19 07:26 06/23/19 07:26 06/23/19 07:26 06/23/19 07:26 06/23/19 07:26 Intake & Output 06/22/19 06/23/19 06/24/19 06:59 06:59 06:59 Intake Total 340 840 Output Total 0 Balance 340 840 Weight 69.8 kg 69.9 kg Physical Exam: General appearance: PRESENT: no acute distress, cooperative, well-nourished Head exam: PRESENT: atraumatic, normocephalic Eye exam: PRESENT: EOMI Ear exam: PRESENT: normal external ear exam Mouth exam: PRESENT: neck supple Neck exam: ABSENT: tracheal deviation Respiratory exam: PRESENT: symmetrical, unlabored. ABSENT: accessory muscle use, wheezes Pulses: PRESENT: normal radial pulses, normal dorsalis pedis pulse Vascular exam: PRESENT: normal capillary refill GI/Abdominal exam: ABSENT: distended, firm Neurological exam: PRESENT: alert, awake, oriented to person, oriented to place, oriented to time Psychiatric exam: PRESENT: appropriate affect. ABSENT: agitated Focused psych exam: ABSENT: catatonic Skin exam: PRESENT: intact. ABSENT: dry All as above aside from that noted in the HPI and the following: Right upper extremity is progressively swollen, ecchymotic, painful to any range of motion or palpation. Compartments remain soft Sensation is grossly intact to axillary radial median ulnar nerve, motor function is grossly intact distally Currently in a sling Right lower extremity, neurovascular intact, currently in a knee immobilizer. Results Laboratory Results: 06/21/19 04:46 06/21/19 04:46 Impressions: Elbow X-Ray 06/20/19 00:00 IMPRESSION: Very limited single oblique view of the right elbow, no gross fracture or malalignment Knee X-Ray 06/20/19 00:00 IMPRESSION: SUBACUTE TRANSVERSE FRACTURE OF THE PATELLA. MINIMAL STABLE DISTRACTION OF PATELLAR FRAGMENTS. NO GROSS BONY BRIDGING CALLUS Shoulder X-Ray 06/20/19 00:00 IMPRESSION: Acute spiral fracture proximal right humeral diaphysis with mild valgus angulation Chest X-Ray 06/20/19 08:55 IMPRESSION: Right proximal humerus fracture. No acute cardiopulmonary changes Assessment & Plan - Diagnosis (1) Fracture of humeral shaft, right, closed Qualifiers: Encounter type: initial encounter Is this a current diagnosis for this admission?: Yes Plan: Swelling and ecchymosis is as would be expected for an injury such as hers. I repositioned the sling on her this morning to ensure that it is in good position and litigation counsel her on the effectiveness of its use and the potential protection from painful motion. She does seem somewhat forgetful and that this is not the first time we have talked about positioning of the arm but she does not recall prior instructions. Her son who I spoke with did report that "she does what ever she wants" and that she does not do good with medical instructions. We will plan for discharge today Case management to please contact me with any updates (2) Diabetes Qualifiers: Diabetes mellitus type: type 2 Chronic kidney disease stage: stage 3 (moderate) Is this a current diagnosis for this admission?: Yes (4) Coronary artery disease Qualifiers: Associated angina: with stable angina Is this a current diagnosis for this admission?: Yes (5) Chronic kidney disease Qualifiers: Chronic kidney disease stage: stage 3 (moderate) Qualified Code(s): N18.3 - Chronic kidney disease, stage 3 (moderate) Is this a current diagnosis for this admission?: Yes (6) Right patella fracture Is this a current diagnosis for this admission?: Yes (7) Altered mental status Is this a current diagnosis for this admission?: Yes Plan: Psychiatric consult pending - Time Time Spent with patient: Less than 15 minutes
[2019-06-23] MEDS: SERTRALINE HCL 50 MG TABLET PO SCH (10:37)
[2019-06-23] MEDS: RANOLAZINE 500 MG TAB.SR.12H PO SCH ×2 (10:37→17:29)
[2019-06-23] MEDS: ISOSORBIDE MONONITRATE 30 MG TAB.ER.24H PO SCH (10:37)
[2019-06-23] MEDS: LORATADINE 10 MG TABLET PO SCH (10:37)
[2019-06-23] MEDS: DOCUSATE SODIUM 100 MG CAPSULE PO SCH (10:37)
[2019-06-23] MEDS: ASPIRIN 81 MG TABLET, ENT COATED PO SCH (10:37)
[2019-06-23] MEDS: MAGNESIUM OXIDE 400 MG TABLET PO SCH (10:38)
--- NOTE | 2019-06-23 17:36 | RADIOLOGY REPORT (SQ) ---
EXAM DESCRIPTION: MRI HEAD WITHOUT IMAGES COMPLETED DATE/TIME: 06/23/2019 5:15 pm REASON FOR STUDY: frequent falls, disorientation, disorganization COMPARISON: None. TECHNIQUE: Multiplanar imaging includes non-contrasted T1, T2, FLAIR, and Diffusion with ADC map seq uences. Images stored on PACS. LIMITATIONS: None. FINDINGS: ANATOMY: No anomalies. Normal vascular flow voids. Pituitary fossa normal. CSF SPACES: Normal in size and contour. No hemorrhage. CEREBRUM: A few high-signal intensity lesions scattered throughout the white matter on FLAIR imaging with distribution suggesting chronic micro-vascular ischemic change. Sulci and gyri normal in size a nd contour. No evidence of hemorrhage, mass or extraaxial fluid collection. POSTERIOR FOSSA: No signal alteration. No hemorrhage. No edema, masses or mass effect. Internal ton tory canals, cerebello-pontine angles, mastoids normal. DIFFUSION: Negative for acute or sub-acute infarction. ORBITS: No masses. Globes normal. PARANASAL SINUSES: No fluid levels. Mucosa normal. OTHER: No other significant finding. IMPRESSION: MINIMAL MICROVASCULAR ISCHEMIC CHANGE. OTHERWISE NORMAL STUDY. EVIDENCE OF ACUTE STROKE: NO. TECHNICAL DOCUMENTATION: JOB ID: [id number]- All Rights Reserved Reading location - IP/workstation name: [email or web address]
[2019-06-23 18:59] LABS: A TYPE INFLUENZA AG NEGATIVE (NEGATIVE); B INFLUENZA AG NEGATIVE (NEGATIVE)
--- NOTE | 2019-06-23 20:23 | PSYCHOLOGICAL NOTE ---
Psych Note - Psych Note Date seen by psych provider: 06/23/19 Time seen by psych provider: 13:15 Psych Note: Reason For Consult:[facility] Patient currently believes it is August 12, 2019. Patient then corrects herself and states that it is July 22. When patient is asked to the current president is she makes a face at clinician and then states "we saw a baby yesterday." Patient begins to discuss in detail this event of seeing a baby and her emotions surrounding it. Clinician notes patient did not see a baby, and has had no contact with children since arriving to [facility] on 06/20/2019. Patient originally is able to provide her correct date however then states it is 1950 then changes her answer during conversation stating it is 1950. Patient does not seem to realize she is providing different dates. Patient is able to be redirected to answer questions and is able to answer who the current president is. When asked if she knows any other presence she states "Obama care." Patient states she is currently in her bedroom at [address] Patient does not believe that she is currently in the hospital stating to the clinician; "you are crazy." Patient then slowly starts to agree that she is not in her room and then states "the bugs are still up there when pointing to the ceiling. Patient denies having a mental health history however states she does have an outpatient mental health provider for therapy and medication and takes Zoloft and Valium. Patient states that she goes to [facility] and sees Dr. Joseph; however, "it is not the [facility]." Patient is very focused on her upcoming placement to a 2-week stay for rehab. She asked multiple times if clinician is the one that is going to be assisting her placement. Patient states that she has no problem going to this placement as she needs help. Patient is alert and orientated to person and circumstance. Mood is euthymic with congruent affect as evidenced by smiling, laughing and engaging with clinician. Patient denies suicidal and homicidal ideation. Patient demon strates difficult with organized and linear thought processes; demonstrating flight of thought and needed to be redirected to conversation. Patient reports Eye contact is well-maintained. Conversational speech is within normal rate, tone and prosody. Intellectual abilities appear to be within the average range. Attention and concentration are poor. Insight, judgment, impulse control are poor Head MRI 06/23/2019 indicates minimal microvascular ischemia change. Medication recommendations per [facility]'s contracted psychiatrist Dr. Colby PETERSEN are as follows Please decrease Zoloft to 100mg daily Please decrease Xanax to 0.25mg twice daily as needed (patient has not required this home medication since arriving) Please discontinue Ambien Impression\\plan: Patient is cleared from acute psychiatric services. Patient's evaluation indicates probable delirium or psychosis. Patient reports numerous falls recently and continues to demonstrate being unsteady on her feet. There is some indication of neurodegenterative processes in the patient's Head MRI, but it is reported as minimal. During the patient's evaluation, she was not full orientated. She believed that she was in her bedroom and that it was August 12, 2019. Patient verbalized her birthday correctly but then would say it was [birth year] then change what she said again to [birth year]. Patient reported thoughts of seeing a baby yesterday (she did not). Between the reported numerous falls and the patient's current delusions and difficulties in orientation, there is a possibility the patient had been misusing or overusing her home pain and anxiety medications. The patient is only receiving her pain and anxiety medications as necessary; some of her presentation could be contributed to withdrawal psychosis. Dr. Camacho was consulted to care management of this patient; attending physicians in agreement with recommendations and disposition.
[2019-06-23] MEDS: ATORVASTATIN CALCIUM 40 MG TABLET PO SCH (22:04)
[2019-06-23] MEDS: ZOLPIDEM TARTRATE 5 MG TABLET PO SCH (22:05)
--- NOTE | 2019-06-23 22:30 | PDOC PROGRESS REPORT ---
Subjective Progress Note for:: 06/22/19 Subjective:: Patient is very confused and experiencing visual hallucination and agitated Not able to appropriately contribute to her care today. Reason For Visit: RIGHT HUMERAL SHAFT FRACTURE Physical Exam Vital Signs: Temp Pulse Resp BP Pulse Ox 98.1 F 69 18 99/54 L 96 06/22/19 16:00 06/22/19 16:00 06/22/19 16:00 06/22/19 16:00 06/22/19 16:00 Intake & Output 06/21/19 06/22/19 06/23/19 06:59 06:59 06:59 Intake Total 520 340 840 Output Total 1100 0 Balance -580 340 840 Weight 69.3 kg 69.8 kg General appearance: PRESENT: severe distress - due to visual hallucination Head exam: PRESENT: atraumatic, normocephalic Eye exam: PRESENT: conjunctiva pink. ABSENT: scleral icterus Respiratory exam: PRESENT: clear to auscultation lars, decreased breath sounds - at lunbg bases Cardiovascular exam: PRESENT: RRR. ABSENT: diastolic murmur, rubs, systolic murmur Vascular exam: ABSENT: pallor GI/Abdominal exam: PRESENT: normal bowel sounds, soft. ABSENT: distended, guar ding, mass, organolmegaly, rebound, tenderness Extremities exam: PRESENT: pedal edema - right upper extremity in sling support, tenderness - right humeral fracture, other - right immobilizer in use due to right patella sleeve fracture Musculoskeletal exam: PRESENT: deformity - related to right humeral fracture. ABSENT: ambulatory Neurological exam: PRESENT: awake. ABSENT: oriented to person, oriented to place, oriented to time, oriented to situation Psychiatric exam: PRESENT: agitated - with visual hallucination Skin exam: PRESENT: dry, erythema - around right humeral fracture, warm Results Laboratory Results: 06/21/19 04:46 06/21/19 04:46 Impressions: Elbow X-Ray 06/20/19 00:00 IMPRESSION: Very limited single oblique view of the right elbow, no gross fracture or malalignment Knee X-Ray 06/20/19 00:00 IMPRESSION: SUBACUTE TRANSVERSE FRACTURE OF THE PATELLA. MINIMAL STABLE DISTRACTION OF PATELLAR FRAGMENTS. NO GROSS BONY BRIDGING CALLUS Shoulder X-Ray 06/20/19 00:00 IMPRESSION: Acute spiral fracture proximal right humeral diaphysis with mild valgus angulation Chest X-Ray 06/20/19 08:55 IMPRESSION: Right proximal humerus fracture. No acute cardiopulmonary changes Assessment & Plan - Diagnosis (1) Acute delirium Is this a current diagnosis for this admission?: Yes Plan: Patient will receive IV Haloperidol 2 mg x 1 dose for acute agitation with visual hallucination. This maybe multifactorial in view of her acute illness and medication management. We will follow up on her response . (2) Diabetes mellitus type 2 in nonobese Is this a current diagnosis for this admission?: Yes Plan: Continue current medication management. (3) Hypertension Qualifiers: Hypertension type: essential hypertension Qualified Code(s): I10 - Essential (primary) hypertension Is this a current diagnosis for this admission?: Yes Plan: Continue current medication management. (4) Accidental fall Qualifiers: Encounter type: initial encounter Qualified Code(s): W19.XXXA - Unspecified fall, initial encounter Is this a current diagnosis for this admission?: Yes Plan: Follow up on orthopedic team recommendation. (5) Fracture of humeral shaft, right, closed Qualifiers: Encounter type: initial encounter Is this a current diagnosis for this admission?: Yes Plan: Follow up on orthopedic team recommendation. (6) Right patella fracture Is this a current diagnosis for this admission?: Yes Plan: Follow up on orthopedic team recommendation. - Time Time Spent with patient: 25-34 minutes Level of Care: MEDICAL Medications reviewed and adjusted accordingly: Yes Anticipated discharge: SNF Within: Other - Inpatient Certification Based on my medical assessment, after consideration of the patient's comorbidities, presenting symptoms, or acuity I expect that the services needed warrant INPATIENT care.: Yes I certify that my determination is in accordance with my understanding of Medicare's requirements for reasonable and necessary INPATIENT services [42 CFR 412.3e].: Yes Medical Necessity: Significant Comorbidiites Make Outpatient Treatment Too Risky, Need Close Monitoring Due to Risk of Patient Decompensation, Need for Pain Control, Need for Surgery, Risk of Complication if Not Cared For in Hospital, Risk of Diagnosis Which Will Require Inpatient Eval/Care/Monitoring Post Hospital Care: D/C or Transfer Summary - Plan Summary Plan Summary: Follow up on orthopedic team recommendation. Maintain on all other current medication management.
--- NOTE | 2019-06-23 22:36 | PDOC PROGRESS REPORT ---
Subjective Progress Note for:: 06/23/19 Subjective:: Patient is more lucid and contributory to her condition during my visit today. She denied any chest pain or diciuylty with breathing. No reporetd fever or chills. No nausea, vomiting or abdominal pain. PO intake is fair. Reason For Visit: RIGHT HUMERAL SHAFT FRACTURE Physical Exam Vital Signs: Temp Pulse Resp BP Pulse Ox 98.6 F 80 16 133/54 H 98 06/23/19 15:25 06/23/19 15:25 06/23/19 15:25 06/23/19 15:25 06/23/19 15:25 Intake & Output 06/22/19 06/23/19 06/24/19 06:59 06:59 06:59 Intake Total 340 840 840 Output Total 0 Balance 340 840 840 Weight 69.8 kg 69.9 kg Physical Exam: General appearance: PRESENT: severe distress - due to visual hallucination Head exam: PRESENT: atraumatic, normocephalic Eye exam: PRESENT: conjunctiva pink. ABSENT: pallor, scleral icterus Respiratory exam: PRESENT: clear to auscultation lars, decreased breath sounds - at lunbg bases Cardiovascular exam: PRESENT: RRR. ABSENT: diastolic murmur, rubs, systolic murmur GI/Abdominal exam: PRESENT: normal bowel sounds, soft. ABSENT: distended, guarding, mass, organomegaly, rebound, tenderness Extremities exam: PRESENT: pedal edema - right upper extremity in sling support, tenderness - right humeral fracture, other - right immobilizer in use due to right patella sleeve fracture Musculoskeletal exam: PRESENT: deformity - related to right humeral fracture. ABSENT: ambulatory Neurological exam: PRESENT: awake. ABSENT: oriented to person, oriented to place, oriented to time, oriented to situation Psychiatric exam: PRESENT: agitated - with visual hallucination Skin exam: PRESENT: dry, erythema - around right humeral fracture, warm Results Laboratory Results: 06/21/19 04:46 06/21/19 04:46 Impressions: Elbow X-Ray 06/20/19 00:00 IMPRESSION: Very limited single oblique view of the right elbow, no gross fracture or malalignment Knee X-Ray 06/20/19 00:00 IMPRESSION: SUBACUTE TRANSVERSE FRACTURE OF THE PATELLA. MINIMAL STABLE DISTRACTION OF PATELLAR FRAGMENTS. NO GROSS BONY BRIDGING CALLUS Shoulder X-Ray 06/20/19 00:00 IMPRESSION: Acute spiral fracture proximal right humeral diaphysis with mild valgus angulation Chest X-Ray 06/20/19 08:55 IMPRESSION: Right proximal humerus fracture. No acute cardiopulmonary changes Head MRI 06/23/19 00:00 IMPRESSION: MINIMAL MICROVASCULAR ISCHEMIC CHANGE. OTHERWISE NORMAL STUDY. EVIDENCE OF ACUTE STROKE: NO. Assessment & Plan - Diagnosis (1) Acute delirium Is this a current diagnosis for this admission?: Yes (2) Diabetes mellitus type 2 in nonobese Is this a current diagnosis for this admission?: Yes (3) Hypertension Qualifiers: Hypertension type: essential hypertension Qualified Code(s): I10 - Essential (primary) hypertension Is this a current diagnosis for this admission?: Yes (4) Accidental fall Qualifiers: Encounter type: initial encounter Qualified Code(s): W19.XXXA - Unspecified fall, initial encounter Is this a current diagnosis for this admission?: Yes (5) Fracture of humeral shaft, right, closed Qualifiers: Encounter type: initial encounter Is this a current diagnosis for this admission?: Yes (6) Right patella fracture Is this a current diagnosis for this admission?: Yes - Time Time Spent with patient: 25-34 minutes Level of Care: MEDICAL Medications reviewed and adjusted accordingly: Yes Anticipated discharge: SNF Within: Other - Inpatient Certification Based on my medical assessment, after consideration of the patient's comorbidities, presenting symptoms, or acuity I expect that the services needed warrant INPATIENT care.: Yes I certify that my determination is in accordance with my understanding of Medicare's requirements for reasonable and necessary INPATIENT services [42 CFR 412.3e].: Yes Medical Necessity: Significant Comorbidiites Make Outpatient Treatment Too R isky, Need Close Monitoring Due to Risk of Patient Decompensation, Need For IV Fluids, Need for Pain Control, Need for Surgery, Risk of Complication if Not Cared For in Hospital, Risk of Diagnosis Which Will Require Inpatient Eval/Care/Monitoring Post Hospital Care: D/C or Transfer Summary - Plan Summary Plan Summary: Continue current medication management. Orthopedic and psychiatry teams input and plan noted.
[2019-06-24] MEDS ORDERED: HALOPERIDOL LACTATE INJ 5 MG/1 ML VIAL ONE (00:18)
[2019-06-24] MEDS ORDERED: HALOPERIDOL LACTATE INJ 5 MG/1 ML VIAL IV ONE (00:30)
[2019-06-24] MEDS: HEPARIN SOD (PORCINE) 5,000 UNIT/ML 1 ML VIAL SUBCUT SCH ×3 (05:20→23:40)
[2019-06-24] MEDS: PANTOPRAZOLE SODIUM 20 MG TABLET.DR PO SCH (05:21)
[2019-06-24] MEDS: ACETAMINOPHEN 325 MG TABLET PO SCH ×3 (05:22→17:02)
[2019-06-24] MEDS: INSULIN LISPRO 100 UNIT/ML 3 ML VIAL SUBCUT SCH ×3 (07:58→18:28)
[2019-06-24] MEDS ORDERED: LORAZEPAM 0.5 MG TABLET PO SCH (08:30)
[2019-06-24] MEDS: ISOSORBIDE MONONITRATE 30 MG TAB.ER.24H PO SCH (10:29)
[2019-06-24] MEDS: MAGNESIUM OXIDE 400 MG TABLET PO SCH (10:29)
[2019-06-24] MEDS: DOCUSATE SODIUM 100 MG CAPSULE PO SCH (10:29)
[2019-06-24] MEDS: ASPIRIN 81 MG TABLET, ENT COATED PO SCH (10:32)
[2019-06-24] MEDS: RANOLAZINE 500 MG TAB.SR.12H PO SCH ×2 (10:32→18:30)
[2019-06-24] MEDS: SITAGLIPTIN PHOSPHATE 25 MG TABLET PO SCH (10:32)
[2019-06-24] MEDS: LORATADINE 10 MG TABLET PO SCH (10:32)
[2019-06-24] MEDS: SERTRALINE HCL 50 MG TABLET PO SCH (10:32)
[2019-06-24] MEDS: CALCITRIOL 0.25 MCG CAPSULE PO SCH (10:33)
[2019-06-24 12:03] LABS: HEMATOCRIT 26.6 % (36.0-47.0); HEMOGLOBIN 9.3 g/dL (12.0-15.5); MEAN CORPUSCULAR HEMOGLOBIN 33.1 pg (27.0-33.4); MEAN CORPUSCULAR HGB CONC 34.9 g/dL (32.0-36.0); MEAN CORPUSCULAR VOLUME 95 fl (80-97); PLATELET COUNT 178 10^3/uL (150-450); RED CELL DISTRIBUTION WIDTH 14.8 % (11.5-14.0); WHITE BLOOD COUNT 9.9 10^3/uL (4.0-10.5)
--- NOTE | 2019-06-24 12:11 | PDOC PROGRESS REPORT ---
Subjective Progress Note for:: 06/24/19 Subjective:: Patient is currently doing fair currently alert awake oriented x3 and talking to me normally Somehow patient have underlying psych conditions with some more agitations and screaming at nighttime require 1 dose of the Haldol Patient seen by the psych waiting further recommendations for the medications Patient usually see the psychiatrist as outpatient try to discuss with the patient and figure out how often the patient is taking the lorazepam which patient usually take as needed as needed may be 1 or 2 tablets a day but not at 3 Patient's not using the morphine since last several days Patient use the oxycodone Not using the tramadol Review the medications list discussed with the nursing staff to restart low-dose of the lorazepam to prevent any benzo withdrawal Fall precautions MRI of the head is negative Patient had a Covid test done due to the going for the facilities requirement Reason For Visit: RIGHT HUMERAL SHAFT FRACTURE Physical Exam Vital Signs: Temp Pulse Resp BP Pulse Ox 97.7 F 74 18 101/48 L 100 06/24/19 08:06 06/24/19 08:06 06/24/19 08:06 06/24/19 08:06 06/24/19 08:06 Intake & Output 06/23/19 06/24/19 06/25/19 06:59 06:59 06:59 Intake Total 840 1077 Balance 840 1077 Weight 69.9 kg 71.1 kg General appearance: PRESENT: no acute distress, well-developed, well-nourished Head exam: PRESENT: atraumatic, normocephalic Eye exam: PRESENT: conjunctiva pink, EOMI, PERRLA. ABSENT: scleral icterus Ear exam: PRESENT: normal external ear exam Mouth exam: PRESENT: moist, tongue midline Neck exam: PRESENT: full ROM. ABSENT: carotid bruit, JVD, lymphadenopathy, thyromegaly Respiratory exam: PRESENT: clear to auscultation lars Cardiovascular exam: PRESENT: RRR. ABSENT: diastolic murmur, rubs, systolic murmur Pulses: PRESENT: normal dorsalis pedis pul, +2 pedal pulses bilateral Vascular exam: PRESENT: normal capillary refill GI/Abdominal exam: PRESENT: normal bowel sounds, soft. ABSENT: distended, guarding, mass, organolmegaly, rebound, tenderness Rectal exam: PRESENT: deferred Neurological exam: PRESENT: alert, awake, oriented to person, oriented to place, oriented to situation, CN II-XII grossly intact. ABSENT: motor sensory deficit Psychiatric exam: PRESENT: appropriate affect, normal mood. ABSENT: homicidal ideation, suicidal ideation Skin exam: PRESENT: dry, intact, warm. ABSENT: cyanosis, rash Results Impressions: Elbow X-Ray 06/20/19 00:00 IMPRESSION: Very limited single oblique view of the right elbow, no gross fracture or malalignment Knee X-Ray 06/20/19 00:00 IMPRESSION: SUBACUTE TRANSVERSE FRACTURE OF THE PATELLA. MINIMAL STABLE DISTRACTION OF PATELLAR FRAGMENTS. NO GROSS BONY BRIDGING CALLUS Shoulder X-Ray 06/20/19 00:00 IMPRESSION: Acute spiral fracture proximal right humeral diaphysis with mild valgus angulation Chest X-Ray 06/20/19 08:55 IMPRESSION: Right proximal humerus fracture. No acute cardiopulmonary changes Head MRI 06/23/19 00:00 IMPRESSION: MINIMAL MICROVASCULAR ISCHEMIC CHANGE. OTHERWISE NORMAL STUDY. EVIDENCE OF ACUTE STROKE: NO. Assessment & Plan - Diagnosis (1) Accidental fall Qualifiers: Encounter type: initial encounter Qualified Code(s): W19.XXXA - Unspecified fall, initial encounter Is this a current diagnosis for this admission?: Yes (2) Hypertension Qualifiers: Hypertension type: essential hypertension Qualified Code(s): I10 - Essential (primary) hypertension Is this a current diagnosis for this admission?: Yes (3) Lupus Is this a current diagnosis for this admission?: Yes (4) Chronic kidney disease Qualifiers: Chronic kidney disease stage: stage 3 (moderate) Qualified Code(s): N18.3 - Chronic kidney disease, stage 3 (moderate) Is this a current diagnosis for this admission?: Yes (5) Coronary artery disease Qualifiers: Associated angina: with stable angina Is this a current diagnosis for this admission?: Yes (6) Diabetes Qualifiers: Diabetes mellitus type: type 2 Chronic kidney disease stage: stage 3 (moderate) Is this a current diagnosis for this admission?: Yes Plan: Patient A1c is 8.6 start the patient on the Tradjenta 5 mg (7) Fracture of humeral shaft, right, closed Qualifiers: Encounter type: initial encounter Is this a current diagnosis for this admission?: Yes (8) Acute delirium Is this a current diagnosis for this admission?: Yes Plan: Patient MRI of the head is negative's most likely underlying psych conditions with some medications I believe try to avoid any IV pain medications well patient's pain under control Restart some low-dose lorazepam to prevent any benzo withdrawal which unlikely but patient is states she is taking 1 or 2 tablet as needed I think will wait for the psych evaluations Check the urine culture - Time Time Spent with patient: 25-34 minutes Level of Care: TELE Medications reviewed and adjusted accordingly: Yes Anticipated discharge: SNF Within: Other - Plan Summary Plan Summary: See as above
[2019-06-24 12:25] LABS: ANION GAP 8 (5-19); BLOOD UREA NITROGEN 31 mg/dL (7-20); CALCIUM 8.8 mg/dL (8.4-10.2); CARBON DIOXIDE 24 mmol/L (22-30); CHLORIDE 101 mmol/L (98-107); GLUCOSE 146 mg/dL (75-110); POTASSIUM 4.3 mmol/L (3.6-5.0)
[2019-06-24] MEDS ORDERED: HALOPERIDOL LACTATE INJ 5 MG/1 ML VIAL IM ONE (21:00)
--- NOTE | 2019-06-24 22:08 | PDOC PROGRESS REPORT ---
Subjective Progress Note for:: 06/24/19 Subjective:: No new symptoms reported. She has removed her immobilizer again. She understands and is willing to consider rehab placement after discussion today. Reason For Visit: RIGHT HUMERAL SHAFT FRACTURE Physical Exam Vital Signs: Temp Pulse Resp BP Pulse Ox 97.8 F 82 21 H 126/53 H 99 06/24/19 14:43 06/24/19 14:43 06/24/19 14:43 06/24/19 14:43 06/24/19 14:43 Intake & Output 06/23/19 06/24/19 06/25/19 06:59 06:59 06:59 Intake Total 840 1077 510 Balance 840 1077 510 Weight 69.9 kg 71.1 kg Physical Exam: General appearance: PRESENT: no acute distress, cooperative, well-nourished Head exam: PRESENT: atraumatic, normocephalic Eye exam: PRESENT: EOMI Ear exam: PRESENT: normal external ear exam Mouth exam: PRESENT: neck supple Neck exam: ABSENT: tracheal deviation Respiratory exam: PRESENT: symmetrical, unlabored. ABSENT: accessory muscle use, wheezes Pulses: PRESENT: normal radial pulses, normal dorsalis pedis pulse Vascular exam: PRESENT: normal capillary refill GI/Abdominal exam: ABSENT: distended, firm Neurological exam: PRESENT: alert, awake, oriented to person, oriented to place, oriented to time. Her orientation does fluctuate during exam. Psychiatric exam: PRESENT: appropriate affect. ABSENT: agitated Focused psych exam: ABSENT: catatonic Skin exam: PRESENT: intact. ABSENT: dry All as above aside from that noted in the HPI and the following: Right upper extremity is progressively swollen, ecchymotic, painful to any range of motion or palpation. Compartments remain soft Sensation is grossly intact to axillary radial median ulnar nerve, motor function is grossly intact distally Currently in a sling Right lower extremity, neurovascular intact, currently in a knee immobilizer. General appearance: PRESENT: no acute distress Results Laboratory Results: 06/24/19 11:51 06/24/19 11:51 06/24/19 06/24/19 11:51 11:51 WBC 9.9 RBC 2.80 L Hgb 9.3 L Hct 26.6 L MCV 95 MCH 33.1 MCHC 34.9 RDW 14.8 H Plt Count 178 Sodium 133.3 L Potassium 4.3 Chloride 101 Carbon Dioxide 24 Anion Gap 8 BUN 31 H Creatinine 1.53 H Est GFR ( Amer) 41 L Glucose 146 H Calcium 8.8 Impressions: Elbow X-Ray 06/20/19 00:00 IMPRESSION: Very limited single oblique view of the right elbow, no gross fracture or malalignment Knee X-Ray 06/20/19 00:00 IMPRESSION: SUBACUTE TRANSVERSE FRACTURE OF THE PATELLA. MINIMAL STABLE DISTRACTION OF PATELLAR FRAGMENTS. NO GROSS BONY BRIDGING CALLUS Shoulder X-Ray 06/20/19 00:00 IMPRESSION: Acute spiral fracture proximal right humeral diaphysis with mild valgus angulation Chest X-Ray 06/20/19 08:55 IMPRESSION: Right proximal humerus fracture. No acute cardiopulmonary changes Head MRI 06/23/19 00:00 IMPRESSION: MINIMAL MICROVASCULAR ISCHEMIC CHANGE. OTHERWISE NORMAL STUDY. EVIDENCE OF ACUTE STROKE: NO. Assessment & Plan - Diagnosis (1) Fracture of humeral shaft, right, closed Qualifiers: Encounter type: initial encounter Is this a current diagnosis for this admission?: Yes Plan: Plan for discharge to rehab upon placement - Follow in clinic in 10-14 days and transition to horton brace. (2) Diabetes Qualifiers: Diabetes mellitus type: type 2 Chronic kidney disease stage: stage 3 (moderate) Is this a current diagnosis for this admission?: Yes (4) Coronary artery disease Qualifiers: Associated angina: with stable angina Is this a current diagnosis for this admission?: Yes (5) Chronic kidney disease Qualifiers: Chronic kidney disease stage: stage 3 (moderate) Qualified Code(s): N18.3 - Chronic kidney disease, stage 3 (moderate) Is this a current diagnosis for this admission?: Yes (6) Right patella fracture Is this a current diagnosis for this admission?: Yes (7) Altered mental status Is this a current diagnosis for this admission?: Yes Plan: Psych consultation suggestions followed. Medication changes made Urine culture pending. - Appreciate continued input from medical consultation. - Time Time Spent with patient: Less than 15 minutes
[2019-06-24] MEDS ORDERED: LORAZEPAM 0.5 MG TABLET PO PRN (22:15)
[2019-06-24] MEDS: ATORVASTATIN CALCIUM 40 MG TABLET PO SCH (23:40)
[2019-06-25] MEDS: ACETAMINOPHEN 325 MG TABLET PO SCH ×4 (00:53→18:25)
[2019-06-25] MEDS: INSULIN LISPRO 100 UNIT/ML 3 ML VIAL SUBCUT SCH ×4 (00:53→18:26)
[2019-06-25] MEDS: HEPARIN SOD (PORCINE) 5,000 UNIT/ML 1 ML VIAL SUBCUT SCH ×3 (05:20→21:27)
[2019-06-25] MEDS: PANTOPRAZOLE SODIUM 20 MG TABLET.DR PO SCH (05:21)
--- NOTE | 2019-06-25 08:24 | PDOC PROGRESS REPORT ---
Subjective Progress Note for:: 06/25/19 Subjective:: Patient is currently doing same New complaints little bit difficulty in urinations not sure how it is in the setting of the psych behavior will put the straight catheter\ Patient's denied any chest pain no short of breath Patient's appetite is good Patient denied any pain and does not require too much pain medications Patient's denied any abdominal pain no nausea no vomiting Reason For Visit: RIGHT HUMERAL SHAFT FRACTURE Physical Exam Vital Signs: Temp Pulse Resp BP Pulse Ox 98.3 F 88 18 149/58 H 100 06/24/19 20:22 06/24/19 20:22 06/24/19 20:22 06/24/19 20:22 06/24/19 20:22 Intake & Output 06/24/19 06/25/19 06/26/19 06:59 06:59 06:59 Intake Total 1077 610 Balance 1077 610 Weight 71.1 kg 71.1 kg General appearance: PRESENT: no acute distress, well-developed, well-nourished Head exam: PRESENT: atraumatic, normocephalic Eye exam: PRESENT: conjunctiva pink, EOMI, PERRLA. ABSENT: scleral icterus Ear exam: PRESENT: normal external ear exam Mouth exam: PRESENT: moist, tongue midline Neck exam: PRESENT: full ROM. ABSENT: carotid bruit, JVD, lymphadenopathy, thyromegaly Respiratory exam: PRESENT: clear to auscultation lars Cardiovascular exam: PRESENT: RRR. ABSENT: diastolic murmur, rubs, systolic murmur Pulses: PRESENT: normal dorsalis pedis pul, +2 pedal pulses bilateral Vascular exam: PRESENT: normal capillary refill GI/Abdominal exam: PRESENT: normal bowel sounds, soft. ABSENT: distended, guarding, mass, organolmegaly, rebound, tenderness Rectal exam: PRESENT: deferred Neurological exam: PRESENT: alert, awake, oriented to person, oriented to place, CN II-XII grossly intact. ABSENT: motor sensory deficit Psychiatric exam: PRESENT: appropriate affect, normal mood. ABSENT: homicidal ideation, suicidal ideation Skin exam: PRESENT: dry, intact, warm. ABSENT: cyanosis, rash Results Laboratory Results: 06/24/19 11:51 06/24/19 11:51 06/24/19 06/24/19 11:51 11:51 WBC 9.9 RBC 2.80 L Hgb 9.3 L Hct 26.6 L MCV 95 MCH 33.1 MCHC 34.9 RDW 14.8 H Plt Count 178 Sodium 133.3 L Potassium 4.3 Chloride 101 Carbon Dioxide 24 Anion Gap 8 BUN 31 H Creatinine 1.53 H Est GFR ( Amer) 41 L Glucose 146 H Calcium 8.8 Impressions: Elbow X-Ray 06/20/19 00:00 IMPRESSION: Very limited single oblique view of the right elbow, no gross fracture or malalignment Knee X-Ray 06/20/19 00:00 IMPRESSION: SUBACUTE TRANSVERSE FRACTURE OF THE PATELLA. MINIMAL STABLE DISTRACTION OF PATELLAR FRAGMENTS. NO GROSS BONY BRIDGING CALLUS Shoulder X-Ray 06/20/19 00:00 IMPRESSION: Acute spiral fracture proximal right humeral diaphysis with mild valgus angulation Chest X-Ray 06/20/19 08:55 IMPRESSION: Right proximal humerus fracture. No acute cardiopulmonary changes Head MRI 06/23/19 00:00 IMPRESSION: MINIMAL MICROVASCULAR ISCHEMIC CHANGE. OTHERWISE NORMAL STUDY. EVIDENCE OF ACUTE STROKE: NO. Assessment & Plan - Diagnosis (1) Accidental fall Qualifiers: Encounter type: initial encounter Qualified Code(s): W19.XXXA - Unspecified fall, initial encounter Is this a current diagnosis for this admission?: Yes (2) Hypertension Qualifiers: Hypertension type: essential hypertension Qualified Code(s): I10 - Essential (primary) hypertension Is this a current diagnosis for this admission?: Yes (3) Lupus Is this a current diagnosis for this admission?: Yes (4) Chronic kidney disease Qualifiers: Chronic kidney disease stage: stage 3 (moderate) Qualified Code(s): N18.3 - Chronic kidney disease, stage 3 (moderate) Is this a current diagnosis for this admission?: Yes (5) Coronary artery disease Qualifiers: Associated angina: with stable angina Is this a current diagnosis for this admission?: Yes (6) Diabetes Qualifiers: Diabetes mellitus type: type 2 Chronic kidney disease stage: stage 3 (moderate) Is this a current diagnosis for this admission?: Yes (7) Fracture of humeral shaft, right, closed Qualifiers: Encounter type: initial encounter Is this a current diagnosis for this admission?: Yes (8) Acute delirium Is this a current diagnosis for this admission?: Yes - Time Time Spent with patient: 15-24 minutes Level of Care: TELE Anticipated discharge: SNF Within: Other - Plan Summary Plan Summary: Will continues the current medications we will check the urine culture and analysis to rule out any underlying infections check the blood work today Patient is waiting for transfer to the nursing facility benefit to get the physical therapy involvement if is not We will add the Colace 100 mg twice a day
[2019-06-25 08:44] LABS: HEMATOCRIT 26.8 % (36.0-47.0); HEMOGLOBIN 9.4 g/dL (12.0-15.5); MEAN CORPUSCULAR HEMOGLOBIN 33.2 pg (27.0-33.4); MEAN CORPUSCULAR HGB CONC 35.2 g/dL (32.0-36.0); MEAN CORPUSCULAR VOLUME 95 fl (80-97); PLATELET COUNT 186 10^3/uL (150-450); RED BLOOD COUNT 2.84 10^6/uL (3.72-5.28); RED CELL DISTRIBUTION WIDTH 15.1 % (11.5-14.0); WHITE BLOOD COUNT 9.5 10^3/uL (4.0-10.5)
[2019-06-25 09:04] LABS: ANION GAP 9 (5-19); BLOOD UREA NITROGEN 32 mg/dL (7-20); CALCIUM 8.4 mg/dL (8.4-10.2); CARBON DIOXIDE 23 mmol/L (22-30); CHLORIDE 99 mmol/L (98-107); GLUCOSE 229 mg/dL (75-110); POTASSIUM 4.1 mmol/L (3.6-5.0)
[2019-06-25 10:25] LABS: APPEARANCE,URINE CLEAR; BILIRUBIN,URINE NEGATIVE (NEGATIVE); COLOR,URINE AMBER; GLUCOSE, URINE NEGATIVE (NEGATIVE); KETONES,URINE TRACE mg/dL (NEGATIVE); LEUKOCYTE ESTERASE,URINE NEGATIVE (NEGATIVE); NITRITE,URINE NEGATIVE (NEGATIVE); PROTEIN,URINE NEGATIVE (NEGATIVE); URINE SPECIFIC GRAVITY 1.015; UROBILINOGEN,URINE NEGATIVE mg/dL (<2.0)
[2019-06-25] MEDS: RANOLAZINE 500 MG TAB.SR.12H PO SCH ×2 (10:32→18:25)
[2019-06-25] MEDS: DOCUSATE SODIUM 100 MG CAPSULE PO SCH ×2 (10:32→18:25)
[2019-06-25] MEDS: ASPIRIN 81 MG TABLET, ENT COATED PO SCH (10:33)
[2019-06-25] MEDS: SITAGLIPTIN PHOSPHATE 25 MG TABLET PO SCH (10:33)
[2019-06-25] MEDS: LORATADINE 10 MG TABLET PO SCH (10:33)
[2019-06-25] MEDS: MAGNESIUM OXIDE 400 MG TABLET PO SCH (10:33)
[2019-06-25] MEDS: SERTRALINE HCL 50 MG TABLET PO SCH (10:33)
[2019-06-25] MEDS: ISOSORBIDE MONONITRATE 30 MG TAB.ER.24H PO SCH (10:33)
--- NOTE | 2019-06-25 17:10 | PDOC PROGRESS REPORT ---
Subjective Progress Note for:: 06/25/19 Subjective:: Patient is doing well today. She appears much better and more lucid. She reports also feeling much better and more appropriate. She also reports improved pain control in both her arm as well as increased comfort in her right lower leg Reason For Visit: RIGHT HUMERAL SHAFT FRACTURE Physical Exam Vital Signs: Temp Pulse Resp BP Pulse Ox 98.2 F 79 14 102/52 L 98 06/25/19 12:20 06/25/19 12:20 06/25/19 12:20 06/25/19 12:20 06/25/19 12:20 Intake & Output 06/24/19 06/25/19 06/26/19 06:59 06:59 06:59 Intake Total 1077 610 480 Output Total 700 Balance 1077 610 -220 Weight 71.1 kg 71.1 kg Physical Exam: General appearance: PRESENT: no acute distress, cooperative, well-nourished Head exam: PRESENT: atraumatic, normocephalic Eye exam: PRESENT: EOMI Ear exam: PRESENT: normal external ear exam Mouth exam: PRESENT: neck supple Neck exam: ABSENT: tracheal deviation Respiratory exam: PRESENT: symmetrical, unlabored. ABSENT: accessory muscle use, wheezes Pulses: PRESENT: normal radial pulses, normal dorsalis pedis pulse Vascular exam: PRESENT: normal capillary refill GI/Abdominal exam: ABSENT: distended, firm Neurological exam: PRESENT: alert, awake, oriented to person, oriented to place, oriented to time Psychiatric exam: PRESENT: appropriate affect. ABSENT: agitated Focused psych exam: ABSENT: catatonic Skin exam: PRESENT: intact. ABSENT: dry All as above aside from that noted in the HPI and the following: Right upper extremity is progressively swollen, ecchymotic, painful to any range of motion or palpation. Compartments remain soft Sensation is grossly intact to axillary radial median ulnar nerve, motor function is grossly intact distally Currently in a sling Right lower extremity, neurovascular intact, currently in a knee immobilizer. Results Laboratory Results: 06/25/19 08:33 06/25/19 08:33 06/25/19 06/25/19 06/25/19 08:30 08:33 08:33 WBC 9.5 RBC 2.84 L Hgb 9.4 L Hct 26.8 L MCV 95 MCH 33.2 MCHC 35.2 RDW 15.1 H Plt Count 186 Sodium 131.4 L Potassium 4.1 Chloride 99 Carbon Dioxide 23 Anion Gap 9 BUN 32 H Creatinine 1.42 H Est GFR ( Amer) 44 L Glucose 229 H Calcium 8.4 Urine Color ZANE Urine Appearance CLEAR Urine pH 5.0 Ur Specific [place] 1.015 Urine Protein NEGATIVE Urine Glucose (UA) NEGATIVE Urine Ketones TRACE H Urine Blood NEGATIVE Urine Nitrite NEGATIVE Ur Leukocyte Esterase NEGATIVE Urine RBC (Auto) 0 Impressions: Elbow X-Ray 06/20/19 00:00 IMPRESSION: Very limited single oblique view of the right elbow, no gross fracture or malalignment Knee X-Ray 06/20/19 00:00 IMPRESSION: SUBACUTE TRANSVERSE FRACTURE OF THE PATELLA. MINIMAL STABLE DISTRACTION OF PATELLAR FRAGMENTS. NO GROSS BONY BRIDGING CALLUS Shoulder X-Ray 06/20/19 00:00 IMPRESSION: Acute spiral fracture proximal right humeral diaphysis with mild valgus angulation Chest X-Ray 06/20/19 08:55 IMPRESSION: Right proximal humerus fracture. No acute cardiopulmonary changes Head MRI 06/23/19 00:00 IMPRESSION: MINIMAL MICROVASCULAR ISCHEMIC CHANGE. OTHERWISE NORMAL STUDY. EVIDENCE OF ACUTE STROKE: NO. Assessment & Plan - Diagnosis (1) Fracture of humeral shaft, right, closed Qualifiers: Encounter type: initial encounter Is this a current diagnosis for this admission?: Yes Plan: No change in plans, continue sling until seen in the office. Patient needs rehabilitation in order to prepare for return home. She lives alone. She has difficulty with ambulating due to both a patella and a proximal humerus fracture on the ipsilateral side. Her pain and strength as well as mobility will likely improve to the point that she can return home. Expected stay at rehab less than 30 days. (2) Diabetes Qualifiers: Diabetes mellitus type: type 2 Chronic kidney disease stage: stage 3 (moderate) Is this a current diagnosis for this admission?: Yes Plan: No change in home medications, currently well controlled. (3) History of myocardial infarction Is this a current diagnosis for this admission?: No Plan: Recent cardiac evaluation determined low current risk. (4) Coronary artery disease Qualifiers: Associated angina: with stable angina Is this a current diagnosis for this admission?: Yes (5) Chronic kidney disease Qualifiers: Chronic kidney disease stage: stage 3 (moderate) Qualified Code(s): N18.3 - Chronic kidney disease, stage 3 (moderate) Is this a current diagnosis for this admission?: Yes Plan: Creatinine is normalized to her baseline levels. (6) Right patella fracture Is this a current diagnosis for this admission?: Yes Plan: Continue knee immobilizer until seen in the office and cleared. Weightbearing as tolerated in knee immobilizer (7) Altered mental status Is this a current diagnosis for this admission?: Yes Plan: Much improved today. Nursing staff does report some continued hallucinations but improved over yesterday - Time Time Spent with patient: Less than 15 minutes
[2019-06-25] MEDS: ATORVASTATIN CALCIUM 40 MG TABLET PO SCH (21:29)
[2019-06-26] MEDS: INSULIN LISPRO 100 UNIT/ML 3 ML VIAL SUBCUT SCH ×3 (02:36→12:12)
[2019-06-26] MEDS: ACETAMINOPHEN 325 MG TABLET PO SCH ×3 (02:37→12:15)
[2019-06-26] MEDS: HEPARIN SOD (PORCINE) 5,000 UNIT/ML 1 ML VIAL SUBCUT SCH ×2 (07:02→14:20)
[2019-06-26] MEDS: PANTOPRAZOLE SODIUM 20 MG TABLET.DR PO SCH (07:05)
[2019-06-26] MEDS: CALCITRIOL 0.25 MCG CAPSULE PO SCH (09:51)
[2019-06-26] MEDS: ASPIRIN 81 MG TABLET, ENT COATED PO SCH (09:52)
[2019-06-26] MEDS: MAGNESIUM OXIDE 400 MG TABLET PO SCH (09:52)
[2019-06-26] MEDS: SITAGLIPTIN PHOSPHATE 25 MG TABLET PO SCH (09:52)
[2019-06-26] MEDS: RANOLAZINE 500 MG TAB.SR.12H PO SCH (09:52)
[2019-06-26] MEDS: SERTRALINE HCL 50 MG TABLET PO SCH (09:52)
[2019-06-26] MEDS: DOCUSATE SODIUM 100 MG CAPSULE PO SCH (09:52)
[2019-06-26] MEDS: LORATADINE 10 MG TABLET PO SCH (09:52)
[2019-06-26] MEDS: ISOSORBIDE MONONITRATE 30 MG TAB.ER.24H PO SCH (09:52)
[2019-06-26] MEDS ORDERED: CEPHALEXIN 500 MG CAPSULE PO SCH (10:00)
--- NOTE | 2019-06-26 13:15 | PDOC PROGRESS REPORT ---
Subjective Progress Note for:: 06/26/19 Subjective:: Continues to do well. She has no new complaints or symptoms. She is feeling much more lucid and ultimately has improved pain control and stability in her right upper extremity as well as right lower extremity. Reason For Visit: RIGHT HUMERAL SHAFT FRACTURE Physical Exam Vital Signs: Temp Pulse Resp BP Pulse Ox 98.1 F 69 17 115/56 L 99 06/26/19 06:57 06/26/19 06:57 06/26/19 06:57 06/26/19 06:57 06/26/19 06:57 Intake & Output 06/25/19 06/26/19 06/27/19 06:59 06:59 06:59 Intake Total 610 930 Output Total 2050 Balance 610 -1120 Weight 71.1 kg 71.1 kg Physical Exam: General appearance: PRESENT: no acute distress, cooperative, well-nourished Head exam: PRESENT: atraumatic, normocephalic Eye exam: PRESENT: EOMI Ear exam: PRESENT: normal external ear exam Mouth exam: PRESENT: neck supple Neck exam: ABSENT: tracheal deviation Respiratory exam: PRESENT: symmetrical, unlabored. ABSENT: accessory muscle use, wheezes Pulses: PRESENT: normal radial pulses, normal dorsalis pedis pulse Vascular exam: PRESENT: normal capillary refill GI/Abdominal exam: ABSENT: distended, firm Neurological exam: PRESENT: alert, awake, oriented to person, oriented to place, oriented to time Psychiatric exam: PRESENT: appropriate affect. ABSENT: agitated Focused psych exam: ABSENT: catatonic Skin exam: PRESENT: intact. ABSENT: dry All as above aside from that noted in the HPI and the following: Right upper extremity is progressively swollen, ecchymotic, painful to any range of motion or palpation. Compartments remain soft Sensation is grossly intact to axillary radial median ulnar nerve, motor function is grossly intact distally Currently in a sling Right lower extremity, neurovascular intact, currently in a knee immobilizer. Results Laboratory Results: 06/25/19 08:33 06/25/19 08:33 Impressions: Elbow X-Ray 06/20/19 00:00 IMPRESSION: Very limited single oblique view of the right elbow, no gross fracture or malalignment Knee X-Ray 06/20/19 00:00 IMPRESSION: SUBACUTE TRANSVERSE FRACTURE OF THE PATELLA. MINIMAL STABLE DISTRACTION OF PATELLAR FRAGMENTS. NO GROSS BONY BRIDGING CALLUS Shoulder X-Ray 06/20/19 00:00 IMPRESSION: Acute spiral fracture proximal right humeral diaphysis with mild valgus angulation Chest X-Ray 06/20/19 08:55 IMPRESSION: Right proximal humerus fracture. No acute cardiopulmonary changes Head MRI 06/23/19 00:00 IMPRESSION: MINIMAL MICROVASCULAR ISCHEMIC CHANGE. OTHERWISE NORMAL STUDY. EVIDENCE OF ACUTE STROKE: NO. Assessment & Plan - Diagnosis (1) Fracture of humeral shaft, right, closed Qualifiers: Encounter type: initial encounter Is this a current diagnosis for this admission?: Yes Plan: Continue current management, please see prior note. Nonweightbearing right upper extremity in a sling and immobilizer. Follow-up in my office in approximately 10 days for potential prescription for a Meneses brace (2) Diabetes Qualifiers: Diabetes mellitus type: type 2 Chronic kidney disease stage: stage 3 (moderate) Is this a current diagnosis for this admission?: Yes Plan: Continue home medications (3) History of myocardial infarction Is this a current diagnosis for this admission?: No Plan: No change in home medications, recently evaluated by cardiology who has found her to be cardiac stable (4) Coronary artery disease Qualifiers: Associated angina: with stable angina Is this a current diagnosis for this admission?: Yes (5) Chronic kidney disease Qualifiers: Chronic kidney disease stage: stage 3 (moderate) Qualified Code(s): N18.3 - Chronic kidney disease, stage 3 (moderate) Is this a current diagnosis for this admission?: Yes Plan: Creatinine improved. Near baseline now (6) Right patella fracture Is this a current diagnosis for this admission?: Yes (7) Altered mental status Is this a current diagnosis for this admission?: Yes Plan: Resolved. - Time Time Spent with patient: Less than 15 minutes
--- NOTE | 2019-06-26 13:21 | PDOC PROGRESS REPORT ---
Subjective Progress Note for:: 06/26/19 Subjective:: Patient is currently doing well Patient's denied any chest pain no short of breath His arm pain and leg pain is under well control not using too much medications Patient have a some urinary issue requiring straight cath yesterday but urine analysis all negatives patient without any urinary symptoms Reason For Visit: RIGHT HUMERAL SHAFT FRACTURE Physical Exam Vital Signs: Temp Pulse Resp BP Pulse Ox 98.1 F 69 17 115/56 L 99 06/26/19 06:57 06/26/19 06:57 06/26/19 06:57 06/26/19 06:57 06/26/19 06:57 Intake & Output 06/25/19 06/26/19 06/27/19 06:59 06:59 06:59 Intake Total 610 930 Output Total 2050 Balance 610 -1120 Weight 71.1 kg 71.1 kg General appearance: PRESENT: no acute distress, well-developed, well-nourished Head exam: PRESENT: atraumatic, normocephalic Eye exam: PRESENT: conjunctiva pink, EOMI, PERRLA. ABSENT: scleral icterus Ear exam: PRESENT: normal external ear exam Mouth exam: PRESENT: moist, tongue midline Neck exam: PRESENT: full ROM. ABSENT: carotid bruit, JVD, lymphadenopathy, thyromegaly Respiratory exam: PRESENT: clear to auscultation lars Cardiovascular exam: PRESENT: RRR. ABSENT: diastolic murmur, rubs, systolic murmur Pulses: PRESENT: normal dorsalis pedis pul, +2 pedal pulses bilateral Vascular exam: PRESENT: normal capillary refill GI/Abdominal exam: PRESENT: normal bowel sounds, soft. ABSENT: distended, g uarding, mass, organolmegaly, rebound, tenderness Rectal exam: PRESENT: deferred Extremities exam: ABSENT: pedal edema Musculoskeletal exam: PRESENT: ambulatory Neurological exam: PRESENT: alert, awake, oriented to person, oriented to place, oriented to time, oriented to situation, CN II-XII grossly intact. ABSENT: motor sensory deficit Psychiatric exam: PRESENT: appropriate affect, normal mood. ABSENT: homicidal ideation, suicidal ideation Skin exam: PRESENT: dry, intact, warm. ABSENT: cyanosis, rash Results Laboratory Results: 06/25/19 08:33 06/25/19 08:33 Impressions: Elbow X-Ray 06/20/19 00:00 IMPRESSION: Very limited single oblique view of the right elbow, no gross fract ure or malalignment Knee X-Ray 06/20/19 00:00 IMPRESSION: SUBACUTE TRANSVERSE FRACTURE OF THE PATELLA. MINIMAL STABLE DISTRACTION OF PATELLAR FRAGMENTS. NO GROSS BONY BRIDGING CALLUS Shoulder X-Ray 06/20/19 00:00 IMPRESSION: Acute spiral fracture proximal right humeral diaphysis with mild valgus angulation Chest X-Ray 06/20/19 08:55 IMPRESSION: Right proximal humerus fracture. No acute cardiopulmonary changes Head MRI 06/23/19 00:00 IMPRESSION: MINIMAL MICROVASCULAR ISCHEMIC CHANGE. OTHERWISE NORMAL STUDY. EVIDENCE OF ACUTE STROKE: NO. Assessment & Plan - Diagnosis (1) Accidental fall Qualifiers: Encounter type: initial encounter Qualified Code(s): W19.XXXA - Unspecified fall, initial encounter Is this a current diagnosis for this admission?: Yes (2) Hypertension Qualifiers: Hypertension type: essential hypertension Qualified Code(s): I10 - Esse ntial (primary) hypertension Is this a current diagnosis for this admission?: Yes (3) Lupus Is this a current diagnosis for this admission?: Yes (4) Chronic kidney disease Qualifiers: Chronic kidney disease stage: stage 3 (moderate) Qualified Code(s): N18.3 - Chronic kidney disease, stage 3 (moderate) Is this a current diagnosis for this admission?: Yes (5) Coronary artery disease Qualifiers: Associated angina: with stable angina Is this a current diagnosis for this admission?: Yes (6) Diabetes Qualifiers: Diabetes mellitus type: type 2 Chronic kidney disease stage: stage 3 (mo derate) Is this a current diagnosis for this admission?: Yes (7) Fracture of humeral shaft, right, closed Qualifiers: Encounter type: initial encounter Is this a current diagnosis for this admission?: Yes (8) Acute delirium Is this a current diagnosis for this admission?: Yes - Time Time Spent with patient: 15-24 minutes Level of Care: TELE Medications reviewed and adjusted accordingly: Yes Anticipated discharge: SNF Within: Other - Plan Summary Plan Summary: I think patient is currently doing well Patients can be discharged to the rehab with the 5 mg Tradjenta for diabetes once a day and give her Keflex 500 mg twice a day for 5 days dose Patient's also giving the lorazepam 0.5 mg twice a day Patient's other cardiac medications per cardiology same Follow cardiology as scheduled appointment Patients need to check the CBC and Chem-7 in 1 week in rehab Patient follow with the nephrology Patients need a fall precaution physical therapy Patient's also follow in office after patient is discharged from the rehab Continues to follow with a psychiatrist
--- NOTE | 2019-06-26 13:27 | PDOC DISCHARGE SUMMARY ---
Impression - Admit/DC Date/PCP Admission Date/Primary Care Provider: 06/20/19 10:48 TENISHA RIVAS MD Discharge Date: 06/26/19 - Discharge Diagnosis (1) Fracture of humeral shaft, right, closed Is this a current diagnosis for this admission?: Yes (2) Diabetes Is this a current diagnosis for this admission?: Yes (3) History of myocardial infarction Is this a current diagnosis for this admission?: No (4) Coronary artery disease Is this a current diagnosis for this admission?: Yes (5) Chronic kidney disease Is this a current diagnosis for this admission?: Yes (6) Right patella fracture Is this a current diagnosis for this admission?: Yes (7) Altered mental status Is this a current diagnosis for this admission?: Yes - Assessment Summary: Originally admitted on 06/20/2019 for a right humeral shaft fracture that extended into the proximal humerus. Due to this and her associated right-sided patella fracture that had occurred over a week earlier, the decision was made to admit because the patient is no longer able to care for herself at home with these injuries and her multiple comorbidities. We plan for operative intervention of the right proximal humerus on 06/21/2019 but after discussing the case further with the son and the patient and discussing her multiple risk factors for a nonideal surgical outcome we have opted for nonoperative management. Subsequent to that the patient was then evaluated and has been working with physical therapy while in house. Additionally she had a cardiac consult for preoperative clearance and further cardiac management for her history of coronary artery disease. Additionally she was found to have from her preoperative work-up acute on chronic kidney injury, as well as poorly controlled blood sugar. Due to these things the hospitalist was consulted. On 06/22/2019 she was noted also have altered mental status. The hospitalist provided recommendations and addit ionally the psychiatry service was consulted and their recommendations were also followed including some changes in her baseline home medication. An MRI of the brain was ordered to did not demonstrate any acute changes. Over the following few days after making some medication change the patient's mental status returned to baseline and she is much more lucid today. Over the last 2 days she has reported improved mental clarity near baseline as well as improved ability for her to self manage her right upper extremity position in the sling as well as her right lower extremity knee immobilizer and has had improvement in pain in these extremities as well. She will likely need a short course of rehab now that she is near her baseline aside from the injuries, in order to help her prior to going home alone where she lives without any assistance. She may require home care after discharge from rehab but overall rehab stay is expected to be less than 30 days. She is stable for discharge to rehab today. - Additional Information Discharge Diet: As Tolerated Discharge Activity: No Lifting/Push/Pulling, Supervised Activity Referrals: TENISHA RIVAS MD [Primary Care Provider] - Follow up as needed BEATRIS RUCKER JR, DO [ACTIVE PROVISIONAL STAFF] - (2 WEEKS) Prescriptions: Sitagliptin Phosphate [Januvia 25 mg Tablet] 25 mg PO DAILY 30 Days tablet Cephalexin Monohydrate [Keflex 500 mg Capsule] 500 mg PO Q12 6 Days capsule Sertraline HCl [Zoloft 50 mg Tablet] 100 mg PO DAILY 30 Days tablet Home Medications: Aspirin [Aspirin EC] 81 mg PO DAILY 07/25/13 Loratadine [Claritin 10 mg Tablet] 10 mg PO DAILY 07/25/13 Rosuvastatin Calcium [Crestor 20 mg Tablet] 20 mg PO DAILY 07/25/13 Alprazolam [Xanax] 2 mg PO TID 07/19/18 Isosorbide Mononitrate [Imdur 30 mg Tablet.er] 30 mg PO DAILY 07/19/18 Ranolazine [Ranexa] 1,000 mg PO BID 07/19/18 Biotin 10,000 mcg PO DAILY 06/20/19 Calcitriol [Rocaltrol] 0.25 mcg PO MOWEFR@1000 06/20/19 Magnesium Oxide [Mag-Ox 400 mg Tablet] 400 mg PO DAILY 06/20/19 Nitroglycerin [Nitrostat 0.4 mg (1/150 Gr) Tabs 25/Bottle] 1 tab SL Q5MP PRN 06/20/19 Tramadol HCl [Ultram 50 mg Tablet] 50 mg PO Q4HP PRN 06/20/19 Acetaminophen [Tylenol 325 mg Tablet] 650 mg PO Q6 tablet 06/22/19 Docusate Sodium [Colace 100 mg Capsule] 100 mg PO DAILY capsule 06/22/19 Oxycodone HCl [Oxy-Ir 5 mg Tablet] 5 mg PO Q6HP PRN tablet 06/22/19 Cephalexin Monohydrate [Keflex 500 mg Capsule] 500 mg PO Q12 6 Days capsule 06/26/19 Sertraline HCl [Zoloft 50 mg Tablet] 100 mg PO DAILY 30 Days tablet 06/26/19 Sitagliptin Phosphate [Januvia 25 mg Tablet] 25 mg PO DAILY 30 Days tablet 06/26/19 History of Present Illiness History of Present Illness: Admitting history is as follows from the HPI: TATO ROBLES is a 68 year old female with a recent history of a right patella fracture that was minimally displaced and seen in my office last week. Because it was minimally displaced and she had only mild pain, we treated her in a knee immobilizer and allowed her to return home weightbearing as tolerated as long as the knee was straight. However she has had some history of frequent falls and had a subsequent fall at home. She lives at home alone and fell on her right shoulder sustaining pain and debility and presented to the emergency department. The emergency department she is found to have a comminuted humeral shaft fracture. I had a long conversation with the patient regarding benefits and risks of different treatment options and the patient will likely need admission for rehab versus potential surgical management. She reports no changes in her knee and that she was wearing her knee immobilizer when she fell and did not land on her knee. She denies syncopal symptoms prior to the fall but does have a history of altered mental status, syncopal symptoms, heart disease and kidney disease as well as poorly controlled blood sugar with resulting altered mental status. Pain in the right shoulder is severe at this time worse with any motion improved with rest and pain medication. It is 8 out of 10 aching in nature. She denies distal paresthesia to the right hand denies loss of motor function. She denies head injury or current headache, denies loss of consciousness. Physical Exam Vital Signs: Temp Pulse Resp BP Pulse Ox 98.1 F 69 17 115/56 L 99 06/26/19 06:57 06/26/19 06:57 06/26/19 06:57 06/26/19 06:57 06/26/19 06:57 Intake & Output 06/25/19 06/26/19 06/27/19 06:59 06:59 06:59 Intake Total 610 930 Output Total 2050 Balance 610 -1120 Weight 71.1 kg 71.1 kg Results Laboratory Results: WBC 9.5 10^3/uL (4.0-10.5) 06/25/19 08:33 RBC 2.84 10^6/uL (3.72-5.28) L 06/25/19 08:33 Hgb 9.4 g/dL (12.0-15.5) L 06/25/19 08:33 Hct 26.8 % (36.0-47.0) L 06/25/19 08:33 MCV 95 fl (80-97) 06/25/19 08:33 MCH 33.2 pg (27.0-33.4) 06/25/19 08:33 MCHC 35.2 g/dL (32.0-36.0) 06/25/19 08:33 RDW 15.1 % (11.5-14.0) H 06/25/19 08:33 Plt Count 186 10^3/uL (150-450) 06/25/19 08:33 Lymph % (Auto) 17.8 % (13-45) 06/21/19 04:46 [place] % (Auto) 8.7 % (3-13) 06/21/19 04:46 Eos % (Auto) 1.9 % (0-6) 06/21/19 04:46 Baso % (Auto) 0.5 % (0-2) 06/21/19 04:46 Absolute Neuts (auto) 5.3 10^3/uL (1.7-8.2) 06/21/19 04:46 Absolute Lymphs (auto) 1.3 10^3/uL (0.5-4.7) 06/21/19 04:46 Absolute Monos (auto) 0.7 10^3/uL (0.1-1.4) 06/21/19 04:46 Absolute Eos (auto) 0.1 10^3/uL (0.0-0.6) 06/21/19 04:46 Absolute Basos (auto) 0.0 10^3/uL (0.0-0.2) 06/21/19 04:46 Seg Neutrophils % 71.1 % (42-78) 06/21/19 04:46 PT 12.9 SEC (11.4-15.4) 06/20/19 09:01 INR 0.97 06/20/19 09:01 Sodium 131.4 mmol/L (137-145) L 06/25/19 08:33 Potassium 4.1 mmol/L (3.6-5.0) 06/25/19 08:33 Chloride 99 mmol/L (98-107) 06/25/19 08:33 Carbon Dioxide 23 mmol/L (22-30) 06/25/19 08:33 Anion Gap 9 (5-19) 06/25/19 08:33 BUN 32 mg/dL (7-20) H 06/25/19 08:33 Creatinine 1.42 mg/dL (0.52-1.25) H 06/25/19 08:33 Est GFR ( Amer) 44 (>60) L 06/25/19 08:33 Est GFR (MDRD) Non-Af 37 (>60) L 06/25/19 08:33 Glucose 229 mg/dL (75-110) H 06/25/19 08:33 POC Glucose 174 mg/dL (70-110) H 06/26/19 11:52 Hemoglobin A1c % 8.6 % (4.7-6.0) H 06/21/19 04:46 Calcium 8.4 mg/dL (8.4-10.2) 06/25/19 08:33 Total Bilirubin 0.3 mg/dL (0.2-1.3) 06/20/19 09:01 Direct Bilirubin 0.3 mg/dL (0.0-0.4) 06/20/19 09:01 Neonat Total Bilirubin Not Reportable 06/20/19 09:01 Neonat Direct Bilirubin Not Reportable 06/20/19 09:01 Neonat Indirect Bili Not Reportable 06/20/19 09:01 AST 21 U/L (14-36) 06/20/19 09:01 ALT 15 U/L (<35) 06/20/19 09:01 Alkaline Phosphatase 100 U/L (38-126) 06/20/19 09:01 Total Protein 6.9 g/dL (6.3-8.2) 06/20/19 09:01 Albumin 4.1 g/dL (3.5-5.0) 06/20/19 09:01 Urine Color ZANE 06/25/19 08:30 Urine Appearance CLEAR 06/25/19 08:30 Urine pH 5.0 (5.0-9.0) 06/25/19 08:30 Ur Specific [place] 1.015 06/25/19 08:30 Urine Protein NEGATIVE mg/dL (NEGATIVE) 06/25/19 08:30 Urine Glucose (UA) NEGATIVE mg/dL (NEGATIVE) 06/25/19 08:30 Urine Ketones TRACE mg/dL (NEGATIVE) H 06/25/19 08:30 Urine Blood NEGATIVE (NEGATIVE) 06/25/19 08:30 Urine Nitrite NEGATIVE (NEGATIVE) 06/25/19 08:30 Urine Bilirubin NEGATIVE (NEGATIVE) 06/25/19 08:30 Urine Urobilinogen NEGATIVE mg/dL (<2.0) 06/25/19 08:30 Ur Leukocyte Esterase NEGATIVE (NEGATIVE) 06/25/19 08:30 Urine WBC (Auto) 8 /HPF 06/20/19 15:45 Urine RBC (Auto) 0 /HPF 06/25/19 08:30 U Hyaline Cast (Auto) 4 /LPF 06/20/19 15:45 Squamous Epi Cells Auto <1 /HPF 06/25/19 08:30 Urine Mucus (Auto) RARE /LPF 06/25/19 08:30 Urine Ascorbic Acid NEGATIVE (NEGATIVE) 06/25/19 08:30 COVID-19 Source NASOPHARYNGEAL 06/23/19 18:08 COVID-19 (MADELAINE) NOT DETECTED 06/23/19 18:08 Influenza A (Rapid) NEGATIVE (NEGATIVE) 06/23/19 18:08 Influenza B (Rapid) NEGATIVE (NEGATIVE) 06/23/19 18:08 Impressions: Elbow X-Ray 06/20/19 00:00 IMPRESSION: Very limited single oblique view of the right elbow, no gross fracture or malalignment Knee X-Ray 06/20/19 00:00 IMPRESSION: SUBACUTE TRANSVERSE FRACTURE OF THE PATELLA. MINIMAL STABLE DISTRACTION OF PATELLAR FRAGMENTS. NO GROSS BONY BRIDGING CALLUS Shoulder X-Ray 06/20/19 00:00 IMPRESSION: Acute spiral fracture proximal right humeral diaphysis with mild valgus angulation Chest X-Ray 06/20/19 08:55 IMPRESSION: Right proximal humerus fracture. No acute cardiopulmonary changes Head MRI 06/23/19 00:00 IMPRESSION: MINIMAL MICROVASCULAR ISCHEMIC CHANGE. OTHERWISE NORMAL STUDY. EVIDENCE OF ACUTE STROKE: NO. Stroke Is this a Stroke Patient?: No Acute Heart Failure - Is this a Heart Failure Patient?: No
[2019-06-26 15:28] VITALS: BP 108/61
== END 2019-06-26 16:19 | DRG 563 ==
LOC: ER 08:13 → EH 10:48 → 4S 14:27
PROVIDERS: ADMIT Orthopaedic Surgery; ATTEND Orthopaedic Surgery
DX: S42.301A Unspecified fracture of shaft of humerus, right arm, initial encounter for closed fracture (principal); N17.9 Acute kidney failure, unspecified; I13.0 Hypertensive heart and chronic kidney disease with heart failure and stage 1 through stage 4 chronic kidney disease, or unspecified chronic kidney disease; I50.20 Unspecified systolic (congestive) heart failure; N18.4 Chronic kidney disease, stage 4 (severe); S82.001A Unspecified fracture of right patella, initial encounter for closed fracture; D63.1 Anemia in chronic kidney disease; E11.22 Type 2 diabetes mellitus with diabetic chronic kidney disease; M32.9 Systemic lupus erythematosus, unspecified; W18.39XA Other fall on same level, initial encounter; E11.65 Type 2 diabetes mellitus with hyperglycemia; K52.9 Noninfective gastroenteritis and colitis, unspecified; E78.5 Hyperlipidemia, unspecified; J45.909 Unspecified asthma, uncomplicated; E03.9 Hypothyroidism, unspecified; M10.9 Gout, unspecified; F32.9 Major depressive disorder, single episode, unspecified; F41.1 Generalized anxiety disorder; I95.1 Orthostatic hypotension; M19.90 Unspecified osteoarthritis, unspecified site; K44.9 Diaphragmatic hernia without obstruction or gangrene; E11.51 Type 2 diabetes mellitus with diabetic peripheral angiopathy without gangrene; R44.1 Visual hallucinations; R41.0 Disorientation, unspecified; I25.119 Atherosclerotic heart disease of native coronary artery with unspecified angina pectoris; I25.2 Old myocardial infarction; Z79.84 Long term (current) use of oral hypoglycemic drugs; Z79.82 Long term (current) use of aspirin; Z79.899 Other long term (current) drug therapy; Z91.81 History of falling; Z86.73 Personal history of transient ischemic attack (TIA), and cerebral infarction without residual deficits; Z87.891 Personal history of nicotine dependence; Z88.8 Allergy status to other drugs, medicaments and biological substances; Z91.041 Radiographic dye allergy status; Z95.5 Presence of coronary angioplasty implant and graft; Z82.3 Family history of stroke; Z82.49 Family history of ischemic heart disease and other diseases of the circulatory system
CPT/HCPCS: 36415; 70551; 71045; 80048; 80053; 81001; 82962; 83036; 85025; 85027; 85610; 87635; 87804; 93005; 93010; 93306; 99285; J0690; J1630; J1644; J1815; J2270; J2405; J3490; J7030; J7060; L3650

== ENCOUNTER 2019-06-27 04:43 | Emergency (ER) | payer MEDICARE, MEDICAID ==
[2019-06-27] MEDS ORDERED: OXYCODONE-ACETAMINOPHEN 5-325 MG TABLET PO ONE (05:03)
[2019-06-27] MEDS ORDERED: ONDANSETRON 4 MG TAB.RAPDIS PO ONE (05:03)
--- NOTE | 2019-06-27 05:07 | ER Document Report ---
ED Extremity Problem, Upper - General Chief Complaint: Arm Injury Stated Complaint: ARM INJURY Time Seen by Provider: 06/27/19 04:56 Primary Care Provider: TENISHA RIVAS MD [Primary Care Provider] - Follow up as needed Notes: Patient is a 68-year-old female that comes emergency department for chief complaint of right shoulder and right arm pain. She states that she originally had a right patellar fracture, then 1 week later she fell again had a right humeral shaft fracture which she was admitted to the hospital here for with Dr. Betts on 06/20/2019. Because patient was no longer able to care for herself with multiple fractures, and because patient was decided to be treated with nonoperative management because of multiple risk factors for surgery, patient was discharged to rehab facility for recovery of this. Patient states that she "kept hearing clunking like it was popping in and out", she states this was reimaged by the facility and this was reportedly concerning so she was sent back to the emergency department. Patient denies any particular pain now, she is wearing a shoulder immobilizer and knee immobilizer. She states she is on Ranexa blood thinner. Patient states it is possible that when she was discharged she had an injury during transport but she denies falling again, she denies any other injuries, she denies any other complaints. She denies numbness and she states she is able to move her right wrist and hand/fingers. TRAVEL OUTSIDE OF THE [place] IN LAST 30 DAYS: No - Related Data Allergies/Adverse Reactions: Beta-Blockers (Beta-Adrenergic Bloc Allergy (Verified 06/27/19 06:34) Iodinated Contrast Media [IV Dye, Iodine Containing] Allergy (Verified 06/27/19 06:34) Past Medical History - General Information source: Patient, Emergency Med Personnel - Social History Smoking Status: Never Smoker Frequency of alcohol use: None Drug Abuse: None Lives with: Other - rehab Family History: Reviewed & Not Pertinent - Past Medical History Cardiac Medical History: Reports: Hx Coronary Artery Disease, Hx Heart Attack, Hx Hypercholesterolemia, Hx Hypertension Pulmonary Medical History: Reports: Hx Asthma Neurological Medical History: Denies: Hx Cerebrovascular Accident, Hx Seizures Endocrine Medical History: Reports: Hx Diabetes Mellitus Type 2, Hx Hypothyroidism Renal/ Medical History: Reports: Hx End Stage Renal Disease. Denies: Hx Peritoneal Dialysis GI Medical History: Reports: Hx Diverticulitis, Hx Hiatal Hernia, Hx Ulcer. Denies: Hx Hepatitis Musculoskeletal Medical History: Reports Hx Arthritis, Reports Hx Gout, Reports Hx Systemic Lupus Erythematosus Psychiatric Medical History: Reports: Hx Depression Infectious Medical History: Denies: Hx Hepatitis Past Surgical History: Reports: Hx Cardiac Catheterization, Hx Cardiac Surgery - stents, Hx Hysterectomy, Hx Orthopedic Surgery - ORIF left ankle in 2006, Hx Tonsillectomy. Denies: Hx Mastectomy, Hx Open Heart Surgery, Hx Pacemaker - Immunizations Hx Diphtheria, Pertussis, Tetanus Vaccination: Yes Review of Systems - Review of Systems Constitutional: No symptoms reported EENT: No symptoms reported Cardiovascular: No symptoms reported Respiratory: No symptoms reported Gastrointestinal: No symptoms reported Genitourinary: No symptoms reported Female Genitourinary: No symptoms reported Musculoskeletal: See HPI Skin: No symptoms reported Hematologic/Lymphatic: No symptoms reported Neurological/Psychological: No symptoms reported Physical Exam - Vital signs Vitals: Pulse Ox 100 06/27/19 04:52 - Notes Notes: GENERAL: Alert, interacts well. No acute distress. HEAD: Normocephalic, atraumatic. EYES: Pupils equal, round, and reactive to light. Extraocular movements intact. ENT: Oral mucosa moist, tongue midline. Oropharynx unremarkable. Airway patent. NECK: Full range of motion. Supple. Trachea midline. No lymphadenopathy. LUNGS: Clear to auscultation bilaterally, no wheezes, rales, or rhonchi. No respiratory distress. Non-tender chest wall. HEART: Regular rate and rhythm. No murmur ABDOMEN: Soft, non-tender. Non-distended. Bowel sounds present in all 4 quadrants. GENITOURINARY: Deferred EXTREMITIES: Shoulder immobilizer is in place in the right upper extremity. Patient has normal range of motion at the wrist, normal range of motion of the fingers, normal radial pulse, normal capillary refill and sensation. There is significant swelling and ecchymosis especially to the right proximal humeral area. Patient has a knee immobilizer on the right leg. Left extremities unremarkable. BACK: no cervical, thoracic, lumbar midline tenderness. No saddle anesthesia, normal distal neurovascular exam. Moves all extremities in full range of motion. NEUROLOGICAL: Alert and oriented to person place but not time or events. Normal speech. Cranial nerves II through XII grossly intact. Strength 5/5 in all extremities. PSYCH: Normal affect, normal mood. SKIN: Warm, dry, normal turgor. No rashes or lesions noted. Course - Re-evaluation Re-evalutation: Patient is a poor historian. I gathered some information from her, read the discharge records by Dr. Betts. Patient does not have neurovascular deficits from this although she does have significant bruising and swelling. Questionable reinjury. X-ray imaging reviewed, radiology reviewed, report given showing no significant change from prior. Patient was provided with report, I did discuss this, patient will follow-up with Dr. Betts. Decision is already made for patient to be in rehab and to treat this nonsurgically. Patient did state understanding and agreement. - Vital Signs Vital signs: Temp Pulse Resp BP Pulse Ox 98.3 F 70 116/65 96 06/27/19 05:21 06/27/19 05:21 06/27/19 06:01 06/27/19 06:01 Discharge - Discharge Clinical Impression: Right arm pain Fracture of humeral shaft, right, closed Qualifiers: Encounter type: initial encounter Fracture morphology: comminuted Fracture alignment: displaced Qualified Code(s): S42.351A - Displaced comminuted fracture of shaft of humerus, right arm, initial encounter for closed fracture Condition: Stable Disposition: HOME, SELF-CARE Additional Instructions: Unfortunately swelling and bruising is normal for this injury. The x-ray does not show any new findings. It is normal to have some "clunking". However keep the arm immobilized as much as possible. Follow up with Dr. Betts for additional management. Return for any concerning symptoms -numbness, inability to move your fingers, or any other concerning or worsening symptoms. Referrals: TENISHA RIVAS MD [Primary Care Provider] - Follow up as needed
--- NOTE | 2019-06-27 06:28 | RADIOLOGY REPORT (SQ) ---
Right humerus two view on 06/27/2019 at 5:36 AM CLINICAL INDICATION: Pain, question reinjury COMPARISON: 06/20/2019 FINDINGS: There is again noted a now subacute, comminuted, displaced and angulated proximal humerus diaphysis fracture that extends into the humeral neck. There is lateral displacement with medial angulation of the main distal fracture fragment. No new fracture is noted. There is no dislocation. IMPRESSION: No significant change in comminuted displaced proximal humerus diaphysis fracture.
[2019-06-27] MEDS ORDERED: OXYCODONE-ACETAMINOPHEN 5-325 MG TABLET PO PRN (07:01)
[2019-06-27 08:23] VITALS: BP 121/77
== END 2019-06-27 08:36 | disposition home or self-care (01) ==
LOC: ER 04:43
DX: S42.351D Displaced comminuted fracture of shaft of humerus, right arm, subsequent encounter for fracture with routine healing (principal); M79.601 Pain in right arm; M25.511 Pain in right shoulder; W19.XXXD Unspecified fall, subsequent encounter; Z88.8 Allergy status to other drugs, medicaments and biological substances; I25.10 Atherosclerotic heart disease of native coronary artery without angina pectoris; I25.2 Old myocardial infarction; I10 Essential (primary) hypertension; J45.909 Unspecified asthma, uncomplicated; E11.9 Type 2 diabetes mellitus without complications
CPT/HCPCS: 99284; 73060; A9270 ×2; S0119

== ENCOUNTER 2019-07-31 05:06 | Emergency (ER) | payer MEDICARE, MEDICAID ==
[2019-07-31] MEDS ORDERED: NORMAL SALINE 1000 ML 1,000 ML IV ONE ×2 (06:36→08:13)
--- NOTE | 2019-07-31 06:36 | ER Document Report ---
ED Extremity Problem, Upper - General Chief Complaint: Arm Pain Stated Complaint: RIGHT ARM/RIGHT LEG PAIN Time Seen by Provider: 07/31/19 05:57 Primary Care Provider: TENISHA RIVAS MD [Primary Care Provider] - Follow up as needed Mode of Arrival: Medic Information source: Patient TRAVEL OUTSIDE OF THE [place] IN LAST 30 DAYS: No - HPI Notes: Patient presents stating that she feels she may have passed out. She says that she laid down to take a nap and did not wake up for a long time so she feels she may have passed out and not just fell asleep. She denies any symptoms now. She has no new pain. She has some chronic pain in the right arm from a fracture but no other new pain. No significant new shortness of breath. No cough cold or congestion. No known COVID exposures. She has some generalized weakness. She states that she only woke up because her therapy cat was sitting on her chest licking her face. Patient's right arm pain has been constant. It is worse with movement and better with rest. It radiates up and down the right arm. It is moderate in intensity. No vomiting or diarrhea recently. - Related Data Allergies/Adverse Reactions: Beta-Blockers (Beta-Adrenergic Bloc Allergy (Verified 07/31/19 07:03) Iodinated Contrast Media [IV Dye, Iodine Containing] Allergy (Verified 07/31/19 07:03) Past Medical History - General Information source: Patient - Social History Smoking Status: Former Smoker Frequency of alcohol use: None Drug Abuse: None Family History: Reviewed & Not Pertinent Patient has homicidal ideation: No - Past Medical History Cardiac Medical History: Reports: Hx Coronary Artery Disease, Hx Heart Attack, Hx Hypercholesterolemia, Hx Hypertension Pulmonary Medical History: Reports: Hx Asthma Neurological Medical History: Denies: Hx Cerebrovascular Accident, Hx Seizures Endocrine Medical History: Reports: Hx Diabetes Mellitus Type 2, Hx Hypothyroidism Renal/ Medical History: Reports: Hx End Stage Renal Disease. Denies: Hx Peritoneal Dialysis GI Medical History: Reports: Hx Diverticulitis, Hx Hiatal Hernia, Hx Ulcer. Denies: Hx Hepatitis Musculoskeletal Medical History: Reports Hx Arthritis, Reports Hx Gout, Reports Hx Systemic Lupus Erythematosus Psychiatric Medical History: Reports: Hx Depression Infectious Medical History: Denies: Hx Hepatitis Past Surgical History: Reports: Hx Cardiac Catheterization, Hx Cardiac Surgery - stents, Hx Hysterectomy, Hx Orthopedic Surgery - ORIF left ankle in 2006, Hx Tonsillectomy. Denies: Hx Mastectomy, Hx Open Heart Surgery, Hx Pacemaker - Immunizations Hx Diphtheria, Pertussis, Tetanus Vaccination: Yes Review of Systems - Review of Systems Constitutional: denies: Chills, Fever Cardiovascular: denies: Chest pain, Dyspnea Respiratory: denies: Cough, Short of breath -: Yes All other systems reviewed and negative Physical Exam - Vital signs Vitals: Temp Pulse Resp BP Pulse Ox 97.2 F 88 16 116/64 99 07/31/19 05:13 07/31/19 05:13 07/31/19 05:13 07/31/19 05:13 07/31/19 05:13 Interpretation: Normal - General General appearance: Appears well, Alert - HEENT Head: Normocephalic, Atraumatic Eyes: Normal Pupils: PERRL - Respiratory Respiratory status: No respiratory distress Chest status: Nontender Breath sounds: Normal Chest palpation: Normal - Cardiovascular Rhythm: Regular Heart sounds: Normal auscultation Murmur: No - Abdominal Inspection: Normal Distension: No distension Bowel sounds: Normal Tenderness: Nontender Organomegaly: No organomegaly - Back Back: Normal, Nontender - Extremities General upper extremity: Normal inspection, Nontender, Normal color, Normal ROM, Normal temperature General lower extremity: Normal inspection, Nontender, Normal color, Normal ROM, Normal temperature, Normal weight bearing. No: Ba's sign - Neurological Neuro grossly intact: Yes Cognition: Normal Orientation: AAOx4 Yu Coma Scale Eye Opening: Spontaneous [place] Coma Scale Verbal: Oriented [place] Coma Scale Motor: Obeys Commands [place] Coma Scale Total: 15 Speech: Normal Motor strength normal: LUE, RUE, LLE, RLE Sensory: Normal - Psychological Associated symptoms: Normal affect, Normal mood - Skin Skin Temperature: Warm Skin Moisture: Dry Skin Color: Normal Course - Re-evaluation Re-evalutation: 07/31/19 08:54 Patient presents stating that she fears she may have passed out because when she fell asleep she did not wake up when she felt she should have. I cannot find any evidence that patient had an actual syncopal episode. I see no risk factors for this. I was going to obtain a CTA 1 patient initially told me she passed out. However she is allergic to IV dye and when I got further history I did not feel that it was worth pursuing. She is not tachypneic or tachycardic. And she has had no chest pain or significant shortness of breath. I have called and discussed the patient with Dr. Rivas who feels that the patient has okay for discharge and can follow-up in his office. Her creatinine is slightly elevated at 2.2. Her baseline is 1.5-1.8. I have rehydrated her here. I have educated her that her creatinine is a little bit elevated and that she needs to have it rechecked later this week. - Vital Signs Vital signs: Temp Pulse Resp BP Pulse Ox 97.9 F 88 16 116/64 99 07/31/19 05:23 07/31/19 05:13 07/31/19 05:13 07/31/19 05:13 07/31/19 05:13 - Laboratory Result Diagrams: 07/31/19 07:05 07/31/19 07:05 Laboratory results interpreted by me: 07/31/19 07/31/19 07/31/19 07:05 07:05 07:41 RBC 3.27 L Hgb 10.6 L Hct 31.5 L RDW 15.9 H Sodium 136.2 L BUN 37 H Creatinine 2.20 H Est GFR ( Amer) 27 L Est GFR (MDRD) Non-Af 22 L Glucose 164 H AST 63 H Alkaline Phosphatase 237 H Ur Leukocyte Esterase SMALL H - EKG Interpretation by Me EKG shows normal: Sinus rhythm Rate: Normal - 86 Rhythm: NSR [place]/QRS: Left axis deviation. No: Right axis deviation Discharge - Discharge Clinical Impression: Weakness, Chronic kidney disease, stage 3, Dehydration Condition: Stable Disposition: HOME, SELF-CARE Instructions: Dehydration (OM) Additional Instructions: Your creatinine today was 2.2. Normal for you is 1.5-1.8. Please call Dr. Rivas today to arrange for a recheck. Please have your creatinine rechecked within the next week. Please make sure you stay well-hydrated Referrals: TENISHA RIVAS MD [Primary Care Provider] - Follow up as needed
[2019-07-31 07:15] LABS: ABSOLUTE EOSINOPHILS # (AUTO) 0.2 10^3/uL (0.0-0.6); ABSOLUTE LYMPHOCYTES (AUTO) 1.2 10^3/uL (0.5-4.7); ABSOLUTE MONOCYTES (AUTO) 0.7 10^3/uL (0.1-1.4); ABSOLUTE NEUT (AUTO) 6.1 10^3/uL (1.7-8.2); BASOPHILS % (AUTO) 0.6 % (0-2); EOSINOPHILS % (AUTO) 1.9 % (0-6); HEMATOCRIT 31.5 % (36.0-47.0); HEMOGLOBIN 10.6 g/dL (12.0-15.5); LYMPHOCYTES % (AUTO) 15.1 % (13-45); MEAN CORPUSCULAR HEMOGLOBIN 32.5 pg (27.0-33.4); MEAN CORPUSCULAR HGB CONC 33.7 g/dL (32.0-36.0); MEAN CORPUSCULAR VOLUME 96 fl (80-97); PLATELET COUNT 212 10^3/uL (150-450); RED BLOOD COUNT 3.27 10^6/uL (3.72-5.28); RED CELL DISTRIBUTION WIDTH 15.9 % (11.5-14.0); SEGMENTED NEUTROPHILS % (AUTO) 74.4 % (42-78); TOTAL CELLS COUNTED % (AUTO) 100 %; WHITE BLOOD COUNT 8.2 10^3/uL (4.0-10.5)
[2019-07-31 07:32] LABS: ALKALINE PHOSPHATASE 237 U/L (38-126); ANION GAP 10 (5-19); ASPARTATE AMINO TRANSFERASE 63 U/L (14-36); BILIRUBIN,DIRECT 0.1 mg/dL (0.0-0.4); BILIRUBIN,TOTAL 0.6 mg/dL (0.2-1.3); BLOOD UREA NITROGEN 37 mg/dL (7-20); CALCIUM 8.7 mg/dL (8.4-10.2); CARBON DIOXIDE 22 mmol/L (22-30); CHLORIDE 104 mmol/L (98-107); GLUCOSE 164 mg/dL (75-110); TOTAL PROTEIN 6.7 g/dL (6.3-8.2)
[2019-07-31 08:27] LABS: COLOR,URINE AMBER
[2019-07-31 08:28] LABS: APPEARANCE,URINE SLIGHTLY HAZY; BILIRUBIN,URINE NEGATIVE (NEGATIVE); GLUCOSE, URINE NEGATIVE (NEGATIVE); KETONES,URINE NEGATIVE (NEGATIVE); PROTEIN,URINE NEGATIVE (NEGATIVE); URINE SPECIFIC GRAVITY 1.015; UROBILINOGEN,URINE NEGATIVE mg/dL (<2.0)
[2019-07-31 08:29] LABS: ADD MANUAL MICROSCOPIC YES; LEUKOCYTE ESTERASE,URINE SMALL (NEGATIVE); NITRITE,URINE NEGATIVE (NEGATIVE)
[2019-07-31 08:30] LABS: RBC,URINE NONE SEEN /HPF
--- NOTE | 2019-07-31 08:39 | EKG REPORT ---
SEVERITY:- OTHERWISE NORMAL ECG - SINUS RHYTHM BORDERLINE LEFT AXIS DEVIATION : Confirmed by: Rufina Wade 31-Jul-2019 08:38:20
[2019-07-31 10:03] VITALS: BP 131/70
== END 2019-07-31 11:08 | disposition home or self-care (01) ==
LOC: ER 05:06
DX: E86.0 Dehydration (principal); I12.9 Hypertensive chronic kidney disease with stage 1 through stage 4 chronic kidney disease, or unspecified chronic kidney disease; E11.22 Type 2 diabetes mellitus with diabetic chronic kidney disease; N18.3 Chronic kidney disease, stage 3 (moderate); R53.1 Weakness; M79.601 Pain in right arm; G89.29 Other chronic pain; I25.10 Atherosclerotic heart disease of native coronary artery without angina pectoris; I25.2 Old myocardial infarction; J45.909 Unspecified asthma, uncomplicated; Z95.5 Presence of coronary angioplasty implant and graft; Z88.8 Allergy status to other drugs, medicaments and biological substances; Z91.041 Radiographic dye allergy status; Z87.891 Personal history of nicotine dependence
CPT/HCPCS: 93005; 99285; 96360; 96361; 36415; 85025; 80053; 81001; 93010; J7030

== ENCOUNTER → 2019-10-14 | Outpatient (CLI) | payer MEDICARE, MEDICAID ==
[2019-10-14 08:39] LABS: ABSOLUTE BASOPHILS # (AUTO) 0.1 10^3/uL (0.0-0.2); ABSOLUTE EOSINOPHILS # (AUTO) 0.2 10^3/uL (0.0-0.6); ABSOLUTE LYMPHOCYTES (AUTO) 2.3 10^3/uL (0.5-4.7); ABSOLUTE MONOCYTES (AUTO) 0.6 10^3/uL (0.1-1.4); ABSOLUTE NEUT (AUTO) 4.8 10^3/uL (1.7-8.2); BASOPHILS % (AUTO) 0.7 % (0-2); EOSINOPHILS % (AUTO) 3.1 % (0-6); HEMATOCRIT 32.9 % (36.0-47.0); HEMOGLOBIN 11.4 g/dL (12.0-15.5); LYMPHOCYTES % (AUTO) 28.4 % (13-45); MEAN CORPUSCULAR HEMOGLOBIN 31.9 pg (27.0-33.4); MEAN CORPUSCULAR HGB CONC 34.6 g/dL (32.0-36.0); MEAN CORPUSCULAR VOLUME 92 fl (80-97); MONOCYTES % (AUTO) 7.2 % (3-13); PLATELET COUNT 181 10^3/uL (150-450); RED BLOOD COUNT 3.57 10^6/uL (3.72-5.28); RED CELL DISTRIBUTION WIDTH 16.2 % (11.5-14.0); SEGMENTED NEUTROPHILS % (AUTO) 60.6 % (42-78); TOTAL CELLS COUNTED % (AUTO) 100 %; WHITE BLOOD COUNT 7.9 10^3/uL (4.0-10.5)
[2019-10-14 08:56] LABS: ALBUMIN 3.9 g/dL (3.5-5.0); ANION GAP 8 (5-19); BLOOD UREA NITROGEN 25 mg/dL (7-20); CALCIUM 9.3 mg/dL (8.4-10.2); CARBON DIOXIDE 20 mmol/L (22-30); CHLORIDE 111 mmol/L (98-107); GLUCOSE 105 mg/dL (75-110); PHOSPHORUS 3.1 mg/dL (2.5-4.5); POTASSIUM 4.6 mmol/L (3.6-5.0)
== END ==
LOC: OD 08:12
PROVIDERS: ATTEND Internal Medicine Nephrology
DX: E11.22 Type 2 diabetes mellitus with diabetic chronic kidney disease (principal); N18.4 Chronic kidney disease, stage 4 (severe); D63.1 Anemia in chronic kidney disease; E87.5 Hyperkalemia
CPT/HCPCS: 36415; 80069; 82306; 83970; 85025

== ENCOUNTER 2019-11-10 13:02 | Emergency (ER) | payer MEDICARE, MEDICAID ==
--- NOTE | 2019-11-10 13:50 | ER Document Report ---
ED Medical Screen (RME) - General Chief Complaint: Fall Injury Stated Complaint: FALL - RIGHT SHOULDER PAIN Primary Care Provider: TENISHA RIVAS MD [Primary Care Provider] - Follow up as needed Notes: 69-year-old female with past medical history of anemia and right shoulder and arm fracture presenting today with continued right shoulder pain and right arm pain since a second fall 2 weeks ago. She states that initially injury occurred back in May she fell on her right shoulder and arm and her arm was fractured. States that she saw Dr. Betts who recommended rehab versus operation at that time. After her most recent fall 2 weeks ago she did not come to the emergency department. She has significant right arm bruising. She has decreased range of motion, inability to raise right arm above 90 degree angle. She states that she occasionally has some tingling sensation in her hands. Takes aspirin daily. Has not taken anything for pain, states she grins and bears it. PE: Significant ecchymosis along right arm. Deformity of right humerus. ROM decreased, able to flex right arm to 90 degrees. Good sensation to light touch. 5/5 strength. Capillary refill < 2 seconds, good radial pulse bilaterally I have greeted and performed a rapid initial assessment of this patient. A comprehesive ED assessment and evaluation of this patient, analysis of test results and completion of the medical decision-making process will be conducted by additional ED providers. TRAVEL OUTSIDE OF THE [place] IN LAST 30 DAYS: No - Related Data Allergies/Adverse Reactions: Beta-Blockers (Beta-Adrenergic Bloc Allergy (Verified 11/10/19 13:34) Iodinated Contrast Media [IV Dye, Iodine Containing] Allergy (Verified 11/10/19 13:34) Home Medications: asa, insulin Past Medical History - Social History Chew tobacco use (# tins/day): No Drug Abuse: None - Past Medical History Cardiac Medical History: Reports: Hx Coronary Artery Disease, Hx Heart Attack, Hx Hypercholesterolemia, Hx Hypertension Pulmonary Medical History: Reports: Hx Asthma Neurological Medical History: Denies: Hx Cerebrovascular Accident, Hx Seizures Endocrine Medical History: Reports: Hx Diabetes Mellitus Type 2, Hx Hypothyroidism Renal/ Medical History: Reports: Hx End Stage Renal Disease. Denies: Hx Peritoneal Dialysis GI Medical History: Reports: Hx Diverticulitis, Hx Hiatal Hernia, Hx Ulcer. Denies: Hx Hepatitis Musculoskeltal Medical History: Reports Hx Arthritis, Reports Hx Gout, Reports Hx Systemic Lupus Erythematosus Psychiatric Medical History: Reports: Hx Depression Infectious Medical History: Denies: Hx Hepatitis Past Surgical History: Reports: Hx Cardiac Catheterization, Hx Cardiac Surgery - stents, Hx Hysterectomy, Hx Orthopedic Surgery - ORIF left ankle in 2006, Hx Tonsillectomy. Denies: Hx Mastectomy, Hx Open Heart Surgery, Hx Pacemaker - Immunizations Hx Diphtheria, Pertussis, Tetanus Vaccination: Yes Review of Systems - Review of Systems Constitutional: No symptoms reported EENT: No symptoms reported Cardiovascular: No symptoms reported Respiratory: No symptoms reported Gastrointestinal: No symptoms reported Genitourinary: No symptoms reported Female Genitourinary: No symptoms reported Musculoskeletal: See HPI Skin: See HPI Doctor's Discharge - Discharge Referrals: TENISHA RIVAS MD [Primary Care Provider] - Follow up as needed
[2019-11-10] MEDS ORDERED: ACETAMINOPHEN 325 MG TABLET PO ONE (13:55)
--- NOTE | 2019-11-10 15:00 | RADIOLOGY REPORT (SQ) ---
EXAM DESCRIPTION: HUMERUS RIGHT IMAGES COMPLETED DATE/TIME: 11/10/2019 2:25 pm REASON FOR STUDY: fall 2 weeks ago COMPARISON: Right humerus radiographs 06/27/2019 ; right shoulder radiographs 06/20/2019 NUMBER OF VIEWS: Two views. TECHNIQUE: Two radiographic images were acquired of the right humerus to include elbow and shoulder in at least one projection. LIMITATIONS: None. FINDINGS: MINERALIZATION: Normal. BONES: There is robust callus formation about the comminuted and displaced proximal humerus diaphysea l fracture. Additionally, remote right-sided rib fractures are similar to the comparison study. No s ignificant osteophytes. SOFT TISSUES: No obvious swelling or foreign body. OTHER: No other significant finding. IMPRESSION: Robust callus formation about the comminuted and displaced proximal humerus fracture whi ch is similar in configuration. No new fractures are identified. TECHNICAL DOCUMENTATION: JOB ID: [id number] 2010 [employer]- All Rights Reserved Reading location - IP/workstation name: [email or web address]
--- NOTE | 2019-11-10 15:00 | RADIOLOGY REPORT (SQ) ---
EXAM DESCRIPTION: SHOULDER RIGHT 2 OR MORE VIEWS IMAGES COMPLETED DATE/TIME: 11/10/2019 2:25 pm REASON FOR STUDY: fall 2 weeks ago COMPARISON: Right shoulder radiographs 06/20/2019 NUMBER OF VIEWS: Three views. TECHNIQUE: Internal rotation, external rotation, and Y view images acquired of the right shoulder. LIMITATIONS: None. FINDINGS: MINERALIZATION: Normal. BONES: Robust callus formation is present about the comminuted and displaced proximal humerus diaphys eal fracture. No new fractures are identified. No significant osteophytes. Remote right-sided rib f ractures are unchanged. GLENOHUMERAL JOINT: No significant findings. ACROMIOCLAVICULAR JOINT: No large osteophytes. SOFT TISSUES: No calcifications. VISUALIZED RIBS, SPINE, AND LUNG: No other significant finding. OTHER: No other significant finding. IMPRESSION: Robust callus formation about the known proximal humerus fracture. No new fractures are identified. TECHNICAL DOCUMENTATION: JOB ID: [id number] 2010 [employer]- All Rights Reserved Reading location - IP/workstation name: [email or web address]
[2019-11-10 15:02] LABS: ABSOLUTE BASOPHILS # (AUTO) 0.1 10^3/uL (0.0-0.2); ABSOLUTE EOSINOPHILS # (AUTO) 0.2 10^3/uL (0.0-0.6); ABSOLUTE LYMPHOCYTES (AUTO) 1.6 10^3/uL (0.5-4.7); ABSOLUTE MONOCYTES (AUTO) 0.7 10^3/uL (0.1-1.4); ABSOLUTE NEUT (AUTO) 6.4 10^3/uL (1.7-8.2); BASOPHILS % (AUTO) 0.9 % (0-2); EOSINOPHILS % (AUTO) 2.3 % (0-6); HEMATOCRIT 31.5 % (36.0-47.0); HEMOGLOBIN 10.6 g/dL (12.0-15.5); LYMPHOCYTES % (AUTO) 18.1 % (13-45); MEAN CORPUSCULAR HGB CONC 33.8 g/dL (32.0-36.0); MEAN CORPUSCULAR VOLUME 95 fl (80-97); MONOCYTES % (AUTO) 7.7 % (3-13); PLATELET COUNT 215 10^3/uL (150-450); RED BLOOD COUNT 3.32 10^6/uL (3.72-5.28); RED CELL DISTRIBUTION WIDTH 16.5 % (11.5-14.0); TOTAL CELLS COUNTED % (AUTO) 100 %; WHITE BLOOD COUNT 9.1 10^3/uL (4.0-10.5)
[2019-11-10 15:28] LABS: ALBUMIN 4.2 g/dL (3.5-5.0); ALKALINE PHOSPHATASE 130 U/L (38-126); ANION GAP 10 (5-19); ASPARTATE AMINO TRANSFERASE 36 U/L (14-36); BILIRUBIN,DIRECT 0.1 mg/dL (0.0-0.4); BILIRUBIN,TOTAL 0.6 mg/dL (0.2-1.3); BLOOD UREA NITROGEN 49 mg/dL (7-20); CALCIUM 8.7 mg/dL (8.4-10.2); CARBON DIOXIDE 23 mmol/L (22-30); CHLORIDE 104 mmol/L (98-107); GLUCOSE 155 mg/dL (75-110); POTASSIUM 4.9 mmol/L (3.6-5.0); TOTAL PROTEIN 6.8 g/dL (6.3-8.2)
[2019-11-10] MEDS ORDERED: OXYCODONE-ACETAMINOPHEN 5-325 MG TABLET PO ONE (18:10)
--- NOTE | 2019-11-10 18:17 | ER Document Report ---
ED General - General Chief Complaint: Fall Injury Stated Complaint: FALL - RIGHT SHOULDER PAIN Time Seen by Provider: 11/10/19 17:45 Primary Care Provider: TENISHA RIVAS MD [Primary Care Provider] - Follow up as needed TRAVEL OUTSIDE OF THE [place] IN LAST 30 DAYS: No - HPI Notes: Patient is a 69-year-old female who presents to the emergency department for evaluation. She complains of right arm pain since a humeral fracture back in May. She states that she is feeling weak. She states that 2 weeks ago she had a near syncopal episode and fall. She states she is had frequent falls. She has already seen her primary care provider about this increased pain in her arm, she does not want to see another orthopedic surgeon. After a long discussion, the patient eventually admits to me that she is supposed to go to court tomorrow in regards to a possible eviction notice. She states she feels overall to infirmed and week to go to that, asks for an excuse. She also asked for some medicine for her right arm. - Related Data Allergies/Adverse Reactions: Beta-Blockers (Beta-Adrenergic Bloc Allergy (Verified 11/10/19 13:34) Iodinated Contrast Media [IV Dye, Iodine Containing] Allergy (Verified 11/10/19 13:34) Home Medications: asa, insulin Past Medical History - General Information source: Patient - Social History Smoking Status: Unknown if Ever Smoked Chew tobacco use (# tins/day): No Drug Abuse: None Family History: Reviewed & Not Pertinent Patient has homicidal ideation: No - Past Medical History Cardiac Medical History: Reports: Hx Coronary Artery Disease, Hx Heart Attack, Hx Hypercholesterolemia, Hx Hypertension Pulmonary Medical History: Reports: Hx Asthma Neurological Medical History: Denies: Hx Cerebrovascular Accident, Hx Seizures Endocrine Medical History: Reports: Hx Diabetes Mellitus Type 2, Hx Hypothyroidism Renal/ Medical History: Reports: Hx End Stage Renal Disease. Denies: Hx Peritoneal Dialysis GI Medical History: Reports: Hx Diverticulitis, Hx Hiatal Hernia, Hx Ulcer. Denies: Hx Hepatitis Musculoskeletal Medical History: Reports Hx Arthritis, Reports Hx Gout, Reports Hx Systemic Lupus Erythematosus Psychiatric Medical History: Reports: Hx Depression Infectious Medical History: Denies: Hx Hepatitis Past Surgical History: Reports: Hx Cardiac Catheterization, Hx Cardiac Surgery - stents, Hx Hysterectomy, Hx Orthopedic Surgery - ORIF left ankle in 2006, Hx Tonsillectomy. Denies: Hx Mastectomy, Hx Open Heart Surgery, Hx Pacemaker - Immunizations Hx Diphtheria, Pertussis, Tetanus Vaccination: Yes Review of Systems - Review of Systems Constitutional: See HPI EENT: No symptoms reported Cardiovascular: See HPI Respiratory: No symptoms reported Gastrointestinal: No symptoms reported Genitourinary: No symptoms reported Musculoskeletal: See HPI Skin: No symptoms reported Neurological/Psychological: No symptoms reported Physical Exam - Notes Notes: Vital signs reviewed, please refer to chart. Head is normocephalic, atraumatic. Pupils equal round, reactive to light. Neck is supple without meningismus. Heart is regular rate and rhythm. Lungs are clear to auscultation bilaterally. Abdomen is soft, nontender, normoactive bowel sounds throughout. Extremities without cyanosis, clubbing. Posterior calves are nontender. Peripheral pulses are equal. Skin is warm and dry. Patient is awake, alert, neurological exam is nonfocal. Examination of the right upper extremity yields extensive old appearing ecchymosis. She has limited range of motion of the shoulder secondary to pain, but full range of motion at the elbow, wrist, fingers, thumb. Sensation is intact, radial pulse 2+. Course - Re-evaluation Re-evalutation: 11/10/19 18:17 Patient presents to the emergency department for evaluation. She complains of frequent falls, weakness, chronic right arm pain. In short, I believe the patient just has multiple chronic medical issues that need addressed by her primary care provider. She also is concerned about a court appearance tomorrow, would like an excuse for that. I did write her a medical excuse. Her laboratory investigations showed chronic changes, nothing acute. Her shoulder and arm x-ray shows callus formation and appropriate healing. She refuses referral onto a different orthopedic surgeon at this time. She is given 1 Percocet here and discharged. She is to follow-up closely with her primary care provider. - Laboratory Result Diagrams: 11/10/19 14:43 11/10/19 14:43 Laboratory results interpreted by me: 11/10/19 11/10/19 14:43 14:43 RBC 3.32 L Hgb 10.6 L Hct 31.5 L RDW 16.5 H Sodium 136.8 L BUN 49 H Creatinine 2.01 H Est GFR ( Amer) 30 L Est GFR (MDRD) Non-Af 24 L Glucose 155 H Alkaline Phosphatase 130 H - Diagnostic Test Radiology reviewed: Image reviewed, Reports reviewed Radiology results interpreted by me: 11/10/19 18:18 Humerus X-Ray 11/10/19 13:53 IMPRESSION: Robust callus formation about the comminuted and displaced proximal humerus fracture which is similar in configuration. No new fractures are identified. Shoulder X-Ray 11/10/19 13:53 IMPRESSION: Robust callus formation about the known proximal humerus fracture. No new fractures are identified. Discharge - Discharge Clinical Impression: Generalized weakness, Chronic pain of right upper extremity Fracture of proximal humerus with routine healing Qualifiers: Fracture type: closed Fracture morphology: other fracture Laterality: right Condition: Stable Disposition: HOME, SELF-CARE Instructions: Weakness ([facility]), Chronic Pain Control ([facility]) Additional Instructions: Follow-up with your primary care provider this week. Return to the emergency department with worsening or new concerning symptoms of any sort. Referrals: TENISHA RIVAS MD [Primary Care Provider] - Follow up as needed
[2019-11-10 18:20] VITALS: BP 127/70
== END 2019-11-10 18:45 | disposition home or self-care (01) ==
LOC: ER 13:02
DX: S42.201D Unspecified fracture of upper end of right humerus, subsequent encounter for fracture with routine healing (principal); W19.XXXD Unspecified fall, subsequent encounter; R29.6 Repeated falls; R53.1 Weakness; I25.10 Atherosclerotic heart disease of native coronary artery without angina pectoris; I10 Essential (primary) hypertension; I25.2 Old myocardial infarction; J45.909 Unspecified asthma, uncomplicated; E11.9 Type 2 diabetes mellitus without complications; Z79.82 Long term (current) use of aspirin; Z79.4 Long term (current) use of insulin; Z88.8 Allergy status to other drugs, medicaments and biological substances; Z91.041 Radiographic dye allergy status
CPT/HCPCS: 99284; 36415; 85025; 80053; 73060; 73030; A9270